=== PATIENT | male | born 1975 | race Caucasian/White ===

== ENCOUNTER → 2016-10-02 08:14 | Outpatient (CLI) | payer BC ==
[~2016-10-02 08:14] MED LIST: BUPRENORPHIN-N1 EACH SL; CELEXA20 MG PO; DEPAKOTE500 MG PO; PEPCID40 MG PO; PERCOCET 10/3251 TA1 PO; PROTONIX40 MG PO; SUBOXONE MIS 8-2; VALIUM5 MG PO; VYVANSE70 MG PO
[2016-11-06 14:15] VITALS: BMI 22.9
== END | disposition home or self-care (01) ==
LOC: D.MRI 08:14
DX: K86.9 Disease of pancreas, unspecified (principal)

== ENCOUNTER 2016-10-26 06:26 | Inpatient (IN) | payer BC ==
[2016-10-25 14:02] LABS: BASOPHILS 0.1 % (0.0-2.0); EOSINOPHILS 0.7 % (0-7); HEMATOCRIT 45.6 % (42.0-54.0); LYMPHOCYTES 28.7 % (15-50); MCH 29.5 pg (26.0-34.0); MCHC 35.1 g/dL (31.0-37.0); MEAN PLATELET VOLUME 10.1 fL (7.4-10.4); MONOCYTES 6.6 % (2-11); NEUTROPHILS 63.9 % (40-80); PLATELET COUNT 183 10x3/uL (130-400); RBC 5.43 10x6/uL (4.20-6.10); RDW 12.4 % (11.5-14.5); WBC 7.2 10x3/uL (4.8-10.8)
[2016-10-25 14:20] LABS: CALC OSMOLALITY 283 mosm/kg (275-300); CALCIUM 9.6 mg/dL (8.5-10.1); CARBON DIOXIDE 32.3 mmol/L (21.0-32.0); CHLORIDE - SERUM 102 mmol/L (98-107); CREATININE - SERUM 0.9 mg/dL (0.6-1.3); GLUCOSE 179 mg/dL (74-106); SODIUM 141 mmol/L (136-145); UREA NITROGEN 10 mg/dL (7-18); eGFR NON AFRICAN AMERICAN > 90 mL/min (90-120)
[~2016-10-26] VITALS: Ht 177.8 cm; Wt 81.6 kg
[~2016-10-26 06:26] MED LIST changes: -PEPCID40 MG PO; -PERCOCET 10/3251 TA1 PO; -PROTONIX40 MG PO
[2016-10-26 07:45] VITALS: BP 111/74; BMI 25.8
[2016-10-26 11:24] LABS: BASOPHILS 0.1 % (0.0-2.0); EOSINOPHILS 0.1 % (0-7); HEMATOCRIT 37.2 % (42.0-54.0); HEMOGLOBIN 12.8 g/dL (13.5-17.5); IMMATURE GRANULOCYTES 0.2 % (0-5); LYMPHOCYTES 14.9 % (15-50); MCH 28.8 pg (26.0-34.0); MCHC 34.4 g/dL (31.0-37.0); MCV 83.6 fL (80.0-100.0); MEAN PLATELET VOLUME 10.1 fL (7.4-10.4); MONOCYTES 3.6 % (2-11); NEUTROPHILS 81.1 % (40-80); PLATELET COUNT 203 10x3/uL (130-400); RBC 4.45 10x6/uL (4.20-6.10); RDW 12.3 % (11.5-14.5)
[2016-10-26 11:32] LABS: WBC 14.4 10x3/uL (4.8-10.8)
--- NOTE | 2016-10-26 12:55 | NUR ---
THE PATIENT TAKES SUBOXONE AT HOME AND HAS POOR PAIN CONTROL. UMPON ARRIVAL TO RECOVERY HE WAS SCREAMING AND THRASHING ARMS. VERSED DECREASED HIS AGITATION SOME.
--- NOTE | 2016-10-26 13:06 | NUR ---
FSBS 264 ANESTHESIA ORDERED NO TREATMENT FOR BS AT THIS TIME
--- NOTE | 2016-10-26 13:08 | NUR ---
DR MONTAGUE NOTIFIED OF PTS PAIN AND HE CAME TO BEDSIDE AND REVIEWED PACU MEDS GIVEN. NO MORE MEDS ORDERED AND DR MONTAGUE ORDERED TRANSPORT TO FLOOR.
[2016-10-26 13:25] VITALS: BP 128/88
[2016-10-26 13:58] VITALS: BP 128/86; BMI 25.8
--- NOTE | 2016-10-26 14:04 | NUR ---
PT RECIEVED FROM PACU PER BED. COMPLAINTS OF UNCONTROLLED PAIN-WILL SET UP BALANCE CLERK. TOVA X 2 NOTED WITH 1 DRAIN FULL OF BLOODY DRAINAGE AND THE OTHER DRAIN STILL TO SUCTION. MIDLINE DRESSING NOTED CLEAN DRY AND INTACT. NG NOTED TO RIGHT NARE DRAINING DARK DRAINAGE CONNECTED TO LIS. NO BOWEL SOUNDS HEARD. LUNG SOUNDS CLEAR BILAT. SCDS ON BILAT. ACEVEDO NOTED TO STAT LOCK. ETC02 CONNECTED AND READING OF 25 MM/HG. CALL LIGHT N REACH AND FAMILY AT BEDSIDE
--- NOTE | 2016-10-26 15:46 | NUR ---
PT RESTING WELL IN BED AFTER DOSE OF ATIVAN. PER ORDER FOR ANXIETY
[2016-10-26 20:00] VITALS: BP 150/78
[2016-10-27 03:00] VITALS: BP 135/83
[2016-10-27 06:09] LABS: ANION GAP 14.6 mmol/L (8-16); CALCIUM 8.4 mg/dL (8.5-10.1); CARBON DIOXIDE 24.5 mmol/L (21.0-32.0); HEMATOCRIT 37.9 % (42.0-54.0); HEMOGLOBIN 13.3 g/dL (13.5-17.5); MAGNESIUM - SERUM 1.6 mg/dL (1.8-2.4); MCH 29.1 pg (26.0-34.0); MCHC 35.1 g/dL (31.0-37.0); MCV 82.9 fL (80.0-100.0); MEAN PLATELET VOLUME 10.4 fL (7.4-10.4); PHOSPHOROUS 3.7 mg/dL (2.5-4.9); PLATELET COUNT 276 10x3/uL (130-400); POTASSIUM - SERUM 4.1 mmol/L (3.5-5.1); RBC 4.57 10x6/uL (4.20-6.10); RDW 12.5 % (11.5-14.5); WBC 23.3 10x3/uL (4.8-10.8)
[2016-10-27 06:13] LABS: CREATININE - SERUM 1.3 mg/dL (0.6-1.3)
[2016-10-27 07:16] LABS: LYMPHOCYTES 9 % (15-50); MONOCYTES 4 % (2-11); NEUTROPHILS 87 % (40-80); PLATELET ESTIMATE NORMAL
[2016-10-27 07:51] VITALS: BP 128/84
--- NOTE | 2016-10-27 08:32 | NUR ---
PT NOTED THIS AM TO HAVE MORE ANXIETY TURNED VOLUME DOWN ON PULSE OXIMETER LESS ANXIETY NOTED. PT HAD ATIVAN PER ORDER THIS AM FOR ANXIETY MOTHER AT BEDSIDE. NEW ORDER PER DR HASTINGS FOR MG++ RIDER AND TORADOL GIVEN IV PER ORDER MG++ OVER 2 HR INFUSING AT THIS TIME. TOVA DRAIN X 2 PATENT TO SANGUANOUS DRAINAGE MIDLINE DRESSING INTACT. NGT PATENT TO DARK BROWN FLUID TO LIS.
[2016-10-27 12:22] VITALS: Ht 177.8 cm; Wt 81.6 kg
[2016-10-27 12:26] VITALS: BP 124/81
--- NOTE | 2016-10-27 13:33 | OP ---
PATIENT NAME: GILDARDO VASQUEZ JR MEDICAL RECORD: [id number] :73 LOCATION:[id number] ADMISSION DATE:10/26/16 SURGEON: DAVIDE HASTINGS MD DATE OF OPERATION: 10/26/2016 PREOPERATIVE DIAGNOSES: 1. Distal pancreatic mass. 2. Incarcerated ventral hernia. 3. Incarcerated umbilical hernia. 4. Tobacco dependence syndrome. 5. Bipolar disorder. POSTOPERATIVE DIAGNOSES: 1. Distal pancreatic mass. 2. Incarcerated ventral hernia. 3. Incarcerated umbilical hernia. 4. Tobacco dependence syndrome. 5. Bipolar disorder. PROCEDURES: 1. Distal pancreatectomy with splenectomy. 2. Partial posterior gastrectomy with immediate repair. 3. Ventral and umbilical hernia repair with excision of umbilicus and abdominal wall inflammatory mass. SURGEON: Davide Hastings MD. REPORT OF PROCEDURE: The patient's abdomen was prepped and draped in sterile fashion. A midline incision was performed using a 10 blade. Electrocautery was used to dissect through the subcutaneous tissues and fascia. We entered the abdominal cavity. Once in the abdominal cavity, we followed the incision down towards the umbilical and ventral hernias. These ventral hernias had some incarcerated fatty tissue present within it. The surrounding tissues were very swollen. Once the tissues were freed up, I could feel another area of very firm swollen tissue in the fascia and extending into the muscular tissue on the left side of the abdomen. We excised all of this inflammatory tissue including the umbilicus, which was very inflamed with the skin excoriated and with the patient's known pancreatic mass, there is concern that this might actually be a metastatic disease. We removed all grossly abnormal tissue from the anterior abdominal wall and skin. This was sent off for permanent specimen. We then approached the patient's pancreas. We started by taking down any attachments we could find to the patient's spleen from the splenocolic ligament. This was done using electrocautery. We were then able to mobilize the spleen medially. The spleen itself was very large and inflamed. As we continued our dissection superiorly to free up any adhesions of the spleen to the diaphragm, we were able to get around to the stomach and can see that this large pancreatic mass was actually adherent to the posterior wall of the stomach. I continued my dissection down into the lesser sac using an EnSeal device. Once in the lesser sac, we could clearly visualize this attachment of the stomach to the anterior aspect of the mass. I was able to get inferior to the mass and then took down any of the mesenteric attachments that I could find. We were able to free up the inferior aspect of the pancreas and get past the mass. There were some enlarged blood vessels, which were encountered doing this and these were tied off with 2-0 silk ties. We continued our dissection from the inferior aspect of the pancreas out lateral. As we continued this, we were able to mobilize the OPERATIVE REPORT [id number] GILDARDO VASQUEZ JR spleen more medially. Eventually, got this completely freed up and started on the superior aspect of the patient's pancreas, we took down the peritoneal attachments and began mobilization of the superior attachments of the spleen to the posterior abdomen. As we continued this dissection eventually, we got held up by the attachments of the mass to the posterior stomach and eventually just took a chunk of the posterior aspect of the stomach, which is about the size of half dollar. At this point, we were able to dissect out the pancreas, which was normal. As we got more proximal towards the head, we were able to dissect posterior to the pancreas over the portal vein. The pancreas was then transected with a 60 white load Endo-SOLOMON stapler. The splenic artery was dissected free and this was transected with a 60 white load Endo-SOLOMON and was tied off with 2-0 silk ties. As we continued our dissection medially to take the spleen off, we were able to encounter the patient's splenic vein. This was transected with 3 ties proximally with 2-0 silks and once tie laterally. At this point, we had all the vascular attachments off of the spleen and pancreas. We continued our dissection with the EnSeal and was eventually able to take the pancreas off the posterior abdominal wall. It appeared that part of the patient's adrenal gland was adherent to this mass and a portion of the left adrenal was removed. After we had taken the mass out, we sent it off for frozen specimen and came back as pancreatic adenocarcinoma with the margins being clear. The attachments of the stomach did not show any evidence of malignant invasion. The area was irrigated out thoroughly with normal saline and any sign of any bleeding was treated with either 2-0 stick ties or with electrocautery. Eventually, we just had a little bit of oozing from the bed where the adrenal gland was present and we eventually just put some Deonna around this area and allowed it to sit for a while. At this point, we had no sign of any active bleeding. A 19-Tuvaluan Nikhil drains times 2 were inserted through the left upper quadrant and the lateral subcostal region. The superior one was placed deep in the recess of the diaphragm where the spleen had been present and rotated this around to the distal end of the pancreas. The other one was placed more over the abdominal tissues and again, rested at the distal end of the pancreas and posterior to the stomach. The gastrotomy was then closed with a 2-layer closure using internal layer of running 3-0 Vicryls followed by multiple Lemberted 3-0 silks. The NG tube was affixed in good position and it rested in the antrum of the stomach. At this point, the midline fascia was reapproximated with running #1 loop PDS times 2 and the skin was closed with matilde. A total of 20 cc of 0.25% Marcaine with epinephrine was infused in the posterior aspect of the patient's fascial layer as TAP block. The skin was then closed with matilde after the wound was irrigated out with normal saline. COMPLICATIONS: None. CONDITION: Stable. ANESTHESIA: General endotracheal and a TAP block. BLOOD LOSS: 500 mL. TRANSINT:[id number] Voice Confirmation ID: [id number] DOCUMENT ID: [id number] OPERATIVE REPORT [id number] GILDARDO VASQUEZ JR, CHRISTIAN MD at 1333 CC: SHANTE PARADA MD and MICHAEL ALLEN MD [id number] DICTATION DATE: 10/26/16 1246 MOTORCYCLE DELIVERER: 10/26/16 1404 ADM IN [facility] [address] [facility] [place] [address]
[2016-10-27 16:09] VITALS: BP 135/77
--- NOTE | 2016-10-27 19:38 | NUR ---
ASSESSMENT COMPLETED, ACEVEDO DRAINING TO GRAVITY, ALL IV FLUIDS INFUSING WITHOUT DIFFICULTY, ECO2 MONITOR IN PLACE ALONG WITH SCD'S, NO ACUTE DISTRESS NOTED, SR'S UP X2, CL IN REACH, WILL MONITOR
--- NOTE | 2016-10-27 22:26 | NUR ---
PRN ATIVAN GIVEN PER REQUEST FOR ANXIETY ALONG WITH ICE CHIPS, KRISHAN WELL, DENIES OTHER NEEDS AT THIS TIME, NO DISTRESS NOTED, CL IN REACH
[2016-10-28 04:00] VITALS: BP 107/67
[2016-10-28 05:43] LABS: BASOPHILS 0.1 % (0.0-2.0); EOSINOPHILS 0.1 % (0-7); HEMATOCRIT 34.7 % (42.0-54.0); HEMOGLOBIN 11.9 g/dL (13.5-17.5); IMMATURE GRANULOCYTES 0.3 % (0-5); LYMPHOCYTES 9.9 % (15-50); MCH 29.1 pg (26.0-34.0); MCHC 34.3 g/dL (31.0-37.0); MCV 84.8 fL (80.0-100.0); MEAN PLATELET VOLUME 10.1 fL (7.4-10.4); MONOCYTES 5.7 % (2-11); NEUTROPHILS 83.9 % (40-80); PLATELET COUNT 250 10x3/uL (130-400); RBC 4.09 10x6/uL (4.20-6.10); RDW 12.5 % (11.5-14.5); WBC 25.1 10x3/uL (4.8-10.8)
[2016-10-28 06:09] LABS: CALC OSMOLALITY 272 mosm/kg (275-300); CALCIUM 8.5 mg/dL (8.5-10.1); CARBON DIOXIDE 27.6 mmol/L (21.0-32.0); CHLORIDE - SERUM 99 mmol/L (98-107); GLUCOSE 191 mg/dL (74-106); POTASSIUM - SERUM 3.6 mmol/L (3.5-5.1); SODIUM 134 mmol/L (136-145); UREA NITROGEN 13 mg/dL (7-18)
[2016-10-28 06:11] LABS: CREATININE - SERUM 0.8 mg/dL (0.6-1.3); PHOSPHOROUS 1.9 mg/dL (2.5-4.9); eGFR NON AFRICAN AMERICAN > 90 mL/min (90-120)
--- NOTE | 2016-10-28 07:00 | NUR ---
REPORT RECIEVED ASSUMED CARE. PATIENT IN BED WITH IV INTACT. NO COMPLAINTS. CALL LIGHT WITHIN REACH.
[2016-10-28 08:12] VITALS: BP 118/62
--- NOTE | 2016-10-28 08:45 | NUR ---
ASSESSMENT COMPLETE, VS STABLE. NO COMPLAINTS AT THIS TIME. IV INTACT. DRESSING TO ABDDOMEN CLEAN AND DRY. TOVA X 2 INTACT AND COMPRESSED. BSCDS ON AND WORKING. ACEVEDO INTACT. CALL LIGHT WITHIN REACH. FAMILY AT BEDSIDE.
[2016-10-28 11:37] VITALS: BP 139/87
--- NOTE | 2016-10-28 13:00 | NUR ---
PATIENT IN BED WITH IV INTACT. NO COMPLAINTS AT THIS TIME. CALL LIGHT WITHIN REACH. EYES CLOSED RESTING QUIETLY.
[2016-10-28 15:07] VITALS: BP 123/81
--- NOTE | 2016-10-28 15:57 | NUR ---
PATIENT ACEVEDO REMOVED AT THIS TIME. TOLERATED WITH SMALL AMOUNT OF PAIN. IV INTACT. NO COMPLAINTS. CALL LIGHT WITHIN REACH.
--- NOTE | 2016-10-28 18:27 | NUR ---
PATIENT IN BED WITH IV INTACT. BSCDS ON AND WORKING. DRESSING TO ABDOMEN CDI. TOVA X 2 INTACT AND COMPRESSED. NO COMPLAINTS. CALL LIGHT WITHIN REACH.
--- NOTE | 2016-10-28 18:32 | NUR ---
PATIENT IN BED WITH IV INTACT. NO COMPLAINTS AT THIS TIME. BSCDS ON AND WORKING. CALL LIGHT WITHIN REACH.
--- NOTE | 2016-10-28 19:45 | NUR ---
LYING IN BED AWAKE, FAMILY AT BEDSIDE, ASSESSMENT COMPLETED, NO ACUTE DISTRESS NOTED, FALL PRECAUTIONS IN PLACE, CL IN REACH, WILL MONITOR
--- NOTE | 2016-10-28 21:04 | NUR ---
MEDS GIVEN PER KRISHAN MUNOZ WELL, FAMILY IN ROOM, EDUCATED ON AIRCRAFT REFUELLER USE, UNDERSTANDING VOICED, CL IN REACH
[2016-10-28 21:58] VITALS: BP 117/79
--- NOTE | 2016-10-28 23:07 | NUR ---
RESTING WITH EYES CLOSED, RESP WITH EASE, ECO2 MONITOR IN PLACE, FAMILY IN ROOM, CL IN REACH
[2016-10-29 05:00] VITALS: BP 135/74
--- NOTE | 2016-10-29 07:00 | NUR ---
REPORT RECIEVED ASSUMED CARE. PATIENT IN BED WITH NO COMPLAINTS. IV INTACT. NGT INTACT. CALL LIGHT WITHIN REACH.
--- NOTE | 2016-10-29 08:15 | NUR ---
PATIENT ASSESSMENT COMPLETE, VS STABLE. NO COMPLAINTS AT THIS TIME. IV INTACT. NGT LIWS. TOVA X 2 COMPRESSED AND DRESSING CDI. ABDOMINAL INCISION WITH DRESSING CDI. CALL LIGHT WITHIN REACH.
[2016-10-29 08:37] VITALS: BP 133/75
[2016-10-29 12:00] VITALS: BP 126/71
--- NOTE | 2016-10-29 12:50 | NUR ---
PATIENT IN BED EYES CLOSED RESTING QUIETLY AT THIS TIME. CALL LIGHT WITHIN REACH.
[2016-10-29 15:58] VITALS: BP 115/71
--- NOTE | 2016-10-29 16:30 | NUR ---
PATIENT IN BED WITH NO COMPLAINTS AT THIS TIME. IV INTACT. NGT LIWS. CALL LIGHT WITHIN REACH.
--- NOTE | 2016-10-29 18:08 | NUR ---
PATIENT IN BED WITH NO COMPLAINTS AT THIS TIME. NGT AND TOVA DRAINS INTACT. BSCDS ON AND WORKING. IV INTACT. CALL LIGHT WITHIN REACH.
--- NOTE | 2016-10-29 19:10 | NUR ---
RECIEVED SHIFT REPORT. PT IS LYING IN BED. ALERT AND ORIENTED AND ABLE TO VERBALIZE NEEDS. IV IS PATENT AND FLUIDS ARE RUNNING PER ORDER. SCD'S OFF AT THIS TIME. NGT TO RIGHT NARE PATENT AND CONNECTED TO LIWS PER ORDER. DRESSING TO ABDOMEN C/D/I. TOVA DRAINS X 2 INTACT AND COMPRESSED WITH SITE CLEAN. PT STATES PAIN IS 4/10. PT HAS BEEN UP WITH PHYSICAL THERAPY BUT IS ABLE TO TURN SELF IN BED FOR COMFORT AND SKIN CARE. NO NEEDS ARE VERBALIZED AT THIS TIME. WILL CONTINUE TO MONITOR. SIDE RAILS ARE UP X 2. BED IS IN LOWEST POSITION. CALL LIGHT IS WITHIN REACH.
--- NOTE | 2016-10-29 19:11 | NUR ---
DR STEVE CARTAGENA. REMOVAL OF NGT POSSIBLE TOMORROW. PATIENT C/O "CRAMPS" @ SURGICAL SITE. DAVOL DRAINS X 2. USING PLASTIC SHEETING CUTTER FOR PAIN MANAGEMENT.
--- NOTE | 2016-10-29 20:29 | NUR ---
SHIFT ASSESSMENT COMPLETED. NIGHT MEDS GIVEN WITH NO PROBLEMS. PT REQUESTING PRN ATIVAN FOR ANXIETY. ADMINISTERED PER ORDER. DENIES FURTHER NEEDS. WILL MONITOR. SIDE RAILS X 2. BED LOW. CALL LIGHT IN REACH.
[2016-10-29 21:00] VITALS: BP 131/78
[2016-10-30 01:00] VITALS: BP 122/68
[2016-10-30 05:00] VITALS: BP 133/82
--- NOTE | 2016-10-30 07:00 | NUR ---
REPORT RECIEVED ASSUMED CARE. PATIENT IN BED WITH IV INTACT. NO COMPLAINTS AT THIS TIME. CALL LIGHT WITHIN REACH.
--- NOTE | 2016-10-30 07:50 | NUR ---
ASSESSMENT COMPLETE, VS STABLE. COMPLAINTS OF ABDOMINAL PAIN AT THIS TIME. EXPLAINED TO PUSH MATERIAL HANDLER LOADER BUTTON FOR PAIN. VERBALIZED UNDERSTANDING. IV INTACT. NGT LIWS. TOVA X 2 CDI AND COMPRESSED. REFUSES BSCDS AT THIS TIME. CALL LIGHT WITHIN REACH.
[2016-10-30 07:56] VITALS: BP 125/70
[2016-10-30 09:01] LABS: BASOPHILS 0.1 % (0.0-2.0); EOSINOPHILS 1.1 % (0-7); HEMATOCRIT 32.2 % (42.0-54.0); IMMATURE GRANULOCYTES 0.3 % (0-5); LYMPHOCYTES 8.1 % (15-50); MCH 28.8 pg (26.0-34.0); MCHC 34.2 g/dL (31.0-37.0); MCV 84.3 fL (80.0-100.0); NEUTROPHILS 81.4 % (40-80); RBC 3.82 10x6/uL (4.20-6.10); RDW 12.6 % (11.5-14.5); WBC 15.7 10x3/uL (4.8-10.8)
[2016-10-30 09:02] LABS: PLATELET COUNT 409 10x3/uL (130-400)
[2016-10-30 09:15] LABS: CALC OSMOLALITY 282 mosm/kg (275-300); CALCIUM 8.7 mg/dL (8.5-10.1); CARBON DIOXIDE 32.5 mmol/L (21.0-32.0); CHLORIDE - SERUM 101 mmol/L (98-107); CREATININE - SERUM 0.7 mg/dL (0.6-1.3); GLUCOSE 191 mg/dL (74-106); MAGNESIUM - SERUM 1.8 mg/dL (1.8-2.4); PHOSPHOROUS 3.6 mg/dL (2.5-4.9); POTASSIUM - SERUM 3.8 mmol/L (3.5-5.1); SODIUM 139 mmol/L (136-145); UREA NITROGEN 13 mg/dL (7-18); eGFR NON AFRICAN AMERICAN > 90 mL/min (90-120)
--- NOTE | 2016-10-30 09:19 | NUR ---
Patient Name: GILDARDO VASQUEZ Admission Status: Elective Accout number: [id number] Admission Date: 10-26-2016 : 1975 Admission Diagnosis: Attending: AHMET Current LOS: 4 Anticipated DC Date: 11-03-2016 Planned Disposition: Home or Self Care Primary Insurance: [employer] O Discharge Planning Comments: CM MET WITH PATIENT REGARDING D/C NEEDS AND PLANS. PATIENT STATED HE LIVES WITH HIS MOTHER AND SHE WILL DRIVE HIM HOME AT DISCHARGE. PATIENT STATED THERE ARE 3 STEPS W/RAILS TO ENTER HOME AND NO STAIRS INSIDE. PATIENT STATED HE IS INDEPENDENT WITH HIS CARE AND HAS A WALKER, AND CANE AT HOME IF NEEDED. PATIENTS PCP IS DR. ALLEN AND USES [facility]. PATIENT REFUSED HOME HEALTH AT THIS TIME AND STATED IF HIS DOCTOR SAYS HE NEEDS IT AT DISCHARGE THEN HE WILL USE HOME HEALTH. CM WILL CONTINUE TO FOLLOW PATIENT WITH D/C NEEDS AND PLANS. PCP DR. ALLEN [facility]- [phone] [place] [phone] Smoke Jumper: Eloisa Castano Is the patient Alert and Oriented? Yes 0 * How many steps to enter\exit or inside your home? 3 W/RAILS 0 * PCP DR. ALLEN 0 * [facility]acy [facility] 0 * Preadmission Environment Home with Family 0 * ADLs Independent 0 * Equipment Cane Walker 0 * List name and contact numbers for known caregivers / representatives who currently or will assist patient after discharge: [place] [place] [phone] * Community resources currently utilized None 0 * Additional services required to return to the preadmission environment? Yes 0 * Can the patient safely return to the preadmission environment? Yes 0 * Has this patient been hospitalized within the prior 30 days at any hospital? No 0 Grand Total: 0
--- NOTE | 2016-10-30 11:45 | NUR ---
PATIENT NGT DISCONTINUED PER PHYSICIANS ORDERS BY VERNON BURRIS. PATIENT RECIEVED CLEAR LIQUIDS AT THIS TIME. IV INTACT. NO COMPLAINTS. CALL LIGHT WITHIN REACH.
[2016-10-30 12:42] VITALS: BP 136/83
--- NOTE | 2016-10-30 13:00 | NUR ---
PATIENT TOLERATED CLEARS WITH NO N/V. IV INTACT. FAMILY AT BEDSIDE. CALL LIGHT WITHIN REACH.
--- NOTE | 2016-10-30 13:11 | NUR ---
NUTRITION MONITORING & EVAL CHART REVIEWED. CLEAR LIQUID DIET STARTED. WILL MONITOR DIET ADVANCEMENT, PO INTAKE. RD FOLLOWING
[2016-10-30 16:07] VITALS: BP 113/60
--- NOTE | 2016-10-30 16:45 | NUR ---
PATIENT SITTING UP IN BED WITH NO COMPLAINTS. IV INTACT. TOVA X 2 INTACT. DRESSING TO ABDOMINAL INCISION CLEAN AND DRY. CALL LIGHT WITHIN REACH.
--- NOTE | 2016-10-30 18:45 | NUR ---
PATIENT IN BED WITH IVINTACT. NO COMPLAINTS AT THIS TIME. IV INTACT. CALL LIGHT WITHIN REACH.
--- NOTE | 2016-10-30 19:10 | NUR ---
RECIEVED SHIFT REPORT. PT IS LYING IN BED. ALERT AND ORIENTED AND ABLE TO VERBALIZE NEEDS. IV IS PATENT AND FLUIDS ARE RUNNING PER ORDER. SCD'S OFF AT THIS TIME. PT IS AMBULATORY WITH ASSISTANCE BUT IS ABLE TO TURN SELF IN BED FOR COMFORT AND SKIN CARE. DRESSING TO MIDLINE ABDOMEN C/D/I. TOVA DRAINS X 2 INTACT WITH SITE C/D AND BULBS COMPRESSED. PT STATES PAIN IS 5/10 WITH MEDICAL CENTER MANAGER PUMP. NO NEEDS ARE VERBALIZED AT THIS TIME. WILL CONTINUE TO MONITOR. SIDE RAILS ARE UP X 2. BED IS IN LOWEST POSITION. CALL LIGHT IS WITHIN REACH.
--- NOTE | 2016-10-30 20:05 | NUR ---
SHIFT ASSESSMENT COMPLETED. PT STATUS REMAINS UNCHANGED FROM PREVIOUS. STUDENT WITH INSTRUCTOR WILL BE GIVING NIGHT TIME MEDS. NO NEEDS ARE VOICED. WILL MONITOR. SIDE RAILS X 2. BED LOW. CALL LIGHT IN REACH.
[2016-10-30 21:00] VITALS: BP 119/73
[2016-10-31 01:00] VITALS: BP 122/68
[2016-10-31 05:00] VITALS: BP 110/68
[2016-10-31 05:50] LABS: BASOPHILS 0.3 % (0.0-2.0); EOSINOPHILS 4.9 % (0-7); HEMATOCRIT 30.4 % (42.0-54.0); HEMOGLOBIN 10.2 g/dL (13.5-17.5); IMMATURE GRANULOCYTES 0.3 % (0-5); LYMPHOCYTES 15.6 % (15-50); MCH 28.6 pg (26.0-34.0); MCHC 33.6 g/dL (31.0-37.0); MCV 85.2 fL (80.0-100.0); MEAN PLATELET VOLUME 9.3 fL (7.4-10.4); MONOCYTES 13.4 % (2-11); NEUTROPHILS 65.5 % (40-80); PLATELET COUNT 482 10x3/uL (130-400); RBC 3.57 10x6/uL (4.20-6.10); RDW 12.3 % (11.5-14.5); WBC 13.8 10x3/uL (4.8-10.8)
[2016-10-31 06:25] LABS: CALC OSMOLALITY 282 mosm/kg (275-300); CALCIUM 8.4 mg/dL (8.5-10.1); CHLORIDE - SERUM 101 mmol/L (98-107); CREATININE - SERUM 0.7 mg/dL (0.6-1.3); GLUCOSE 154 mg/dL (74-106); MAGNESIUM - SERUM 1.8 mg/dL (1.8-2.4); PHOSPHOROUS 4.3 mg/dL (2.5-4.9); POTASSIUM - SERUM 3.6 mmol/L (3.5-5.1); SODIUM 140 mmol/L (136-145); UREA NITROGEN 14 mg/dL (7-18); eGFR NON AFRICAN AMERICAN > 90 mL/min (90-120)
--- NOTE | 2016-10-31 08:18 | NUR ---
PT. AOX4 RESP.EVEN AND NONLABORED LUNG SOUNDS CLEAR. PT. DENIES NEEDS AT THIS TIME. SITTING IN BED AND EATING BREAKFAST. SKIN PINK WARM AND DRY WITH ABD SI CLEAN DRY AND INTACT WITH NO DRAINAGE ON DRESSINGS.[id number](HYPOACTIVE) BED IN LOWEST SETTING, CALL LIGHT WITHIN REACH. WILL CONTINUE TO MONITOR.
[2016-10-31 08:19] VITALS: BP 94/48
--- NOTE | 2016-10-31 10:22 | NUR ---
IV TO RIGHT FOREARM IS LEAKING. D/C WITH CATHETER INTACT. RESITED FURTHER UP RIGHT FOREARM WITH 20G AFTER ONE ATTEMPT.
[2016-10-31 11:46] VITALS: BP 98/65
--- NOTE | 2016-10-31 14:50 | NUR ---
TOVA DRAIN #2 REMOVED VIA ORDERS WITH 23 ML OF SERSAGUINOUS DRAINAGE PT TOLERATED WITH MINIMAL DISCOMFORT AND DENIES PAIN AT THIS TIME. WILL CONTINUE TO MONITOR
[2016-10-31 15:08] VITALS: BP 91/63
--- NOTE | 2016-10-31 19:20 | NUR ---
RECIEVED SHIFT REPORT. PT IS LYING IN BED. ALERT AND ORIENTED AND ABLE TO VERBALIZE NEEDS. IV IS PATENT AND SALINE LOC AT THIS TIME. PT IS AMBULATORY BUT WAS INSTRUCTED TO CALL FOR ANY ASSISTANCE NEEDED. DRESSING TO MIDLINE ABDOMEN C/D/I. TOVA DRAIN TO LEFT ABDOMEN INTACT WITH SITE CLEAN AND COMPRESSED. PT STATES PAIN IS 5/10. SCD'S OFF PER PT REQUEST. NO NEEDS ARE VERBALIZED AT THIS TIME. WILL CONTINUE TO MONITOR. SIDE RAILS ARE UP X 2. BED IS IN LOWEST POSITION. CALL LIGHT IS WITHIN REACH.
[2016-10-31 21:00] VITALS: BP 108/62
--- NOTE | 2016-10-31 21:40 | NUR ---
SHIFT ASSESSMENT COMPLETED. NIGHT MEDS GIVEN WITH NO PROBLEMS. PT C/O PAIN 12/11. ADMNISTERED PRESCRIBED PRN PERCOCET PER ORDER. DENIES FURTHER NEEDS. WILL MONITOR. SIDE RAILS X 2. BED LOW. CALL LIGHT IN REACH.
[2016-11-01 01:00] VITALS: BP 110/66
[2016-11-01 05:00] VITALS: BP 122/60
[2016-11-01 07:54] VITALS: BP 93/50
[2016-11-01 12:31] VITALS: BP 110/57
[2016-11-01] MEDS ORDERED: PERCOCET 10/3251 TA1 PO (12:55)
[2016-11-01] MEDS ORDERED: PROTONIX40 MG PO (12:55)
--- NOTE | 2016-11-01 13:10 | NUR ---
CM REASSESSMENT NOTE: PATIENT IS DISCHARGING HOME TODAY AND DENIED HOME HEALTH OR ANY OTHER NEEDS. PATIENTS MOTHER IS DRIVING HIM HOME.
--- NOTE | 2016-11-01 13:35 | NUR ---
REQUESTED AND GIVEN ONE PERCOCET PO FOR C/O ABDOMINAL PAIN LEVEL 5. WILL MONITOR.
--- NOTE | 2016-11-01 14:12 | NUR ---
PT AND SPOUSE INSTRUCTED ON PROPER TOVA DRAIN SITE CLEANING AND MEASUREMENT OF DRAINAGE FROM DRAIN. SIGNS AND SYMPTOMS OF INFECTION TO REPORT TO . PT. AND GAVE RETURN DEMOSTRATION ON CARE AND MONITORING OF TOVA DRAIN. ONE NEW PRESCRIPTION FOR PAIN MEDICATION SENT WITH PT. AND . PT. VERBALIZES UNDERSTANDING FOR ALL DISCHARGE INSTRUCTIONS.
--- NOTE | 2016-11-01 14:13 | NUR ---
IV DISCONTINUED WITH CATHETER INTACT. PT. TAKEN TO PRIVATE VEHICLE VIA WHEELCHAIR. PT. DENIES NEEDS AT THIS TIME.
== END 2016-11-01 14:15 | disposition home or self-care (01) | DRG 406 ==
LOC: D.SDCHOLD 06:26 → D.MS 06:26 → D.SDCHOLD 08:30 → D.MS 13:13
PROVIDERS: Anesthesiology; ADMIT Surgery
PROC: 07TP0ZZ Resection of Spleen, Open Approach (ICD-10-PCS; 2016-10-26)
PROC: 0DB60ZZ Excision of Stomach, Open Approach (ICD-10-PCS; 2016-10-26)
PROC: 0WQF0ZZ Repair Abdominal Wall, Open Approach (ICD-10-PCS; 2016-10-26)
PROC: 0FBG0ZZ Excision of Pancreas, Open Approach (ICD-10-PCS; principal; 2016-10-26 08:45)
DX: C25.9 Malignant neoplasm of pancreas, unspecified (principal); K43.6 Other and unspecified ventral hernia with obstruction, without gangrene; K42.0 Umbilical hernia with obstruction, without gangrene; D64.89 Other specified anemias; R73.9 Hyperglycemia, unspecified; F17.200 Nicotine dependence, unspecified, uncomplicated; F31.9 Bipolar disorder, unspecified

== ENCOUNTER 2016-11-05 11:38 | Inpatient (IN) | payer BC ==
[~2016-11-05] VITALS: Ht 177.8 cm; Wt 72.6 kg
[~2016-11-05 11:38] MED LIST changes: +PERCOCET 10/3251 TA1 PO; +PROTONIX40 MG PO
[2016-11-05 12:08] LABS: HEMATOCRIT 29.8 % (42.0-54.0); HEMOGLOBIN 9.9 g/dL (13.5-17.5); MCH 28.8 pg (26.0-34.0); MCHC 33.2 g/dL (31.0-37.0); MCV 86.6 fL (80.0-100.0); MEAN PLATELET VOLUME 8.3 fL (7.4-10.4); PLATELET COUNT 909 10x3/uL (130-400); RBC 3.44 10x6/uL (4.20-6.10); RDW 12.3 % (11.5-14.5); WBC 26.6 10x3/uL (4.8-10.8)
[2016-11-05 12:21] LABS: ALBUMIN 2.3 g/dL (3.4-5.0); ALKALINE PHOSPHATASE 121 U/L (46-116); ALT (SGPT) 25 U/L (10-68); BILIRUBIN - TOTAL 0.25 mg/dL (0.2-1.3); CALC OSMOLALITY 277 mosm/kg (275-300); CALCIUM 8.2 mg/dL (8.5-10.1); CARBON DIOXIDE 35.1 mmol/L (21.0-32.0); CHLORIDE - SERUM 96 mmol/L (98-107); CREATININE - SERUM 0.8 mg/dL (0.6-1.3); GLUCOSE 194 mg/dL (74-106); POTASSIUM - SERUM 3.7 mmol/L (3.5-5.1); PROTEIN - SERUM 6.4 g/dL (6.4-8.2); SODIUM 137 mmol/L (136-145); UREA NITROGEN 10 mg/dL (7-18); eGFR NON AFRICAN AMERICAN > 90 mL/min (90-120)
[2016-11-05 12:38] LABS: LYMPHOCYTES 14 % (15-50); MONOCYTES 7 % (2-11); NEUTROPHILS 79 % (40-80); PLATELET ESTIMATE INCREASED
[2016-11-05 14:16] LABS: COLOR YELLOW (YELLOW)
[2016-11-05 14:17] LABS: APPEARANCE CLEAR (CLEAR); BILIRUBIN NEGATIVE (NEGATIVE); GLUCOSE 250 mg/dL (NEGATIVE); KETONE NEGATIVE (NEGATIVE); LEUKOCYTE ESTERASE NEGATIVE (NEGATIVE); NITRITE NEGATIVE (NEGATIVE); PROTEIN NEGATIVE (NEGATIVE); SPECIFIC GRAVITY 1.015 (1.005-1.020); UROBILINOGEN NORMAL (NORMAL)
[2016-11-05 15:59] LABS: UDS - AMPHET NEGATIVE QUAL (NEGATIVE); UDS - BARB NEGATIVE QUAL (NEGATIVE); UDS - BENZO POSITIVE QUAL (NEGATIVE); UDS - COCAINE NEGATIVE QUAL (NEGATIVE); UDS - METH NEGATIVE QUAL (NEGATIVE); UDS - OPIATE POSITIVE QUAL (NEGATIVE); UDS - PCP NEGATIVE QUAL (NEGATIVE); UDS - THC NEGATIVE QUAL (NEGATIVE)
--- NOTE | 2016-11-05 16:30 | NUR ---
PT REPORT REC'D FROM FATUMA TRIANA. ROOM READY AND AWAITING PT ARRIVAL.
--- NOTE | 2016-11-05 17:00 | NUR ---
PT REC'D TO ROOM. AAOX4. EXTREMELY LETHARGIC TO THE POINT WHERE IT IS HARD TO KEEP PT AWAKE DURING CONVERSATION. REGULAR HEART RATE AND RHYTHM. LUNG SOUNDS CLEAR AND EQUAL BIILAT. BOWEL SOUNDS ACTIVE X4 QUADRANTS. TOVA DRAIN TO LLQ EMPTIED OF 40CC'S OF THICK ALDRIDGE FLUID THAT HAS A SOUR ODOR. MIDLINE ABD INCISION HAS 30 LEV. APPROXIMATE, RED AROUND EDGES OF LEV, NO DRAINAGE OR SWELLING. DRAIN SITE RED AND SWOLLEN WITHOUT DRAINAGE. BED LOW, CALL LIGHT IN REACH, DENEIS NEEDS.
[2016-11-05 17:07] VITALS: BP 78/51; BMI 23.0
[2016-11-05] MEDS ORDERED: PEPCID40 MG PO (17:07)
--- NOTE | 2016-11-05 18:26 | NUR ---
Patient Name: GILDARDO LAURA Admission Status: Elective Accout number: [id number] Admission Date: 11-05-2016 : 1975 Admission Diagnosis: Pneumonia Attending: CORRY Current LOS: 1 Anticipated DC Date: 11-10-2016 Planned Disposition: Home with Home Health Primary Insurance: [employer] O Discharge Planning Comments: Cm met with patient to complete initial discharge planning assessment. Patient and his mother gave consent to complete assessment. Patient lives at home with his mother. He recently had surgery and still has yenifer present. Consult to Dr. Aranda made from the ER as patient had follow up apt scheduled for 11/08/16. Patient currently has [facility]. Patient plans to return home with his mother's assistance and resumption of [facility] at discharge. CM will continue to follow and assist with dc plan/needs. Disability Examiner: Yuliana Campbell RN, [facility] [phone] Is the patient Alert and Oriented? Yes * How many steps to enter\exit or inside your home? THREE * PCP Dr. Vigil * Pharmacy [facility] * Preadmission Environment Home with Family * ADLs Partial Dependent * Partial ADLs (Assistance needed) Bathing Dressing Transfers * Equipment None * Other Equipment Yenifer present to abdomen. Has a follow up with Dr. Aranda scheduled for 11/08/16. * List name and contact numbers for known caregivers / representatives who currently or will assist patient after discharge: Bridget Laura - mother - [phone] or [phone] * Community resources currently utilized Home Health * Please name any agencies selected above. [facility] * Additional services required to return to the preadmission environment? No * Can the patient safely return to the preadmission environment? Yes * Has this patient been hospitalized within the prior 30 days at any hospital? Yes
--- NOTE | 2016-11-05 20:00 | NUR ---
ASSESSMENT PER FLOWSHEET. ABDOMINAL INCISION DRESSING C/D/I WITH TOVA DRAIN IN PLACE AND COMPRESSED WITH ALDRIDGE COLORED DRAINAGE. IV PATENT LEFT FOREARM OF NS AT 999 CC'S/HR BOLUS INFUSING. IV #2 LEFT AC SALINE LOCKED. AT BEDSIDE ACEVEDO TO BS DRAINAGE WITH MATILDA COLORED URINE.
[2016-11-05 21:00] VITALS: BP 83/40
--- NOTE | 2016-11-05 21:30 | NUR ---
RESTING QUIETLY/ BP STILL RUNNING 86/55.
--- NOTE | 2016-11-05 23:24 | NUR ---
BOLUS COMPLETED PATIENT'S B/P STILL RUNNING 88 SYSTOLIC. 1000CC'S NS HUNG RUNNING AT 100CC'S/HR. AT BEDSIDE.
--- NOTE | 2016-11-06 00:36 | NUR ---
C/O INCISIONAL PAIN IN ABDOMEN RATES PAIN LEVEL #6 MORPHINE 4 MG IV GIVEN FOR PAIN CONTROL.
[2016-11-06 01:30] VITALS: BP 109/64
[2016-11-06 04:00] VITALS: BP 104/63
--- NOTE | 2016-11-06 04:22 | NUR ---
EYES CLOSED RESPIRATIONS WITH EASE AND UNLABORED.
--- NOTE | 2016-11-06 07:10 | NUR ---
PATIENT IS RESTING QUIETLY WITH EYES CLOSED. AWOKE TO MY ENTRY, AT THE BEDSIDE. DENIES NEEDS AT THIS TIME. IVF INFUSING.
[2016-11-06 07:48] VITALS: BP 99/59
--- NOTE | 2016-11-06 10:15 | NUR ---
PATIENT GIVEN MORPHINE FOR ABDOMINAL PAIN THAT HE RATES A 4-5. HE DESCRIBES IT A DULL CRAMP WITH AN OCCASIONAL SHARP PAIN. HIS IS RESTING IN THE BEDSIDE CHAIR WITH EYES CLOSED. HIS IV FLUIIDS ARE INFUSING PER ORDERS. HE HAS THE CALL LIGHT WITHIN HIS REACH. DENIES OTHER NEEDS AT THIS TIME. URINE IS PATENT TO THE BEDSIDE DRAINAGE BAG.
[2016-11-06 11:50] LABS: HEMATOCRIT 27.5 % (42.0-54.0); HEMOGLOBIN 8.8 g/dL (13.5-17.5); MCV 87.6 fL (80.0-100.0); MEAN PLATELET VOLUME 8.5 fL (7.4-10.4); PLATELET COUNT 941 10x3/uL (130-400); RBC 3.14 10x6/uL (4.20-6.10); RDW 12.6 % (11.5-14.5)
[2016-11-06 12:20] LABS: ALBUMIN 2.2 g/dL (3.4-5.0); ALKALINE PHOSPHATASE 118 U/L (46-116); ALT (SGPT) 20 U/L (10-68); CALC OSMOLALITY 276 mosm/kg (275-300); CALCIUM 8.5 mg/dL (8.5-10.1); CARBON DIOXIDE 31.7 mmol/L (21.0-32.0); CHLORIDE - SERUM 101 mmol/L (98-107); CREATININE - SERUM 0.7 mg/dL (0.6-1.3); GLUCOSE 148 mg/dL (74-106); PROTEIN - SERUM 5.4 g/dL (6.4-8.2); SODIUM 138 mmol/L (136-145); UREA NITROGEN 8 mg/dL (7-18); eGFR NON AFRICAN AMERICAN > 90 mL/min (90-120)
[2016-11-06 12:23] LABS: POTASSIUM - SERUM 4.8 mmol/L (3.5-5.1)
[2016-11-06 12:27] VITALS: BP 96/61
[2016-11-06 12:32] LABS: LYMPHOCYTES 6 % (15-50); MONOCYTES 6 % (2-11); NEUTROPHILS 86 % (40-80)
[2016-11-06 12:33] LABS: PLATELET MORPHOLOGY NORMAL PLT MORPH
[2016-11-06 12:34] LABS: POLYCHROMASIA OCC
[2016-11-06 12:40] LABS: PLATELET ESTIMATE INCREASED
[2016-11-06 14:15] VITALS: Ht 177.8 cm; Wt 72.6 kg
[2016-11-06 16:05] VITALS: BP 100/67
--- NOTE | 2016-11-06 17:30 | NUR ---
ACEVEDO CATHETER REMOVED AFTER BALLOON REMOVED. FULLY INTAT.
--- NOTE | 2016-11-06 17:35 | NUR ---
PATIENT GIVEN DULCOLAX SUPP AFTER UNSUCESSFUL ATTEMPT TO HAVE BM.
[2016-11-06 19:00] VITALS: BP 103/66
--- NOTE | 2016-11-07 03:35 | NUR ---
PATIENT HAS BEEN RESTING IN BED ALL NIGHT. IS ALERT AND ORIENTED X4. IS GETTING UP BY HIMSELF TO GO TO THE BATHROOM. PLACED TELEMTRY ON PATIENT. HAS ASKED FOR SOMETHING FOR PAIN TWICE AND I HAVE ADMINISTERED PER ORDERS. INTRUCTED TO CALL IF NEEDED ANYTHING. PATIENT VERBALIZED UNDERSTANDING. BED LOW, LOCKED, CALL LIGHT IN REACH.
[2016-11-07 04:00] VITALS: BP 103/69
[2016-11-07 05:38] LABS: BASOPHILS 0.3 % (0.0-2.0); EOSINOPHILS 1.3 % (0-7); HEMATOCRIT 25.4 % (42.0-54.0); HEMOGLOBIN 8.7 g/dL (13.5-17.5); IMMATURE GRANULOCYTES 0.9 % (0-5); LYMPHOCYTES 14.6 % (15-50); MCH 29.8 pg (26.0-34.0); MCHC 34.3 g/dL (31.0-37.0); MEAN PLATELET VOLUME 8.7 fL (7.4-10.4); MONOCYTES 10.6 % (2-11); NEUTROPHILS 72.3 % (40-80); RBC 2.92 10x6/uL (4.20-6.10); RDW 12.6 % (11.5-14.5)
[2016-11-07 05:43] LABS: WBC 19.3 10x3/uL (4.8-10.8)
[2016-11-07 05:44] LABS: PLATELET COUNT 1005 10x3/uL (130-400)
--- NOTE | 2016-11-07 06:17 | NUR ---
PATIENT IS RESTING IN BED. ADMINISTERED PAIN PILL EARLIER AND IS NOW OUT OF PAIN. DENIED NEEDS AT THIS TIME. INSTUCTED TO CALL IF NEEDED ANYTHING. PATIENT VERBALIZED UNDERSTANDING. BED LOW, LOCKED, CALL LIGHT IN REACH.
[2016-11-07 06:20] LABS: ALBUMIN 2.1 g/dL (3.4-5.0); ALKALINE PHOSPHATASE 123 U/L (46-116); ALT (SGPT) 24 U/L (10-68); BILIRUBIN - TOTAL 0.13 mg/dL (0.2-1.3); CALCIUM 8.2 mg/dL (8.5-10.1); CHLORIDE - SERUM 105 mmol/L (98-107); CREATININE - SERUM 0.7 mg/dL (0.6-1.3); GLUCOSE 161 mg/dL (74-106); POTASSIUM - SERUM 4.1 mmol/L (3.5-5.1); PROTEIN - SERUM 5.1 g/dL (6.4-8.2); SODIUM 140 mmol/L (136-145); eGFR NON AFRICAN AMERICAN > 90 mL/min (90-120)
[2016-11-07 06:21] LABS: CALC OSMOLALITY 278 mosm/kg (275-300); UREA NITROGEN 5 mg/dL (7-18)
--- NOTE | 2016-11-07 07:00 | NUR ---
REPORT RECIEVED ASSUMED CARE. PATIENT IN BED WITH IV INTACT. NO COMPLAINTS AT THIS TIME. CALL LIGHT WITHIN REACH.
--- NOTE | 2016-11-07 08:00 | NUR ---
PATIENT ASSESSMENT COMPLETE VS STABLE. NO COMPLAINTS AT THIS TIME. TOVA DRAIN DRAIN WHITE/GRIMALDO DRAINAGE. INCISION CDI. CALL LIGHT WITHIN REACH. REFUSES BSCDS.
[2016-11-07 08:13] VITALS: BP 100/66
--- NOTE | 2016-11-07 11:30 | NUR ---
PATIENT WANTING TO BE DISCHARGED. EXPLAINED TO PATIENT HE HAD TO WAIT UNTIL DR. TOMLINSON MADE ROUNDS. PATIENT VERBALIZED UNDERSTANDING. STATED DR. HASTINGS ALREADY TOLD HIM HE COULD BE DC'D. EXPLAINED THAT DR. TOMLINSON WAS MEDICAL DR AND HAD TO BE OK WITH HIM GOING HOME TOO. VERBALIZED UNDERSTANDING.
[2016-11-07 12:18] VITALS: BP 115/68
--- NOTE | 2016-11-07 13:24 | NUR ---
PATIENT LEAVING AMA. CALLED MARIE GARCIA TO NOTIFY, WELL FINISHER CARD TENDER. DR. HASTINGS ALSO NOTIFIED. PATIENTS IV X 2 REMOVED WITH CATH TIPS INTACT. NO QUESTIONS AT THIS TIME. CALL LIGHT WITHIN REACH.
--- NOTE | 2016-11-07 15:43 | NUR ---
PATIENT LEFT AMA
== END 2016-11-07 14:15 | disposition left against medical advice (07) | DRG 862 ==
LOC: D.ER 11:38 → D.MS 15:56
PROVIDERS: Emergency Medicine; Family Medicine Adult Medicine; ADMIT Emergency Medicine
DX: T81.4XXA Infection following a procedure, initial encounter (principal); J18.1 Lobar pneumonia, unspecified organism; K91.89 Other postprocedural complications and disorders of digestive system; L03.311 Cellulitis of abdominal wall; C25.9 Malignant neoplasm of pancreas, unspecified; D62 Acute posthemorrhagic anemia; F17.203 Nicotine dependence unspecified, with withdrawal; D47.3 Essential (hemorrhagic) thrombocythemia; R73.9 Hyperglycemia, unspecified; Y83.8 Other surgical procedures as the cause of abnormal reaction of the patient, or of later complication, without mention of misadventure at the time of the procedure

== ENCOUNTER 2017-01-09 06:07 | Day surgery (SDC) | payer BC ==
[~2017-01-09] VITALS: Ht 177.8 cm; Wt 68.0 kg
--- NOTE | ~2017-01-09 | OP ---
PATIENT NAME: GILDARDO VASQUEZ JR MEDICAL RECORD: [id number] :71 LOCATION:D.OPS ADMISSION DATE: SURGEON: DAVIDE HASTINGS MD DATE OF OPERATION: 01/09/2017 PREOPERATIVE DIAGNOSES: 1. Metastatic pancreatic cancer. 2. Tobacco dependence syndrome. POSTOPERATIVE DIAGNOSES: 1. Metastatic pancreatic cancer. 2. Tobacco dependence syndrome. PROCEDURE: Right subclavian vein PowerPort placement with fluoroscopic interpretation. SURGEON: Davide Hastings MD REPORT OF PROCEDURE: The patient's right chest was prepped and draped in sterile fashion. A needle was used to cannulate the right subclavian vein. The guidewire was advanced with ease. Fluoro was used to note that the wire was in good position in the venous system. A skin incision was made on the right superior and lateral chest. Electrocautery was used to dissect through the subcutaneous tissue down to the pectoral fascia. A subcutaneous pouch was made overlying this fascia. The catheter was then tunneled between this pouch and the wire exit site. The port was sutured to the pectoral fascia using interrupted 0 Prolenes times 2. The catheter was then cut with a beveled tip. The dilator trocar device was placed over the wire and the wire and dilator were removed. The catheter tip was advanced through this trocar with ease and the trocar was removed. The catheter tip resting in good position in the right atrial superior vena caval junction. The catheter aspirated nonpulsatile dark blood and flushed easily with heparinized saline. The subcutaneous tissues were reapproximated with interrupted 3-0 Vicryls and the skin was closed with running subcutaneous 5-0 Monocryl. We then accessed the port and placed a dressing over the wound. COMPLICATIONS: None. CONDITION: Stable. ANESTHESIA: General endotracheal. BLOOD LOSS: Minimal. TRANSINT:[id number] Voice Confirmation ID: [id number] DOCUMENT ID: [id number] DAVIDE HASTINGS MD CC: MICHAEL ALLEN MD and RAO CUNNINGHAM MD [id number] DICTATION DATE: 01/09/17939 ROBOTIC MAINTENANCE TECHNICIAN: 01/09/17 1712 [facility] 01/09/17 [place] [id number]
[~2017-01-09 06:07] MED LIST changes: +CREON DR 24,001 EACH PO; +DILAUDID2 MG PO; +PEPCID40 MG PO; +PHENERGAN25 M1 PO
[2017-01-09] MEDS ORDERED: CREON DR 24,001 EACH PO (06:57)
[2017-01-09 06:59] VITALS: BP 106/79; Ht 177.8 cm; Wt 68.0 kg
[2017-01-09] MEDS ORDERED: ZOFRAN4 MG PO (06:59)
[2017-01-09 07:00] LABS: BASOPHILS 0.3 % (0-2); HEMOGLOBIN 15.5 g/dL (13.5-17.5); IMMATURE GRANULOCYTES 0.2 % (0-5); LYMPHOCYTES 21.8 % (15-50); MCH 28.3 pg (26.0-34.0); MCV 85.9 fL (80.0-100.0); MEAN PLATELET VOLUME 8.9 fL (7.4-10.4); MONOCYTES 8.4 % (2-11); NEUTROPHILS 64.3 % (40-80); RBC 5.47 10x6/uL (4.20-6.10); RDW 14.2 % (11.5-14.5); WBC 12.9 10x3/uL (4.8-10.8)
[2017-01-09 07:03] LABS: PLATELET COUNT 512 10x3/uL (130-400)
[2017-01-09 07:11] LABS: CALC OSMOLALITY 282 mosm/kg (275-300); CALCIUM 9.4 mg/dL (8.5-10.1); CARBON DIOXIDE 33.3 mmol/L (21.0-32.0); CHLORIDE - SERUM 102 mmol/L (98-107); GLUCOSE 174 mg/dL (74-106); POTASSIUM - SERUM 4.2 mmol/L (3.5-5.1); SODIUM 140 mmol/L (136-145); UREA NITROGEN 12 mg/dL (7-18); eGFR NON AFRICAN AMERICAN 86 mL/min (90-120)
[2017-01-09 07:29] LABS: INR 1.07 (0.85-1.17); PROTIME 13.6 SECONDS (11.6-15.0)
== END 2017-01-09 12:35 | disposition home or self-care (01) ==
LOC: D.OPS 06:07 → D.PAN 08:30 → D.OPS 12:35
PROVIDERS: Anesthesiology; Surgery
DX: C25.9 Malignant neoplasm of pancreas, unspecified (principal); F17.200 Nicotine dependence, unspecified, uncomplicated; C79.9 Secondary malignant neoplasm of unspecified site; K86.89 Other specified diseases of pancreas; Z01.812 Encounter for preprocedural laboratory examination

== ENCOUNTER 2017-02-13 12:38 | Emergency (ER) | payer BC ==
[2017-01-09 06:59] VITALS: BMI 21.5
--- NOTE | ~2017-02-13 | CN ---
PATIENT NAME:GILDARDO VASQUEZ JR MEDICAL RECORD: [id number] : 71 LOCATION:[facility] ADMIT DATE: ACCOUNT: [id number] CONSULTING PHYSICIAN: DUC WILSON MD REFERRING PHYSICIAN: CHELSEA SMITH MD DATE OF CONSULTATION: 02/13/2017 CHIEF COMPLAINT: Abdominal pain. HISTORY OF PRESENT ILLNESS: I was asked to see the patient in consultation. The patient was initially evaluated by Dr. Smith. The patient has undergone a Whipple procedure by Dr. Hastings. He comes in today with abdominal pain. A family member states that he has had a recent 60-pound weight loss. He has undergone chemotherapy. His abdomen is not distended. He has had some nausea as well as some occasional vomiting. I personally reviewed the CT images. I personally reviewed the CT report. I think that he does not have a bowel obstruction. He appears to be very constipated. I believe that there is fecalization of the small bowel as well. I recommended that he get an entire bottle of MiraLax and drink the whole thing. He has some nausea medicine at home, which should aid him in drinking the MiraLax. He may need to have a feeding tube placed sometime in the future due to the significant weight loss. He and his family member appear to be very disappointed with the answers that I had for them this evening. They wanted him to have a better appetite and put on weight. I told him that that is not something that I was going to be able to accomplish this evening. He has had some intermittent chest numbness. He says he is unsteady on his feet. No night sweats. He has had weight loss. He has early satiety as well. SOCIAL HISTORY: He is a smoker. I have advised him to quit smoking. REVIEW OF SYSTEMS: Negative other than as is described above. PAST MEDICAL AND SURGICAL HISTORY: Anemia, pancreatic cancer, Whipple procedure, left pleural effusion, syncope, pneumonia. ALLERGIES: No known drug allergies. HOME MEDICATIONS: Partial list of home medicine includes diazepam, famotidine, citalopram, Protonix, oxycodone. PHYSICAL EXAMINATION: GENERAL: The patient appears acutely ill. Also appears chronically ill. VITAL SIGNS: Reviewed. HEAD: External ears appear normal. EYES: Extraocular movements are intact. NECK: Trachea is midline. CHEST: No intercostal retractions. PULMONARY: Nonlabored, no stridor. ABDOMEN: He has an indurated area in the left side of the abdomen, which likely represents the scarring from a jejunostomy tube site. Also, well-healed scar in the midline. EXTREMITIES: No peripheral cyanosis. INTEGUMENT: No ulcerations. A healed scar in the midline. BACK: Mild thoracic kyphosis. CONSULT REPORT [id number] GILDARDO VASQUEZ JR LYMPHATICS: No lymphangitic streaking of the exposed extremities. IMPRESSION: Abdominal pain, likely due do so severe constipation. I think that it is less likely that he has a partial small-bowel obstruction. PLAN: As described above. I will see the patient on a p.r.n. basis. I will discuss this case with Dr. Hastings when I see him tomorrow. TRANSINT:[id number] Voice Confirmation ID: [id number] DOCUMENT ID: [id number] DUC WILSON MD CC: MICHAEL ALLEN MD, JUSTINE HASTINGS MD and OLAF SMITH MD [id number] DICTATION DATE: 02/13/171901 CAFE ASSOCIATE: 02/14/17 0243 [facility] 02/13/17 [facility] [address] [place] [address]
[~2017-02-13 12:38] MED LIST changes: +ZOFRAN4 MG PO
[2017-02-13 13:03] LABS: BASOPHILS 0.5 % (0-2); EOSINOPHILS 0.2 % (0-7); HEMATOCRIT 44.5 % (42.0-54.0); HEMOGLOBIN 15.6 g/dL (13.5-17.5); IMMATURE GRANULOCYTES 0.2 % (0-5); LYMPHOCYTES 38.5 % (15-50); MCH 28.7 pg (26.0-34.0); MCHC 35.1 g/dL (31.0-37.0); MEAN PLATELET VOLUME 8.4 fL (7.4-10.4); MONOCYTES 13.4 % (2-11); NEUTROPHILS 47.2 % (40-80); RBC 5.43 10x6/uL (4.20-6.10); WBC 6.6 10x3/uL (4.8-10.8)
[2017-02-13 13:04] LABS: PLATELET COUNT 626 10x3/uL (130-400)
[2017-02-13 13:18] LABS: ALKALINE PHOSPHATASE 69 U/L (46-116); ALT (SGPT) 28 U/L (10-68); BILIRUBIN - TOTAL 0.35 mg/dL (0.2-1.3); CALC OSMOLALITY 277 mosm/kg (275-300); CALCIUM 9.8 mg/dL (8.5-10.1); CARBON DIOXIDE 27.9 mmol/L (21.0-32.0); CHLORIDE - SERUM 97 mmol/L (98-107); GLUCOSE 161 mg/dL (74-106); POTASSIUM - SERUM 3.7 mmol/L (3.5-5.1); PROTEIN - SERUM 7.8 g/dL (6.4-8.2); SODIUM 138 mmol/L (136-145); UREA NITROGEN 9 mg/dL (7-18); eGFR NON AFRICAN AMERICAN 86 mL/min (90-120)
[2017-02-13 13:26] LABS: TROPONIN-I < 0.017 ng/mL (0.000-0.060)
[2017-02-13 14:11] LABS: APPEARANCE HAZY (CLEAR); BILIRUBIN NEGATIVE (NEGATIVE); COLOR YELLOW (YELLOW); GLUCOSE 100 mg/dL (NEGATIVE); KETONE MODERATE mg/dL (NEGATIVE); LEUKOCYTE ESTERASE NEGATIVE (NEGATIVE); NITRITE NEGATIVE (NEGATIVE); PROTEIN NEGATIVE (NEGATIVE); UROBILINOGEN NORMAL (NORMAL)
== END 2017-02-13 19:21 | disposition home or self-care (01) ==
LOC: D.ER 12:38
PROVIDERS: Emergency Medicine
DX: R10.9 Unspecified abdominal pain (principal); K59.00 Constipation, unspecified; F17.200 Nicotine dependence, unspecified, uncomplicated

== ENCOUNTER 2017-02-16 23:57 | Inpatient (IN) | payer BC ==
[~2017-02-16] VITALS: Ht 177.8 cm; Wt 63.4 kg
[2017-02-17 00:30] LABS: BASOPHILS 0.2 % (0-2); EOSINOPHILS 0.6 % (0-7); HEMATOCRIT 43.5 % (42.0-54.0); HEMOGLOBIN 15.1 g/dL (13.5-17.5); IMMATURE GRANULOCYTES 0.2 % (0-5); LYMPHOCYTES 15.9 % (15-50); MCH 28.3 pg (26.0-34.0); MCHC 34.7 g/dL (31.0-37.0); MCV 81.6 fL (80.0-100.0); MEAN PLATELET VOLUME 8.6 fL (7.4-10.4); MONOCYTES 14.1 % (2-11); RBC 5.33 10x6/uL (4.20-6.10); RDW 16.7 % (11.5-14.5); WBC 12.9 10x3/uL (4.8-10.8)
[2017-02-17 00:36] LABS: PLATELET COUNT 485 10x3/uL (130-400)
[2017-02-17 00:50] LABS: ALBUMIN 3.7 g/dL (3.4-5.0); ALKALINE PHOSPHATASE 58 U/L (46-116); ALT (SGPT) 21 U/L (10-68); AMYLASE - SERUM 15 U/L (25-115); CALC OSMOLALITY 274 mosm/kg (275-300); CALCIUM 9.1 mg/dL (8.5-10.1); CHLORIDE - SERUM 99 mmol/L (98-107); CREATININE - SERUM 0.9 mg/dL (0.6-1.3); GLUCOSE 130 mg/dL (74-106); LIPASE 50 U/L (73-393); POTASSIUM - SERUM 4.1 mmol/L (3.5-5.1); SODIUM 137 mmol/L (136-145); UREA NITROGEN 9 mg/dL (7-18); eGFR NON AFRICAN AMERICAN > 90 mL/min (90-120)
[2017-02-17 02:07] LABS: APPEARANCE CLEAR (CLEAR); BILIRUBIN 2+ (NEGATIVE); COLOR DK YELLOW (YELLOW); GLUCOSE NEGATIVE (NEGATIVE); KETONE LARGE mg/dL (NEGATIVE); LEUKOCYTE ESTERASE NEGATIVE (NEGATIVE); NITRITE NEGATIVE (NEGATIVE); PROTEIN NEGATIVE (NEGATIVE); SPECIFIC GRAVITY 1.025 (1.005-1.020); UROBILINOGEN NORMAL (NORMAL)
[2017-02-17 03:21] VITALS: BP 104/82; BMI 19.4
[2017-02-17 04:00] VITALS: BP 104/82; BP 104/83
[2017-02-17 10:08] VITALS: BP 113/81
--- NOTE | 2017-02-17 11:03 | NUR ---
PATIENT VERBALIZED ANXIETY TOWARD THE CT MACHINE. ADMINISTERED VALIUM. PATIENT RATED HIS PAIN A 7/10. ADMINISTERED DILAUDID PO.
[2017-02-17 13:13] VITALS: BP 109/67
[2017-02-17 13:20] VITALS: Ht 177.8 cm; Wt 63.4 kg
--- NOTE | 2017-02-17 14:20 | NUR ---
SET UP VP MARKETING. PATIENT'S MOM AT BEDSIDE. BOTH DENY NEEDS AT THIS TIME.
--- NOTE | 2017-02-17 15:30 | NUR ---
PATIENT RESTING QUIETLY WITH EYES CLOSED.
[2017-02-17 17:37] VITALS: BP 133/81
[2017-02-17 20:00] VITALS: BP 130/81
--- NOTE | 2017-02-17 23:04 | NUR ---
2300-bird keeper note-resting quietly with eyes closed. resp easy and unlabored. bowel sounds hypoactive. call light in reach
[2017-02-18 00:35] VITALS: BP 135/78
[2017-02-18 04:00] VITALS: BP 117/85
[2017-02-18 06:19] LABS: BASOPHILS 0.2 % (0-2); EOSINOPHILS 1.2 % (0-7); HEMATOCRIT 41.8 % (42.0-54.0); HEMOGLOBIN 14.2 g/dL (13.5-17.5); IMMATURE GRANULOCYTES 0.2 % (0-5); LYMPHOCYTES 18.8 % (15-50); MCH 27.8 pg (26.0-34.0); MEAN PLATELET VOLUME 8.9 fL (7.4-10.4); MONOCYTES 13.6 % (2-11); PLATELET COUNT 450 10x3/uL (130-400); RDW 16.7 % (11.5-14.5); WBC 10.8 10x3/uL (4.8-10.8)
[2017-02-18 06:48] LABS: ALBUMIN 3.2 g/dL (3.4-5.0); ALKALINE PHOSPHATASE 53 U/L (46-116); ALT (SGPT) 22 U/L (10-68); BILIRUBIN - TOTAL 0.37 mg/dL (0.2-1.3); CALC OSMOLALITY 271 mosm/kg (275-300); CALCIUM 8.9 mg/dL (8.5-10.1); CARBON DIOXIDE 27.7 mmol/L (21.0-32.0); CHLORIDE - SERUM 101 mmol/L (98-107); CREATININE - SERUM 0.6 mg/dL (0.6-1.3); GLUCOSE 137 mg/dL (74-106); POTASSIUM - SERUM 4.1 mmol/L (3.5-5.1); PROTEIN - SERUM 6.4 g/dL (6.4-8.2); SODIUM 136 mmol/L (136-145); UREA NITROGEN 7 mg/dL (7-18); eGFR NON AFRICAN AMERICAN > 90 mL/min (90-120)
[2017-02-18 08:42] VITALS: BP 127/84
[2017-02-18 11:36] VITALS: BP 118/88
[2017-02-18 15:41] VITALS: BP 148/79
[2017-02-18 20:00] VITALS: BP 138/95
--- NOTE | 2017-02-18 20:00 | NUR ---
ASSESSMENT PER FLOWSHEET. IV PATENT LEFT AC OF NS AT 50CC'S/HR SITE CLEAR. PROCAL INFUSING AT 50CC'S/HR. THEATRE ARTS PROFESSOR OF DILAUDID IN USE WITH SETTINGS AT 0.2MG Q10MIN W/4MG Q4HR L/O. REFUSES SCD'S FAMILY MEMBERS AT BEDSIDE. PORTABLE ABDOMINAL XRAY DONE.
--- NOTE | 2017-02-18 21:00 | NUR ---
MEDS GIVEN PER MAR.
--- NOTE | 2017-02-18 22:25 | NUR ---
C/O ANXIETY. VALIUM 5MG PO TAB ONE GIVEN FOR ANXIETY.
[2017-02-19] VITALS: BP 133/88
--- NOTE | 2017-02-19 | NUR ---
RESTING QUIETLY AT THIS TIME.SR UP X2 CALL LIGHT WITHIN REACH.
[2017-02-19 04:00] VITALS: BP 130/91
[2017-02-19 06:42] LABS: BASOPHILS 0.1 % (0-2); EOSINOPHILS 0.9 % (0-7); HEMATOCRIT 42.3 % (42.0-54.0); HEMOGLOBIN 14.3 g/dL (13.5-17.5); IMMATURE GRANULOCYTES 0.1 % (0-5); LYMPHOCYTES 14.3 % (15-50); MCH 27.9 pg (26.0-34.0); MCHC 33.8 g/dL (31.0-37.0); MCV 82.5 fL (80.0-100.0); MEAN PLATELET VOLUME 9.4 fL (7.4-10.4); MONOCYTES 13.8 % (2-11); NEUTROPHILS 70.8 % (40-80); PLATELET COUNT 425 10x3/uL (130-400); RBC 5.13 10x6/uL (4.20-6.10); RDW 16.8 % (11.5-14.5); WBC 11.7 10x3/uL (4.8-10.8)
[2017-02-19 07:07] LABS: ALBUMIN 3.4 g/dL (3.4-5.0); ALKALINE PHOSPHATASE 57 U/L (46-116); CALC OSMOLALITY 267 mosm/kg (275-300); CALCIUM 8.8 mg/dL (8.5-10.1); CARBON DIOXIDE 26.3 mmol/L (21.0-32.0); CHLORIDE - SERUM 100 mmol/L (98-107); CREATININE - SERUM 0.5 mg/dL (0.6-1.3); GLUCOSE 141 mg/dL (74-106); POTASSIUM - SERUM 3.8 mmol/L (3.5-5.1); PROTEIN - SERUM 6.7 g/dL (6.4-8.2); SODIUM 134 mmol/L (136-145); UREA NITROGEN 6 mg/dL (7-18); eGFR NON AFRICAN AMERICAN > 90 mL/min (90-120)
[2017-02-19 07:08] LABS: ALT (SGPT) 15 U/L (10-68)
--- NOTE | 2017-02-19 07:15 | NUR ---
AWAKE AND ALERT AT THIS TIME. BEHAVIORAL HEALTH THERAPIST IN USE FOR PAIN CONTROL. ASSESSMENT PERFORMED PER FLOWSHEET. PAIN 7/10 ABDOMINALLY. REMAINS NPO AT THIS TIME. CALL LIGHT IN REACH, WILL CONTINUE WITH PLAN OF CARE.
[2017-02-19 08:00] VITALS: BP 128/91
--- NOTE | 2017-02-19 09:53 | NUR ---
SCHEDULED MEDICATIONS ADMINISTERED AT THIS TIME. FAMILY AT BEDSIDE. PT REMAINS NPO AT THIS TIME. CALL LIGHT IN REACH, WILL CONTINUE WITH PLAN OF CARE.
[2017-02-19 11:35] VITALS: BP 120/97
--- NOTE | 2017-02-19 12:35 | NUR ---
SUPERVISOR HOSPITALITY HOUSE MAX LIMIT REACHED AT THIS TIME. PT'S PAIN REMAINS 7/10. WILL NOTIFY DR REGARDING PAIN LEVEL REMAINING 7/10. CALL LIGHT IN REACH, WILL CONTINUE WITH PLAN OF CARE.
--- NOTE | 2017-02-19 15:10 | NUR ---
NUTRITION MONITORING & EVAL CHART REVIEWED, PT CONTINUES PROCALAMINE @ 50 CC/HR. CLEAR LIQUID DIET. WILL MONITOR DIET ADVANCMENT. RD FOLLOWING
[2017-02-19 15:24] VITALS: BP 124/92
--- NOTE | 2017-02-19 16:56 | NUR ---
PRN VALIUM ADMINISTERED FOR ANXIETY PER ORDER.
--- NOTE | 2017-02-19 19:35 | NUR ---
ASSESSMENT COMPLETED, NO ACUTE DISTRESS NOTED, FAMILY IN ROOM, CL IN REACH, WILL MONITOR
[2017-02-19 20:00] VITALS: BP 136/105
--- NOTE | 2017-02-19 21:35 | NUR ---
SITTING UP IN BED, DENIES NEEDS, FALL PRECAUTIONS IN PLACE, CL IN REACH
[2017-02-20 06:47] LABS: BASOPHILS 0.2 % (0-2); EOSINOPHILS 1.1 % (0-7); HEMATOCRIT 41.7 % (42.0-54.0); HEMOGLOBIN 14.5 g/dL (13.5-17.5); IMMATURE GRANULOCYTES 0.2 % (0-5); LYMPHOCYTES 14.2 % (15-50); MCH 28.7 pg (26.0-34.0); MCHC 34.8 g/dL (31.0-37.0); MCV 82.6 fL (80.0-100.0); MEAN PLATELET VOLUME 8.9 fL (7.4-10.4); MONOCYTES 11.5 % (2-11); NEUTROPHILS 72.8 % (40-80); PLATELET COUNT 411 10x3/uL (130-400); RBC 5.05 10x6/uL (4.20-6.10); RDW 17.1 % (11.5-14.5); WBC 12.7 10x3/uL (4.8-10.8)
[2017-02-20 07:05] LABS: ALBUMIN 3.3 g/dL (3.4-5.0); ALKALINE PHOSPHATASE 53 U/L (46-116); ALT (SGPT) 16 U/L (10-68); CALC OSMOLALITY 270 mosm/kg (275-300); CALCIUM 8.9 mg/dL (8.5-10.1); CARBON DIOXIDE 27.9 mmol/L (21.0-32.0); CHLORIDE - SERUM 100 mmol/L (98-107); CREATININE - SERUM 0.6 mg/dL (0.6-1.3); GLUCOSE 137 mg/dL (74-106); POTASSIUM - SERUM 4.1 mmol/L (3.5-5.1); PROTEIN - SERUM 6.6 g/dL (6.4-8.2); SODIUM 136 mmol/L (136-145); UREA NITROGEN 5 mg/dL (7-18); eGFR NON AFRICAN AMERICAN > 90 mL/min (90-120)
[2017-02-20 08:17] VITALS: BP 132/100
[2017-02-20 08:17] LABS: FOLATE (FOLIC ACID) - SERUM 2.9 ng/mL (>3.0)
--- NOTE | 2017-02-20 08:25 | NUR ---
ASSESSMENT PER FLOW SHEET.PT WITHOUT DISTRESS.STATES PAIN 8/10 SCALE TO ABDOMEN.INSTRUCTED SLITTER SCORER CUT OFF OPERATOR USE.DR CUNNINGHAM AT BEDSIDE TO SEE PT.MONITOR FOR NEEDS.CALL LIGHT IN REACH
--- NOTE | 2017-02-20 10:04 | PN ---
PATIENT:GILDARDO VASQUEZ JR MEDICAL RECORD: [id number] LOCATION:D.[id number] ADMISSION DATE: 02/17/17 PROGRESS NOTE DATE OF SERVICE: 02/18/2017 CHIEF COMPLAINT: Abdominal pain. HISTORY OF PRESENT ILLNESS: The patient has had recurrent abdominal pain since undergoing a Whipple procedure. He was seen in the Emergency Room earlier in the week. I am not sure we have much to offer him with regard to improving his abdominal pain. He states that his nausea has already improved since his admission on the . This is a progress note addendum. The typed portion of the progress note, please see the chart. This would include the past medical and surgical history, allergies, social history, as well as home medications. His symptoms are constant. Palpation aggravates. Nothing alleviates. His symptoms are difficult to characterize. REVIEW OF SYSTEMS: As described above, otherwise negative. PHYSICAL EXAMINATION: GENERAL: The patient does not appear acutely ill. He does appear chronically ill. VITAL SIGNS: Reviewed. HEAD: External ears appear normal. EYES: Extraocular movements are intact. NECK: Trachea is midline. CHEST: No intercostal retractions. PULMONARY: Nonlabored, no stridor. ABDOMEN: Tenderness within the midline scar. There is indurated area at the cephalad portion of the scar as well as the left lower quadrant. INTEGUMENT: No rash, no ulcerations. PSYCHIATRIC: Normal effect. NEUROLOGIC: Nonfocal, no lethargy. The patient answers questions appropriately, moves all extremities well. BACK: Mild thoracic kyphosis. LYMPHATICS: No lymphangitic streaking of the exposed extremities. IMPRESSION: Abdominal pain of uncertain etiology. I will review his CT images. PLAN: As described above. TRANSINT:[id number] Voice Confirmation ID: [id number] DOCUMENT ID: [id number] PROGRESS NOTE [id number] VASQUEZKARTHIK McguireGILDARDODUC CHAVEZ JR, MD at 1004 CC: [id number] DICTATION DATE: 02/18/17 1603 CONTROL DIRECTOR: 02/18/17 2204 ADM IN [facility] [address] [place] [address]
--- NOTE | 2017-02-20 10:12 | NUR ---
Patient Name: GILDARDO VASQUEZ Admission Status: ER Accout number: [id number] Admission Date: 02-17-2017 : 1975 Admission Diagnosis: Attending: DANITZA Current LOS: 3 Anticipated DC Date: 02-23-2017 Planned Disposition: Home Primary Insurance: [employer] O Discharge Planning Comments: CM MET WITH PATIENT AND MOM (CHANDLER) REGARDING D/C NEEDS AND PLANS. MOTHER STATED PATIENT LIVED WITH HER AND THERE ARE 2 STEPS W/RAILS TO ENTER HOME AND NO STAIRS INSIDE. PATIENT STATED HIS MOTHER WOULD DRIVE HIM HOME AT DISCHARGE. PATIENT IS INDEPENDENT WITH HIS CARE AND HAS A WALKER AT HOME IF NEEDED. PATIENTS PCP IS DR. ALLEN AND USES [facility]. PATIENT HAS NOT HAD HOME HEALTH IN LAST FEW MONTHS AND DOES NOT THINK HE WILL NEED IT. CM WILL CONTINUE TO FOLLOW PATIENT WITH D/C NEEDS AND PLANS. PCP DR. ALLEN [facility]- [phone] CHANDLER (MOM) [phone] Combination Welder: Eloisa Castano Is the patient Alert and Oriented? Yes 0 * How many steps to enter\exit or inside your home? 2 W/RAILS 0 * PCP DR. ALLEN 0 * Pharmacy [facility] 0 * Preadmission Environment Home with Family 0 * ADLs Independent 0 * Equipment Walker 0 * List name and contact numbers for known caregivers / representatives who currently or will assist patient after discharge: CHANDLER VASQUEZ (MOM) [phone] * Community resources currently utilized None 0 * Additional services required to return to the preadmission environment? Yes 0 * Can the patient safely return to the preadmission environment? Yes 0 * Has this patient been hospitalized within the prior 30 days at any hospital? No 0 Grand Total: 0
[2017-02-20 12:32] VITALS: BP 139/80
[2017-02-20 16:03] VITALS: BP 132/74
--- NOTE | 2017-02-20 18:56 | NUR ---
REMAINS WITHOUT NEEDS,WIHTOUT CHANGE FROM INITIAL ASSESSMENT.CONT PLAN OF CARE
--- NOTE | 2017-02-20 19:25 | NUR ---
ASSESSMENT COMPLETED, NO ACUTE DISTRESS NOTED, DENIES NEEDS AT THIS TIME, FALL PRECAUTIONS IN PLACE, CL IN REACH, WILL MONITOR
[2017-02-20 20:00] VITALS: BP 137/93
--- NOTE | 2017-02-20 23:41 | NUR ---
RESTING WITH EYES CLOSED, RESP WITH EASE, NO DISTRESS NOTED, SAFETY MEASURES IN PLACE, CL IN REACH
[2017-02-21 04:00] VITALS: BP 132/88
[2017-02-21 06:43] LABS: ALBUMIN 3.3 g/dL (3.4-5.0); ALKALINE PHOSPHATASE 59 U/L (46-116); ALT (SGPT) 14 U/L (10-68); CALC OSMOLALITY 268 mosm/kg (275-300); CALCIUM 8.9 mg/dL (8.5-10.1); CARBON DIOXIDE 26.4 mmol/L (21.0-32.0); CHLORIDE - SERUM 99 mmol/L (98-107); CREATININE - SERUM 0.6 mg/dL (0.6-1.3); GLUCOSE 135 mg/dL (74-106); POTASSIUM - SERUM 3.9 mmol/L (3.5-5.1); PROTEIN - SERUM 6.8 g/dL (6.4-8.2); SODIUM 135 mmol/L (136-145); UREA NITROGEN 5 mg/dL (7-18); eGFR NON AFRICAN AMERICAN > 90 mL/min (90-120)
[2017-02-21 06:47] LABS: BASOPHILS 0.2 % (0-2); HEMOGLOBIN 14.2 g/dL (13.5-17.5); IMMATURE GRANULOCYTES 0.2 % (0-5); LYMPHOCYTES 15.2 % (15-50); MCH 28.1 pg (26.0-34.0); MCHC 33.8 g/dL (31.0-37.0); MEAN PLATELET VOLUME 9.5 fL (7.4-10.4); MONOCYTES 10.1 % (2-11); NEUTROPHILS 73.3 % (40-80); PLATELET COUNT 464 10x3/uL (130-400); RBC 5.06 10x6/uL (4.20-6.10); RDW 17.5 % (11.5-14.5); WBC 13.2 10x3/uL (4.8-10.8)
--- NOTE | 2017-02-21 07:45 | NUR ---
ASSESSMENT PER FLOW SHEET.PT WITHOUT DISTRESS.STATES PAIN IN ABDOMEN.INSTRUCTED DRYWALL APPLICATOR USE.CALL LIGHT IN REACH
[2017-02-21 09:04] VITALS: BP 138/84
[2017-02-21 12:44] VITALS: BP 143/93
[2017-02-21 16:30] VITALS: BP 129/91
--- NOTE | 2017-02-21 18:46 | NUR ---
FAMILY REMAINS IN ROOM.REMAINS WITHOUT NEEDS,WITHOUT CHNAGE.BREATHING BETTER AFTER [address] APROXIMATELY 1400 TODAY BY VERNON CHOI RN. SHE STATES WHILE I WAS OFF UNIT PT 02 DROPPED TO 87-88% ON ROOM AIR.CONT PLAN OF CARE
--- NOTE | 2017-02-21 18:49 | NUR ---
REMIANS WITHOUT NEEDS,WITHOUT CHANGE FROM INITIAL SHIFT ASSESSMENT.CONT PLAN OF CARE
[2017-02-21 19:00] VITALS: BP 136/98
[2017-02-22] VITALS: BP 114/86
--- NOTE | 2017-02-22 00:34 | NUR ---
EYES CLOSED RESPIRATIONS WITH EASE AND UNLABORED.
[2017-02-22 04:00] VITALS: BP 121/81
--- NOTE | 2017-02-22 04:44 | NUR ---
REC'D PATIENT LYING IN BED. ALERT AND ORIENTED X4. STATED PAIN WAS AT A 8/10 HAS INTERACTIVE PROJECT MANAGER PUMP FOR PAIN CONTROL. STATED HE DID NOT SLEEP LAST NIGHT AND HAS SOME SCHEDULED RESTORIL FOR BEDTIME. WILL ADMIN PER ORDERS. INSTRUCTED TO CALL IF NEEDED ANYTHING. BED LOW, LOCKED, CALL LIGHT IN REACH.
[2017-02-22 05:55] LABS: BASOPHILS 0.1 % (0-2); EOSINOPHILS 0.5 % (0-7); HEMATOCRIT 42.7 % (42.0-54.0); HEMOGLOBIN 14.5 g/dL (13.5-17.5); IMMATURE GRANULOCYTES 0.3 % (0-5); LYMPHOCYTES 7.7 % (15-50); MCH 28.2 pg (26.0-34.0); MCV 83.1 fL (80.0-100.0); MONOCYTES 8.7 % (2-11); NEUTROPHILS 82.7 % (40-80); PLATELET COUNT 527 10x3/uL (130-400); RBC 5.14 10x6/uL (4.20-6.10); RDW 17.5 % (11.5-14.5)
[2017-02-22 05:57] LABS: WBC 18.8 10x3/uL (4.8-10.8)
[2017-02-22 06:17] LABS: ALBUMIN 3.3 g/dL (3.4-5.0); ALKALINE PHOSPHATASE 63 U/L (46-116); ALT (SGPT) 12 U/L (10-68); CALC OSMOLALITY 274 mosm/kg (275-300); CALCIUM 8.9 mg/dL (8.5-10.1); CARBON DIOXIDE 29.8 mmol/L (21.0-32.0); CHLORIDE - SERUM 99 mmol/L (98-107); CREATININE - SERUM 0.6 mg/dL (0.6-1.3); GLUCOSE 158 mg/dL (74-106); POTASSIUM - SERUM 4.1 mmol/L (3.5-5.1); PROTEIN - SERUM 6.6 g/dL (6.4-8.2); SODIUM 137 mmol/L (136-145); eGFR NON AFRICAN AMERICAN > 90 mL/min (90-120)
[2017-02-22 06:18] LABS: UREA NITROGEN 8 mg/dL (7-18)
[2017-02-22 09:36] VITALS: BP 121/84
[2017-02-22 11:49] VITALS: BP 122/78
--- NOTE | 2017-02-22 15:35 | NUR ---
Nutrition Follow Up: Pt is eating 21% meal avg on a full liquid diet. Per chart review pt has pain with eating. +BM 02/21/17. Wt loss 2# since admit. Labs reviewed. Meds noted. Procalamine @ 125 ml/hr providing 735 kcal, 87 g protein. 20% Lipids 250 ml every 48 hours providing 250 kcal. Pt with poor po intake at this time. Rec continue current diet as tolerated. RD will continue to monitor pt progress.
[2017-02-22 20:00] VITALS: BP 125/91
[2017-02-23] VITALS (10 sets, daily range): BP systolic 116–145; BP diastolic 76–100
[2017-02-23 05:29] LABS: BASOPHILS 0.1 % (0-2); EOSINOPHILS 1.2 % (0-7); HEMATOCRIT 42.6 % (42.0-54.0); HEMOGLOBIN 14.5 g/dL (13.5-17.5); IMMATURE GRANULOCYTES 0.2 % (0-5); LYMPHOCYTES 11.2 % (15-50); MCH 28.1 pg (26.0-34.0); MCV 82.6 fL (80.0-100.0); MEAN PLATELET VOLUME 9.5 fL (7.4-10.4); MONOCYTES 12.3 % (2-11); PLATELET COUNT 537 10x3/uL (130-400); RBC 5.16 10x6/uL (4.20-6.10); RDW 17.3 % (11.5-14.5); WBC 14.7 10x3/uL (4.8-10.8)
[2017-02-23 05:57] LABS: ALBUMIN 3.4 g/dL (3.4-5.0); ALKALINE PHOSPHATASE 70 U/L (46-116); ALT (SGPT) 14 U/L (10-68); CALC OSMOLALITY 272 mosm/kg (275-300); CALCIUM 9.1 mg/dL (8.5-10.1); CARBON DIOXIDE 30.1 mmol/L (21.0-32.0); CHLORIDE - SERUM 98 mmol/L (98-107); CREATININE - SERUM 0.6 mg/dL (0.6-1.3); GLUCOSE 154 mg/dL (74-106); POTASSIUM - SERUM 4.1 mmol/L (3.5-5.1); SODIUM 136 mmol/L (136-145); UREA NITROGEN 6 mg/dL (7-18); eGFR NON AFRICAN AMERICAN > 90 mL/min (90-120)
[2017-02-23 08:05] LABS: APTT 30.7 SECONDS (22.8-39.4); INR 1.01 (0.85-1.17); PROTIME 13.2 SECONDS (11.6-15.0)
--- NOTE | 2017-02-23 12:44 | NUR ---
PATIENT BACK FROM BIOPSY. AWAKE AND ALERT.
[2017-02-23 14:46] LABS: APPEARANCE CLEAR (CLEAR); BILIRUBIN NEGATIVE (NEGATIVE); COLOR YELLOW (YELLOW); GLUCOSE 250 mg/dL (NEGATIVE); KETONE NEGATIVE (NEGATIVE); LEUKOCYTE ESTERASE NEGATIVE (NEGATIVE); NITRITE NEGATIVE (NEGATIVE); PROTEIN NEGATIVE (NEGATIVE); UROBILINOGEN NORMAL (NORMAL)
--- NOTE | 2017-02-23 19:02 | NUR ---
OFFERED PATIENT A DULCOLAX SUPP, PATIENT REFUSED, HE STATED "MAYBE LATER."
[2017-02-24] VITALS: BP 136/89
[2017-02-24 05:09] VITALS: BP 132/80
[2017-02-24 07:37] LABS: BASOPHILS 0.2 % (0-2); EOSINOPHILS 0.9 % (0-7); HEMATOCRIT 42.9 % (42.0-54.0); HEMOGLOBIN 14.4 g/dL (13.5-17.5); IMMATURE GRANULOCYTES 0.3 % (0-5); LYMPHOCYTES 12.3 % (15-50); MCHC 33.6 g/dL (31.0-37.0); MCV 83.5 fL (80.0-100.0); MEAN PLATELET VOLUME 9.4 fL (7.4-10.4); MONOCYTES 11.8 % (2-11); NEUTROPHILS 74.5 % (40-80); PLATELET COUNT 626 10x3/uL (130-400); RBC 5.14 10x6/uL (4.20-6.10); RDW 17.2 % (11.5-14.5); WBC 12.8 10x3/uL (4.8-10.8)
--- NOTE | 2017-02-24 08:25 | NUR ---
ASSESSMENT PER FLOW SHEET.PT WITHOUT DISTRESS.DENIES NEEDS.CALL LIGHT IN REACH
[2017-02-24 08:27] LABS: ALBUMIN 3.4 g/dL (3.4-5.0); ALKALINE PHOSPHATASE 71 U/L (46-116); ALT (SGPT) 16 U/L (10-68); BILIRUBIN - TOTAL 0.54 mg/dL (0.2-1.3); CALC OSMOLALITY 271 mosm/kg (275-300); CALCIUM 9.4 mg/dL (8.5-10.1); CARBON DIOXIDE 29.2 mmol/L (21.0-32.0); CHLORIDE - SERUM 97 mmol/L (98-107); CREATININE - SERUM 0.7 mg/dL (0.6-1.3); GLUCOSE 150 mg/dL (74-106); PROTEIN - SERUM 7.2 g/dL (6.4-8.2); SODIUM 135 mmol/L (136-145); eGFR NON AFRICAN AMERICAN > 90 mL/min (90-120)
[2017-02-24 08:40] LABS: UREA NITROGEN 11 mg/dL (7-18)
[2017-02-24 09:14] VITALS: BP 142/103
--- NOTE | 2017-02-24 12:00 | NUR ---
PT REPORTS SMALL BM AFTER MEDS ORDERED.
[2017-02-24 12:20] VITALS: BP 130/95
[2017-02-24 15:58] VITALS: BP 131/104
--- NOTE | 2017-02-24 16:14 | NUR ---
REMAINS WITHOUT NEEDS.FAMILY AT BEDSIDE.
[2017-02-24 23:14] VITALS: BP 153/93
[2017-02-25 04:00] VITALS: BP 128/101
[2017-02-25 07:08] LABS: BASOPHILS 0.2 % (0-2); EOSINOPHILS 0.7 % (0-7); HEMATOCRIT 43.7 % (42.0-54.0); HEMOGLOBIN 14.7 g/dL (13.5-17.5); IMMATURE GRANULOCYTES 0.2 % (0-5); LYMPHOCYTES 12.1 % (15-50); MCH 28.2 pg (26.0-34.0); MCHC 33.6 g/dL (31.0-37.0); MCV 83.7 fL (80.0-100.0); MEAN PLATELET VOLUME 9.7 fL (7.4-10.4); MONOCYTES 12.9 % (2-11); NEUTROPHILS 73.9 % (40-80); PLATELET COUNT 684 10x3/uL (130-400); RBC 5.22 10x6/uL (4.20-6.10); RDW 17.3 % (11.5-14.5); WBC 13.2 10x3/uL (4.8-10.8)
[2017-02-25 07:32] LABS: ALBUMIN 3.6 g/dL (3.4-5.0); ALKALINE PHOSPHATASE 77 U/L (46-116); ALT (SGPT) 17 U/L (10-68); BILIRUBIN - TOTAL 0.52 mg/dL (0.2-1.3); CALC OSMOLALITY 269 mosm/kg (275-300); CALCIUM 9.6 mg/dL (8.5-10.1); CARBON DIOXIDE 31.3 mmol/L (21.0-32.0); CHLORIDE - SERUM 96 mmol/L (98-107); CREATININE - SERUM 0.7 mg/dL (0.6-1.3); GLUCOSE 144 mg/dL (74-106); POTASSIUM - SERUM 4.1 mmol/L (3.5-5.1); PROTEIN - SERUM 7.5 g/dL (6.4-8.2); SODIUM 134 mmol/L (136-145); UREA NITROGEN 11 mg/dL (7-18); eGFR NON AFRICAN AMERICAN > 90 mL/min (90-120)
--- NOTE | 2017-02-25 08:00 | NUR ---
PT AOX4 RESP EVEN AND NONLABORED PT DENIES NEEDS AT TIME IV TO LEFT FOREARM PATENT AND INTACT SRX2 BED AT LOWEST SETTING CALL LIGHT WITHIN REACH WILL CONTINUE TO MONITOR
[2017-02-25 09:35] VITALS: BP 143/98
[2017-02-25 18:22] VITALS: BP 132/68
--- NOTE | 2017-02-25 19:54 | NUR ---
RECEIVED IN BEDROOM. AMBULATING FOR BATHROOM. ALERT AND ORIENTED.DRESSING TO ABDOMEN INTACT. NO NEEDS VOICED AT THIS TIME. CALL LIGHT IN REACH
[2017-02-25 20:00] VITALS: BP 129/92
--- NOTE | 2017-02-26 02:54 | NUR ---
RESTING IN BED EYES CLOSED. NO SIGNS OF DISTRESS. CALL LIGHT IN REACH
[2017-02-26 04:00] VITALS: BP 124/92
[2017-02-26 06:42] LABS: BASOPHILS 0.2 % (0-2); EOSINOPHILS 0.8 % (0-7); HEMOGLOBIN 13.7 g/dL (13.5-17.5); IMMATURE GRANULOCYTES 0.3 % (0-5); LYMPHOCYTES 13.1 % (15-50); MCH 27.8 pg (26.0-34.0); MCHC 33.4 g/dL (31.0-37.0); MCV 83.3 fL (80.0-100.0); MEAN PLATELET VOLUME 9.6 fL (7.4-10.4); MONOCYTES 13.8 % (2-11); NEUTROPHILS 71.8 % (40-80); PLATELET COUNT 688 10x3/uL (130-400); RBC 4.92 10x6/uL (4.20-6.10); RDW 17.2 % (11.5-14.5); WBC 14.9 10x3/uL (4.8-10.8)
[2017-02-26 07:05] LABS: ALBUMIN 3.2 g/dL (3.4-5.0); ALKALINE PHOSPHATASE 70 U/L (46-116); ALT (SGPT) 14 U/L (10-68); CALC OSMOLALITY 267 mosm/kg (275-300); CALCIUM 9.2 mg/dL (8.5-10.1); CARBON DIOXIDE 29.6 mmol/L (21.0-32.0); CHLORIDE - SERUM 96 mmol/L (98-107); CREATININE - SERUM 0.7 mg/dL (0.6-1.3); GLUCOSE 158 mg/dL (74-106); PROTEIN - SERUM 6.9 g/dL (6.4-8.2); SODIUM 133 mmol/L (136-145); UREA NITROGEN 10 mg/dL (7-18); eGFR NON AFRICAN AMERICAN > 90 mL/min (90-120)
--- NOTE | 2017-02-26 07:50 | NUR ---
PT AOX4 RESP EVEN AND NONLABORED PT DENIES NEEDS AT THIS TIME IV TO LEFT FOREARM PATENT AND INTACT SRX2 BED AT LOWEST SETTING CALL LIGHT WITHIN REACH WILL CONTINUE TO MONITOR
[2017-02-26 08:31] VITALS: BP 143/85
[2017-02-26 12:32] VITALS: BP 140/84
--- NOTE | 2017-02-26 13:12 | NUR ---
CM REASSESSMENT NOTE: MAHNAZ SPOKE WITH JI GARBER (DIRECTOR OF CM) AND SHE APPROVED CHEMO DRUG (ABRAXANE) 100MG FOR PATIENT. KIT IN PHARMACY WAS NOTIFIED BY CM.
[2017-02-26 16:09] VITALS: BP 116/92
--- NOTE | 2017-02-26 19:33 | NUR ---
REQUESTING PILL FOR HIS NERVES. VALIUM 5MG PO GIVEN FOR NERVES.
[2017-02-26 20:00] VITALS: BP 150/96
--- NOTE | 2017-02-26 20:00 | NUR ---
ASSESSMENT PER FLOWSHEET. IV PATENT LEFT FOREARM OF PROCAL INFUSING AT 125CC'S/HR NS AT 20CC'S/HR SOUND SYSTEM INSTALLER OF DILAUDID IN USE WITH SETTINGS AT 0.2MG Q10MIN W/6MG Q4H L/O. REFUSES SCD'S. TELM. SHOWS ST WITH HR 110.
--- NOTE | 2017-02-26 21:30 | NUR ---
MEDS GIVEN PER NOV. PT SITTING UPRIGHT IN BEDSIDE CHAIR.
[2017-02-27] VITALS: BP 131/89
--- NOTE | 2017-02-27 01:41 | NUR ---
RESING IN CHAIR DENIES NEEDS.
--- NOTE | 2017-02-27 03:30 | NUR ---
AWAKE SITTING UPRIGHT IN RECLINER CHAIR DENIES NEEDS.
[2017-02-27 04:00] VITALS: BP 144/88
--- NOTE | 2017-02-27 05:23 | NUR ---
AWAKE DRINKING HIS ICE TEA DENIES NEEDS.
--- NOTE | 2017-02-27 06:13 | NUR ---
REMAINS UP IN CHAIR DENIES NEEDS.
[2017-02-27 06:14] LABS: BASOPHILS 0.2 % (0-2); EOSINOPHILS 0.4 % (0-7); HEMATOCRIT 41.1 % (42.0-54.0); HEMOGLOBIN 13.8 g/dL (13.5-17.5); IMMATURE GRANULOCYTES 0.3 % (0-5); LYMPHOCYTES 9.7 % (15-50); MCH 27.9 pg (26.0-34.0); MCHC 33.6 g/dL (31.0-37.0); MEAN PLATELET VOLUME 9.1 fL (7.4-10.4); MONOCYTES 13.2 % (2-11); NEUTROPHILS 76.2 % (40-80); PLATELET COUNT 625 10x3/uL (130-400); RBC 4.95 10x6/uL (4.20-6.10); RDW 17.3 % (11.5-14.5)
[2017-02-27 06:44] LABS: ALBUMIN 3.3 g/dL (3.4-5.0); ALKALINE PHOSPHATASE 74 U/L (46-116); ALT (SGPT) 12 U/L (10-68); BILIRUBIN - TOTAL 0.49 mg/dL (0.2-1.3); CALC OSMOLALITY 267 mosm/kg (275-300); CALCIUM 9.4 mg/dL (8.5-10.1); CARBON DIOXIDE 28.8 mmol/L (21.0-32.0); CHLORIDE - SERUM 96 mmol/L (98-107); CREATININE - SERUM 0.6 mg/dL (0.6-1.3); GLUCOSE 174 mg/dL (74-106); POTASSIUM - SERUM 4.3 mmol/L (3.5-5.1); PROTEIN - SERUM 6.9 g/dL (6.4-8.2); SODIUM 132 mmol/L (136-145); UREA NITROGEN 10 mg/dL (7-18); eGFR NON AFRICAN AMERICAN > 90 mL/min (90-120)
--- NOTE | 2017-02-27 07:23 | NUR ---
IV TO LEFT FOREARM RED AND TENDER, D/C WITH CATHETER INTACT.
--- NOTE | 2017-02-27 08:03 | NUR ---
IV STARTED TO RIGHT FOREARM X'S 1 ATTEMPT. 22G.
[2017-02-27 08:17] VITALS: BP 125/96
--- NOTE | 2017-02-27 10:49 | NUR ---
SOAPS SUDS ENEMA COMPLETED AT THIS TIME
[2017-02-27 12:01] VITALS: BP 136/91
[2017-02-27 15:58] VITALS: BP 125/95
[2017-02-27 20:00] VITALS: BP 130/89
--- NOTE | 2017-02-27 20:00 | NUR ---
ASSESSMENT PER FLOWSHEET. IV PATENT RT FOREARM OF PROCAL AT 125CC'S/HR NS AT 20CC'S/HR CAVITY PUMP OPERATOR OF DILAUDID WITH SETTINGS AT 0.2MG Q10 MIN W/6MG Q4H L/O.
--- NOTE | 2017-02-27 22:00 | NUR ---
MEDS GIVEN PER MAR. RT ARM IV SITE NOTED AT HARD TO TOUCH AND RED. REMOVED IV WITH TIP INTACT. ATTEMPT TO RESITE. UNABLE TO OBTAIN IV SITE PT STATES i HAVE A PORT. ACCESSED IV INFUSAPORT GOOD BLOOD RETURN NOTED. RSUMED IV FLUIDS AND STAVE CUTTER.
[2017-02-28] VITALS: BP 130/83
--- NOTE | 2017-02-28 01:00 | NUR ---
RESTING QUIETLY DENIES NEEDS VOIDS WELL IN URINAL.
[2017-02-28 04:00] VITALS: BP 130/89
--- NOTE | 2017-02-28 04:00 | NUR ---
RESTING QUIELY DENIES NEEDS. BODY IN GOOD ALIGNMENT.
[2017-02-28 05:23] LABS: BASOPHILS 0.2 % (0-2); EOSINOPHILS 0.3 % (0-7); HEMATOCRIT 40.1 % (42.0-54.0); HEMOGLOBIN 13.7 g/dL (13.5-17.5); IMMATURE GRANULOCYTES 0.3 % (0-5); LYMPHOCYTES 12.6 % (15-50); MCHC 34.2 g/dL (31.0-37.0); MCV 81.8 fL (80.0-100.0); MEAN PLATELET VOLUME 8.8 fL (7.4-10.4); MONOCYTES 11.6 % (2-11); PLATELET COUNT 639 10x3/uL (130-400); WBC 15.8 10x3/uL (4.8-10.8)
--- NOTE | 2017-02-28 06:12 | NUR ---
NO CHAGES IN ASSESSMENT
[2017-02-28 06:24] LABS: ALBUMIN 3.2 g/dL (3.4-5.0); ALKALINE PHOSPHATASE 70 U/L (46-116); ALT (SGPT) 14 U/L (10-68); CALC OSMOLALITY 267 mosm/kg (275-300); CALCIUM 9.4 mg/dL (8.5-10.1); CARBON DIOXIDE 26.8 mmol/L (21.0-32.0); CHLORIDE - SERUM 97 mmol/L (98-107); CREATININE - SERUM 0.5 mg/dL (0.6-1.3); GLUCOSE 168 mg/dL (74-106); POTASSIUM - SERUM 4.2 mmol/L (3.5-5.1); SODIUM 132 mmol/L (136-145); UREA NITROGEN 9 mg/dL (7-18); eGFR NON AFRICAN AMERICAN > 90 mL/min (90-120)
[2017-02-28 08:51] VITALS: BP 126/88
--- NOTE | 2017-02-28 10:54 | NUR ---
PATIENT IS SITTING IN BED WITH HIS HEAD LEANED DOWN INTO HIS LAP. PATIENT STATED "YOU ARE GOING TO HAVE TO CALL ONE OF THOSE DOCTORS AND GET ME SOMETHING ORDERED FOR MY NERVES THAT VALIUM IS NOT CUTTING IT." SPOKE WITH MAYRA BARRAZA SHE STATED GIVE VALIUM IV 2MG ONE TIME DOSE.
[2017-02-28 13:12] VITALS: BP 140/95
--- NOTE | 2017-02-28 13:41 | NUR ---
PATIENT IS CRYING. HE STATED HIS PAIN IS A 10/10. TOLD HIM THAT INCREASED HIS FENTANYL PATCH. HE STATED "THAT DOES NOTHING FOR ME EXCEPT MAKE ME SICK. I HAVE 25MCG PATCHES AT HOME. IF I DO NOT GET SOME RELIEF SOON I AM LEAVING AND I WILL GO SOMEWHERE ELSE."
--- NOTE | 2017-02-28 13:41 | NUR ---
GAVE PATIENT A BOLUS OF 0.4MG ON HIS DILAUDID FISH HATCHERY INSPECTOR. ON HOLD TO SPEAK WITH NOW.
[2017-02-28 14:50] VITALS: BP 124/87
--- NOTE | 2017-02-28 15:22 | NUR ---
NUTRITION MONITORING & EVAL CHART REVIEWED. CURRENTLY NPO FOR TEST. HAS HAD POOR INTAKE FULL LIQUID DIET. PROCALAMINE AND LIPIDS PROVIDING 985 KCAL, [address] PROTE[address] DAY. RD FOLLOWING
--- NOTE | 2017-02-28 19:00 | NUR ---
BEDSIDE REPORT RECEIVED AND CARE OF PT ASSUMED. PT LYING IN SEMI FORD'S POSITION WATCHING TV. RIGHT PORT ACCESSED WITH TPN INFUSING AT 75 ML / HR, NS INFUSING AT 20 ML / HR, AND LIPIDS INFUSING AT 31.5 . HEALTH ECONOMIST / DILAUDID IN USE FOR PAIN CONTROL. WILL MONITOR CLOSELY FOR NEEDS. CALL LIGHT WITHIN REACH.
--- NOTE | 2017-02-28 19:25 | NUR ---
PT WENT TO RADILOGY FOR CTA.
--- NOTE | 2017-02-28 19:35 | NUR ---
PT BACK FROM RADIOLOGY. IV FLUIDS RE-STARTED.
[2017-02-28 20:00] VITALS: BP 130/87
--- NOTE | 2017-02-28 21:57 | NUR ---
HS MEDICATIONS GIVEN. WILL CONTINUE TO MONITOR FOR NEEDS.
[2017-03-01] VITALS: BP 112/72
--- NOTE | 2017-03-01 03:00 | NUR ---
CHANGED DRESSING ON RIGHT PORT USING STERILE TECHNIQUE.
[2017-03-01 04:00] VITALS: BP 109/80
--- NOTE | 2017-03-01 05:10 | NUR ---
STARTED NEW BAG OF TPN EARLY WITH NEW TUBING OTHER HAD SEDIMENT IN BOTTOM OF BAG, AND WAS CONSTANTLY SOUNDING OCCLUSION ALARM, EVEN AFTER CHANGING PUMPS.
--- NOTE | 2017-03-01 07:30 | NUR ---
AWAKE AND ALERT. ORIENTED X3. NO C/O THIS AM. LUNGS ARE CLEAR BILATERALLY, NO COUGH NOTED. SKIN IS INTACT WITHOUT REDNESS. RIGHT PORT IS PATENT WITHOUT REDNESS AT INSERTION SITE. DENIES NEEDS.
--- NOTE | 2017-03-01 08:30 | NUR ---
ATE/DRANK MOST OF FULL LIQUID BREAKFAST. ALSO REQUESTED AND GIVEN 2 THINGS OF ICECREAM AFTER BREAKFAST. DENIES NEEDS.
[2017-03-01 10:13] VITALS: BP 102/75
--- NOTE | 2017-03-01 11:07 | NUR ---
RESTING QUIETLY AT THIS TIME. DENIES NEEDS.
[2017-03-01 12:27] VITALS: BP 107/80
[2017-03-01 13:26] LABS: BASOPHILS 0.2 % (0-2); EOSINOPHILS 0.7 % (0-7); IMMATURE GRANULOCYTES 0.2 % (0-5); LYMPHOCYTES 14.5 % (15-50); MCH 28.1 pg (26.0-34.0); MCHC 34.2 g/dL (31.0-37.0); MCV 82.1 fL (80.0-100.0); MEAN PLATELET VOLUME 8.9 fL (7.4-10.4); MONOCYTES 14.4 % (2-11); RBC 4.63 10x6/uL (4.20-6.10); RDW 17.1 % (11.5-14.5); WBC 16.2 10x3/uL (4.8-10.8)
[2017-03-01 13:38] LABS: PLATELET COUNT 508 10x3/uL (130-400)
[2017-03-01 13:43] LABS: ALBUMIN 3.2 g/dL (3.4-5.0); ALKALINE PHOSPHATASE 63 U/L (46-116); ALT (SGPT) 14 U/L (10-68); BILIRUBIN - TOTAL 0.45 mg/dL (0.2-1.3); CALC OSMOLALITY 266 mosm/kg (275-300); CALCIUM 9.5 mg/dL (8.5-10.1); CARBON DIOXIDE 30.8 mmol/L (21.0-32.0); CHLORIDE - SERUM 98 mmol/L (98-107); CREATININE - SERUM 0.4 mg/dL (0.6-1.3); GLUCOSE 121 mg/dL (74-106); POTASSIUM - SERUM 4.6 mmol/L (3.5-5.1); PROTEIN - SERUM 6.3 g/dL (6.4-8.2); SODIUM 134 mmol/L (136-145); UREA NITROGEN 8 mg/dL (7-18); eGFR NON AFRICAN AMERICAN > 90 mL/min (90-120)
[2017-03-01 16:08] VITALS: BP 114/74
--- NOTE | 2017-03-01 19:38 | NUR ---
DIDN'T EAT ANY SUPPER. NO CHANGES NOTED. DENIES NEEDS.
[2017-03-01 20:00] VITALS: BP 115/71
[2017-03-02] VITALS: BP 121/76
[2017-03-02 04:31] LABS: BASOPHILS 0.2 % (0-2); EOSINOPHILS 1.1 % (0-7); HEMOGLOBIN 13.2 g/dL (13.5-17.5); IMMATURE GRANULOCYTES 0.3 % (0-5); MCH 28.1 pg (26.0-34.0); MCHC 33.8 g/dL (31.0-37.0); MEAN PLATELET VOLUME 9.1 fL (7.4-10.4); MONOCYTES 14.5 % (2-11); NEUTROPHILS 68.9 % (40-80); PLATELET COUNT 443 10x3/uL (130-400); RDW 17.3 % (11.5-14.5); WBC 16.4 10x3/uL (4.8-10.8)
[2017-03-02 05:46] LABS: ALBUMIN 3.4 g/dL (3.4-5.0); ALKALINE PHOSPHATASE 67 U/L (46-116); BILIRUBIN - TOTAL 0.44 mg/dL (0.2-1.3); CALC OSMOLALITY 274 mosm/kg (275-300); CALCIUM 9.6 mg/dL (8.5-10.1); CARBON DIOXIDE 32.6 mmol/L (21.0-32.0); CHLORIDE - SERUM 98 mmol/L (98-107); GLUCOSE 136 mg/dL (74-106); POTASSIUM - SERUM 4.3 mmol/L (3.5-5.1); PROTEIN - SERUM 6.5 g/dL (6.4-8.2); SODIUM 137 mmol/L (136-145); UREA NITROGEN 9 mg/dL (7-18)
[2017-03-02 05:49] LABS: ALT (SGPT) 18 U/L (10-68); CREATININE - SERUM 0.7 mg/dL (0.6-1.3); eGFR NON AFRICAN AMERICAN > 90 mL/min (90-120)
--- NOTE | 2017-03-02 07:30 | NUR ---
AWAKE AND ALERT. ORIENTED X3. NO C/O AT THIS TIME. LUNGS ARE CLEAR BILATERALLY, NO COUGH NOTED. SKIN IS INTACT WITHOUT REDNESS. RIGHT PORT PATENT WITHOUT REDNESS AT INSERTIONS SITE. DENIES NEEDS.
[2017-03-02 08:42] VITALS: BP 107/78
--- NOTE | 2017-03-02 09:30 | NUR ---
ATE ABOUT HALF OF BREAKFAST WITHOUT INCREASED PAIN. DENIES NEEDS.
--- NOTE | 2017-03-02 12:00 | NUR ---
LUNCH SERVED IN ROOM. ATE A SMALL AMOUNT OF FOOD. VISITORS AT BEDSIDE. DENIES NEEDS.
--- NOTE | 2017-03-02 12:40 | NUR ---
Nutrition Follow Up: Pt reported that he was able to eat breakfast this am. He said that he had some pain with eating but denied any nausea. +BM 03/01/17. Meds noted. Labs reviewed. Noted diet has been advanced to regular. Current TPN regimen: D25 AA 4.25% @ 75 ml/hr; 20% Lipids 250 ml q 48 hours. Rec continue current diet as tolerated. If pt is able to tolerate po diet rec tapering TPN. Will order labs x [address] will continue to monitor pt progress.
[2017-03-02 12:52] VITALS: BP 111/52
--- NOTE | 2017-03-02 14:00 | NUR ---
PREMEDICATED FOR CHEMO.
--- NOTE | 2017-03-02 15:02 | NUR ---
ABRAXANE 195 MG/39 ML 0.9% SALINE INITITAED VIA RT. IP PER CHEMO POLICY @ 39 ML/HR. RT. IP DEMONSTRATED GOOD BLOOD RETURN AND FLUSHED WITH EASE PRIOR TO INITIATION OF CHEMO WITHOUT S/S OF EXTRAVASATION. VS: 118/67, 16, 102, O2 SAT 98 PERCENT ON RA. AFEBRILE. WILL CONT. TO MONITOR.
--- NOTE | 2017-03-02 16:14 | NUR ---
CHEMO INFUSED PER VERNON CHOI RN. NO DIFFICULTY WITH INFUSION.
--- NOTE | 2017-03-02 18:37 | NUR ---
REQUESTED AND GIVEN 5MG VALIUM PO FOR C/O FEELING JITTERY. WILL MONITOR. DENIES NEEDS. NO CHANGES NOTED.
[2017-03-02 20:00] VITALS: BP 126/90
--- NOTE | 2017-03-02 20:00 | NUR ---
ASSESSMENT PER FLOW SHEET.PT WITHOUT DISTRESS.DENIES NEEDS.REQUEST PM SLEEPING MEDS BE BROUGHT BACK AT LATER TIME.CALL LIGHT IN REACH
--- NOTE | 2017-03-02 23:54 | NUR ---
STILL AWAKE.SLEEPING MEDS GIVEN PT REQUESTED.MEDS HAD BEEN DECLINED EARLIER.MONITOR FOR NEEDS
[2017-03-03] VITALS: BP 101/76
--- NOTE | 2017-03-03 02:53 | NUR ---
DENIES NEEDS,REMAINS WITHOUT DISTRES.DECLINED SUPPOSITOR DURING NIGHT.MONITOR FOR NEEDS
[2017-03-03 04:00] VITALS: BP 100/69
--- NOTE | 2017-03-03 05:10 | NUR ---
REMAINS WITHOUT CHANGE FROM INITIAL SHIFT ASSESSMENT.CONT PLAN OF CARE
[2017-03-03 05:35] LABS: BASOPHILS 0.2 % (0-2); EOSINOPHILS 1.6 % (0-7); HEMATOCRIT 37.4 % (42.0-54.0); HEMOGLOBIN 12.7 g/dL (13.5-17.5); IMMATURE GRANULOCYTES 0.5 % (0-5); LYMPHOCYTES 11.1 % (15-50); MCV 82.6 fL (80.0-100.0); MEAN PLATELET VOLUME 9.4 fL (7.4-10.4); MONOCYTES 9.5 % (2-11); NEUTROPHILS 77.1 % (40-80); PLATELET COUNT 400 10x3/uL (130-400); RBC 4.53 10x6/uL (4.20-6.10); RDW 17.6 % (11.5-14.5)
[2017-03-03 05:47] LABS: ALBUMIN 3.1 g/dL (3.4-5.0); ALKALINE PHOSPHATASE 67 U/L (46-116); ALT (SGPT) 22 U/L (10-68); CALC OSMOLALITY 269 mosm/kg (275-300); CALCIUM 8.7 mg/dL (8.5-10.1); CARBON DIOXIDE 29.4 mmol/L (21.0-32.0); CHLORIDE - SERUM 98 mmol/L (98-107); CREATININE - SERUM 0.6 mg/dL (0.6-1.3); GLUCOSE 160 mg/dL (74-106); MAGNESIUM - SERUM 2.1 mg/dL (1.8-2.4); POTASSIUM - SERUM 4.6 mmol/L (3.5-5.1); PROTEIN - SERUM 6.5 g/dL (6.4-8.2); SODIUM 134 mmol/L (136-145); UREA NITROGEN 10 mg/dL (7-18); eGFR NON AFRICAN AMERICAN > 90 mL/min (90-120)
[2017-03-03 08:35] VITALS: BP 121/72
--- NOTE | 2017-03-03 11:30 | NUR ---
PATIENT STATED HE HAD A LARGE FORMED BOWEL MOVEMENT.
[2017-03-03 12:01] VITALS: BP 98/71
[2017-03-03 16:13] VITALS: BP 111/73
[2017-03-03 20:00] VITALS: BP 111/73
--- NOTE | 2017-03-03 20:00 | NUR ---
ASSESSEENT PER FLOW SHEET.PT WITHOUT DISTRESS.CALL LIGHT IN REACH
[2017-03-04] VITALS: BP 101/61
[2017-03-04 04:00] VITALS: BP 98/66
--- NOTE | 2017-03-04 04:16 | NUR ---
RESTING AFTER MEDS FOR SLEEP EARLIER IN NIGHT.PT REFUSES TO TAKE THEM AT 2100 AND REQUEST MEDS AROUND 2300.MONITOR FOR NEEDS
--- NOTE | 2017-03-04 06:24 | NUR ---
AWAKE,WITHOUT CHANGE.CONT PLAN OF CARE
[2017-03-04 06:46] LABS: BASOPHILS 0.1 % (0-2); EOSINOPHILS 1.1 % (0-7); HEMATOCRIT 35.9 % (42.0-54.0); HEMOGLOBIN 12.2 g/dL (13.5-17.5); IMMATURE GRANULOCYTES 0.4 % (0-5); LYMPHOCYTES 8.2 % (15-50); MCV 82.3 fL (80.0-100.0); MEAN PLATELET VOLUME 9.1 fL (7.4-10.4); MONOCYTES 8.2 % (2-11); PLATELET COUNT 326 10x3/uL (130-400); RBC 4.36 10x6/uL (4.20-6.10); WBC 14.2 10x3/uL (4.8-10.8)
[2017-03-04 06:56] LABS: ALBUMIN 2.9 g/dL (3.4-5.0); ALKALINE PHOSPHATASE 69 U/L (46-116); ALT (SGPT) 24 U/L (10-68); BILIRUBIN - TOTAL 0.74 mg/dL (0.2-1.3); CALC OSMOLALITY 270 mosm/kg (275-300); CALCIUM 8.6 mg/dL (8.5-10.1); CARBON DIOXIDE 28.9 mmol/L (21.0-32.0); CHLORIDE - SERUM 99 mmol/L (98-107); CREATININE - SERUM 0.7 mg/dL (0.6-1.3); GLUCOSE 175 mg/dL (74-106); MAGNESIUM - SERUM 1.9 mg/dL (1.8-2.4); POTASSIUM - SERUM 4.3 mmol/L (3.5-5.1); PROTEIN - SERUM 6.4 g/dL (6.4-8.2); SODIUM 134 mmol/L (136-145); UREA NITROGEN 9 mg/dL (7-18); eGFR NON AFRICAN AMERICAN > 90 mL/min (90-120)
--- NOTE | 2017-03-04 07:10 | NUR ---
PT IS AWKAKE, ALERT AND ORIENTED X 4, EMPTIED 400CC FROM PT URINAL, ACTIVE BOWEL SOUNDS, VERBALIZED NO PAIN AT THIS TIME. BED IS IN LOW POSITION, CALL LIGHT WITHIN REACH
[2017-03-04 08:04] VITALS: BP 112/73
[2017-03-04 12:00] VITALS: BP 107/74
--- NOTE | 2017-03-04 12:56 | NUR ---
PATIENT REQUESTED ASSISTANCE AND INFORMATION REGARDING SOCIAL SECURITY DISABILITIY PREPLANNING IN CASE HE CANNOT RETURN TO WORK WHEN ST DISABILITY EXPIRES. TC TO MED DATA. CM LEFT VOICEMAIL MESSAGE FOR DAVE OR MATILDA TO SPEAK WITH THE PATIENT REGARDING ABOVE.
--- NOTE | 2017-03-04 13:29 | NUR ---
PT IS SITTING IN BED READING PAPER, PT REQUESTED SHOWER TO BE DONE ABOUT 3 TODAY. NO SIGNS OF DISTRESS
--- NOTE | 2017-03-04 14:37 | NUR ---
PATIENT IN BED. NO SIGNS OF DISTRESS NOTED. PATIENT DENIES NEEDS. CHANGED PATIENT'S IV TUBINGS.
[2017-03-04 16:00] VITALS: BP 106/70
[2017-03-04 20:00] VITALS: BP 118/80
--- NOTE | 2017-03-04 23:01 | NUR ---
PT WITHOUT DISTRESS.DENIES NEEDS.CALL LIGHT IN REACG.LEGAL ASSISTANT FOR PAIN.
[2017-03-05 04:00] VITALS: BP 96/66
[2017-03-05 05:02] LABS: BASOPHILS 0.1 % (0-2); EOSINOPHILS 1.9 % (0-7); HEMATOCRIT 35.4 % (42.0-54.0); HEMOGLOBIN 11.9 g/dL (13.5-17.5); IMMATURE GRANULOCYTES 0.3 % (0-5); LYMPHOCYTES 9.8 % (15-50); MCH 27.8 pg (26.0-34.0); MCHC 33.6 g/dL (31.0-37.0); MCV 82.7 fL (80.0-100.0); MEAN PLATELET VOLUME 9.8 fL (7.4-10.4); MONOCYTES 6.2 % (2-11); NEUTROPHILS 81.7 % (40-80); PLATELET COUNT 367 10x3/uL (130-400); RBC 4.28 10x6/uL (4.20-6.10); WBC 13.6 10x3/uL (4.8-10.8)
[2017-03-05 05:25] LABS: ALBUMIN 2.9 g/dL (3.4-5.0); ALKALINE PHOSPHATASE 66 U/L (46-116); ALT (SGPT) 18 U/L (10-68); BILIRUBIN - TOTAL 0.47 mg/dL (0.2-1.3); CALC OSMOLALITY 268 mosm/kg (275-300); CALCIUM 8.7 mg/dL (8.5-10.1); CARBON DIOXIDE 29.3 mmol/L (21.0-32.0); CHLORIDE - SERUM 98 mmol/L (98-107); CREATININE - SERUM 0.6 mg/dL (0.6-1.3); GLUCOSE 159 mg/dL (74-106); MAGNESIUM - SERUM 1.9 mg/dL (1.8-2.4); PHOSPHOROUS 4.3 mg/dL (2.5-4.9); POTASSIUM - SERUM 4.3 mmol/L (3.5-5.1); PROTEIN - SERUM 6.4 g/dL (6.4-8.2); SODIUM 134 mmol/L (136-145); UREA NITROGEN 8 mg/dL (7-18); eGFR NON AFRICAN AMERICAN > 90 mL/min (90-120)
--- NOTE | 2017-03-05 07:30 | NUR ---
RECIEVED PT DURING WALKING ROUNDS. PT RESTING IN BED WITH COMPLAINTS OF PAIN OF A 6 ON A SCALE OF 1-10. INCLUSION SPECIAL EDUCATOR IN USE. ASSESSMENT DONE PER FLOWSHEET, BED IN LOW POSITION AND CALL LIGHT WITHIN REACH. WILL CONTINUE TO MONITOR.
[2017-03-05 09:28] VITALS: BP 113/73
--- NOTE | 2017-03-05 11:11 | NUR ---
Nutrition follow-up: TPN + lipids continue Diet advanced to regular with po intake ~50% of meals +BM Labs reviewed Wt: 139# If po intake continues to improve (at least 60% of meals consistently) would start to taper TPN. RDN following.
[2017-03-05 12:16] VITALS: BP 107/66
[2017-03-05 16:01] VITALS: BP 99/60
[2017-03-05 19:00] VITALS: BP 92/65
--- NOTE | 2017-03-06 03:38 | NUR ---
PATIENT RESTING IN BED WITH ISAURO WARREN AT BEDSIDE. BED IN LOWEST POSITION AND CALL LIGHT WITHIN REACH. ENCOURAGED THE PATIENT TO CALL IF HE HAS NEEDS.
[2017-03-06 04:00] VITALS: BP 105/71
[2017-03-06 07:16] LABS: BASOPHILS 0.3 % (0-2); EOSINOPHILS 3.4 % (0-7); HEMOGLOBIN 12.1 g/dL (13.5-17.5); IMMATURE GRANULOCYTES 0.3 % (0-5); LYMPHOCYTES 11.7 % (15-50); MCH 28.7 pg (26.0-34.0); MCHC 34.6 g/dL (31.0-37.0); MCV 82.9 fL (80.0-100.0); MEAN PLATELET VOLUME 9.8 fL (7.4-10.4); MONOCYTES 5.1 % (2-11); NEUTROPHILS 79.2 % (40-80); PLATELET COUNT 408 10x3/uL (130-400); RBC 4.22 10x6/uL (4.20-6.10); RDW 17.2 % (11.5-14.5); WBC 13.6 10x3/uL (4.8-10.8)
--- NOTE | 2017-03-06 07:30 | NUR ---
RECIEVED PT DURING WALKING ROUNDS, PT RESTING IN BED WITH COMPLAINTS OF PAIN OF A 5 ON A SCALE OF 1-10. CALLIOPE PLAYER IN USE, ASSESSMENT DONE PER FLOWSHEET. BED IN LOW POSITION AND CALL LIGHT WITHIN REACH. WILL CONTINUE TO MONITOR.
[2017-03-06 07:55] LABS: ALBUMIN 2.8 g/dL (3.4-5.0); ALKALINE PHOSPHATASE 65 U/L (46-116); ALT (SGPT) 16 U/L (10-68); CALC OSMOLALITY 267 mosm/kg (275-300); CALCIUM 8.5 mg/dL (8.5-10.1); CARBON DIOXIDE 27.3 mmol/L (21.0-32.0); CHLORIDE - SERUM 99 mmol/L (98-107); CREATININE - SERUM 0.6 mg/dL (0.6-1.3); GLUCOSE 140 mg/dL (74-106); MAGNESIUM - SERUM 1.8 mg/dL (1.8-2.4); POTASSIUM - SERUM 4.4 mmol/L (3.5-5.1); PROTEIN - SERUM 6.1 g/dL (6.4-8.2); SODIUM 134 mmol/L (136-145); UREA NITROGEN 7 mg/dL (7-18); eGFR NON AFRICAN AMERICAN > 90 mL/min (90-120)
[2017-03-06 08:54] VITALS: BP 117/71
[2017-03-06 19:00] VITALS: BP 114/73
--- NOTE | 2017-03-06 19:30 | NUR ---
ASSESSMENT COMPLETE. S1S2. SINUS TACHY CARDIA SHOWING ON MONITOR; RATE OF 101. RR EQUAL NON LABORED. PT C/O PAIN 4/10 IN ABD; CONSTANT DULL AT REST. ON DILAUDID FLEET OPERATIONS MANAGER. SCAR FROM MID ABD INCISION; PREVIOUS. AAO X4. RADIAL AND PEDAL PULSES PALPATED. FOLLOWS COMMANDS. DENIES ANY NEEDS AT THIS TIME.
--- NOTE | 2017-03-06 23:50 | NUR ---
PT RESTING; EYES CLOSED. NO DISTRESS NOTED. CALL LIGHT IN REACH. WILL CONTINUE TO MONITOR.
[2017-03-07 04:00] VITALS: BP 117/70
--- NOTE | 2017-03-07 04:00 | NUR ---
I/O COLLECTED; ATTEMPTED TO DRAW LAB FROM PORT; UNABLE TO GET ENOUGH BLOOD RETURN.
[2017-03-07 05:28] LABS: MAGNESIUM - SERUM 1.7 mg/dL (1.8-2.4); PHOSPHOROUS 4.5 mg/dL (2.5-4.9)
--- NOTE | 2017-03-07 06:12 | NUR ---
MAGNESIUM 1.7 TREATED PER PROTOCOL.
--- NOTE | 2017-03-07 07:30 | NUR ---
RECIEVED PT DURING WALKING ROUNDS. PT RESTING IN BED WITH COMPLAINTS OF PAIN OF A 5 ON A SCALE OF 1-10. VEGETABLE FARMER IN USE. ASSESSMENT DONE PER FLOWSHEET. BED IN LOW POSITION AND CALL LIGHT WITHIN REACH. WILL CONTINUE TO MONITOR.
[2017-03-07 08:51] VITALS: BP 109/77
[2017-03-07 11:39] LABS: BASOPHILS 0.2 % (0-2); EOSINOPHILS 2.6 % (0-7); HEMATOCRIT 35.8 % (42.0-54.0); HEMOGLOBIN 11.8 g/dL (13.5-17.5); IMMATURE GRANULOCYTES 0.2 % (0-5); LYMPHOCYTES 10.4 % (15-50); MEAN PLATELET VOLUME 9.5 fL (7.4-10.4); NEUTROPHILS 82.6 % (40-80); PLATELET COUNT 426 10x3/uL (130-400); RBC 4.21 10x6/uL (4.20-6.10); RDW 17.6 % (11.5-14.5); WBC 14.7 10x3/uL (4.8-10.8)
[2017-03-07 11:48] LABS: ALBUMIN 3.1 g/dL (3.4-5.0); ALKALINE PHOSPHATASE 73 U/L (46-116); ALT (SGPT) 17 U/L (10-68); BILIRUBIN - TOTAL 0.43 mg/dL (0.2-1.3); CALC OSMOLALITY 271 mosm/kg (275-300); CALCIUM 9.2 mg/dL (8.5-10.1); CARBON DIOXIDE 29.8 mmol/L (21.0-32.0); CHLORIDE - SERUM 98 mmol/L (98-107); CREATININE - SERUM 0.7 mg/dL (0.6-1.3); GLUCOSE 141 mg/dL (74-106); POTASSIUM - SERUM 4.4 mmol/L (3.5-5.1); PROTEIN - SERUM 6.2 g/dL (6.4-8.2); SODIUM 136 mmol/L (136-145); UREA NITROGEN 6 mg/dL (7-18); eGFR NON AFRICAN AMERICAN > 90 mL/min (90-120)
[2017-03-07 13:04] VITALS: BP 115/75
--- NOTE | 2017-03-07 15:26 | NUR ---
Patient Name: GILDARDO VASQUEZ Encounter No: [id number] : 1975 Primary Insurance: [employer] O Anticipated DC Date: 02-23-2017 Planned Disposition: Home External Planned Provider: : HAYLIE follow-up note: Patient and family in agreement with discharge plan. No changes to plan. Case management will follow and assist as needed. Eloisa Castano
[2017-03-07 16:38] VITALS: BP 116/74; BP 96/57
--- NOTE | 2017-03-07 18:20 | NUR ---
PORT DRESSING CHANGED AT THIS TIME USING STERILE TECHNIQUE.
--- NOTE | 2017-03-07 19:00 | NUR ---
BEDSIDE REPORT RECEIVED AND CARE OF PT ASSUMED. PT LYING IN HIGH FORD'S POSITION WATCHING TV. LEFT PORT ACCESSED AND SALINE LOCKED. TELEMETRY IN USE AND PT READING [address] AT THIS ASSESSMENT. WILL MONITOR FOR NEEDS.
[2017-03-07 20:00] VITALS: BP 98/69
--- NOTE | 2017-03-07 22:26 | NUR ---
HS MEDICATIONS GIVEN TO INCLUDE DILAUDID 8 MG PO PER REQUEST FOR PAIN AT LEVEL 8/10, PER PRN ORDER. WILL CONTINUE TO MONITOR FOR NEEDS.
[2017-03-08] VITALS: BP 115/74
--- NOTE | 2017-03-08 00:49 | NUR ---
PT RESTING ON RIGHT SIDE WITH EYES CLOSED AND UNLABORED BREATHING. SIDE RAILS UP X2 FOR SAFETY.
--- NOTE | 2017-03-08 01:25 | NUR ---
GAVE SCHEDULED REGLAN IVP AND REQUESTED DILAUDID 8 MG PO FOR PAIN AT LEVEL 8/10, PER PRN ORDER. WILL MONITOR FOR EFFECTIVENESS. GAVE HOT WATER AND ICE FOR PT TO MAKE TEA.
[2017-03-08 04:00] VITALS: BP 105/70
[2017-03-08 05:29] LABS: BASOPHILS 0.3 % (0-2); EOSINOPHILS 2.5 % (0-7); HEMATOCRIT 35.4 % (42.0-54.0); IMMATURE GRANULOCYTES 0.3 % (0-5); LYMPHOCYTES 14.7 % (15-50); MCH 28.1 pg (26.0-34.0); MCHC 33.9 g/dL (31.0-37.0); MEAN PLATELET VOLUME 9.1 fL (7.4-10.4); MONOCYTES 6.4 % (2-11); NEUTROPHILS 75.8 % (40-80); PLATELET COUNT 395 10x3/uL (130-400); RBC 4.27 10x6/uL (4.20-6.10); WBC 13.4 10x3/uL (4.8-10.8)
[2017-03-08 05:41] LABS: MCV 82.9 fL (80.0-100.0)
[2017-03-08 06:11] LABS: ALKALINE PHOSPHATASE 76 U/L (46-116); ALT (SGPT) 18 U/L (10-68); CALC OSMOLALITY 269 mosm/kg (275-300); CARBON DIOXIDE 28.8 mmol/L (21.0-32.0); CHLORIDE - SERUM 98 mmol/L (98-107); CREATININE - SERUM 0.7 mg/dL (0.6-1.3); GLUCOSE 137 mg/dL (74-106); POTASSIUM - SERUM 4.3 mmol/L (3.5-5.1); PROTEIN - SERUM 6.5 g/dL (6.4-8.2); SODIUM 135 mmol/L (136-145); UREA NITROGEN 6 mg/dL (7-18); eGFR NON AFRICAN AMERICAN > 90 mL/min (90-120)
--- NOTE | 2017-03-08 07:15 | NUR ---
REPORT RECEIVED FROM AUDIO VISUAL PROJECT MANAGER NURSE. CALL LIGHT IN REACH.
[2017-03-08 09:27] VITALS: BP 107/74
--- NOTE | 2017-03-08 09:57 | NUR ---
ASSESSMENT COMPLETED. DILAUDID 8 MG AND VALIUM 5 MG PO WITH AM MEDS. HELD BP MED D/T LOW BP. FAMILY IN ROOM. CALL LIGHT IN REACH. WILL CONTINUE WITH PLAN OF CARE.
[2017-03-08] MEDS ORDERED: NICODERM C1 PATCH .3 TRANSDERM (10:00)
[2017-03-08] MEDS ORDERED: LISINOPRIL10 MG PO (10:01)
[2017-03-08] MEDS ORDERED: COLACE100 MG PO (10:03)
[2017-03-08] MEDS ORDERED: CREON (PANCRELI1 CAP PO (10:03)
[2017-03-08] MEDS ORDERED: SENNA8.6 MG PO (10:03)
[2017-03-08] MEDS ORDERED: ANUSOL-HC 2.5%30 GM RC (10:04)
[2017-03-08] MEDS ORDERED: MELATONIN 3 MG1 TAB PO (10:04)
[2017-03-08] MEDS ORDERED: FOLBEE PLUS TAB1 TAB PO (10:04)
[2017-03-08] MEDS ORDERED: Duragesic TRANSDERM (10:05)
[2017-03-08] MEDS ORDERED: DILAUDID2 MG PO (10:05)
--- NOTE | 2017-03-08 10:05 | NUR ---
D/C REASSESSMENT NOTE: PATIENT IS DISCHARGING HOME TODAY WITH HIS MOTHER/ MOTHER IS DRIVING/ PATIENT REFUSED HOME HEALTH AND MOTHER AGREED. CM EXPLAINED IF HE THINKS HE NEEDS IT ONCE HOME TO CALL HIS PCP AND THEY COULD HELP HIM.
--- NOTE | 2017-03-08 11:15 | NUR ---
AWAITING DC. DENIES NEEDS AT PRESENT.
--- NOTE | 2017-03-08 12:45 | NUR ---
PT AOX4 RESP EVEN AND NONLABORED PT DENIES NEEDS AT THIS TIME PT HERE FOR PAIN CONTROL AND ANTIBIOTICS FOR THIS VISIT. SRX2 BED AT LOWEST SETTING. CALL LIGHT WITHIN REACH WILL CONTINUE TO MONITOR
--- NOTE | 2017-03-08 12:50 | NUR ---
WEBB NEEDLE DC'D WITH TIP INTACT.
--- NOTE | 2017-03-08 12:55 | NUR ---
DC INSTRUCTIONS EVEN GIVEN TO PATIENT. VERBALIZED UNDERSTANDING. RX FOR DILAUDID AND FENTANYL PATCH HANDED TO PATIENT. DC'D TO VEHICLE VIA WC WITH .
== END 2017-03-08 12:56 | disposition home or self-care (01) | DRG 826 ==
LOC: D.ER 23:57 → D.MS 02-17 02:41
PROVIDERS: Emergency Medicine; Family Medicine; Internal Medicine Hematology & Oncology; Specialist; Surgery; ADMIT Family Medicine Adult Medicine
PROC: 0WBF3ZX Excision of Abdominal Wall, Percutaneous Approach, Diagnostic (ICD-10-PCS; principal; 2017-02-23 12:17)
DX: C79.89 Secondary malignant neoplasm of other specified sites (principal); E43 Unspecified severe protein-calorie malnutrition; K56.7 Ileus, unspecified; C25.9 Malignant neoplasm of pancreas, unspecified; F17.203 Nicotine dependence unspecified, with withdrawal; D62 Acute posthemorrhagic anemia; K59.00 Constipation, unspecified; R00.0 Tachycardia, unspecified; G89.29 Other chronic pain; F41.9 Anxiety disorder, unspecified

== ENCOUNTER 2017-03-21 06:28 | Inpatient (IN) | payer BC ==
[~2017-03-21] VITALS: Ht 180.3 cm; Wt 61.2 kg
[~2017-03-21 06:28] MED LIST changes: +ANUSOL-HC 2.5%30 GM RC; +COLACE100 MG PO; +CREON (PANCRELI1 CAP PO; +Duragesic TRANSDERM; +FOLBEE PLUS TAB1 TAB PO; +LISINOPRIL10 MG PO; +MELATONIN 3 MG1 TAB PO; +NICODERM C1 PATCH .3 TRANSDERM; +SENNA8.6 MG PO
[2017-03-21 07:42] LABS: BASOPHILS 0.1 % (0-2); EOSINOPHILS 0.2 % (0-7); HEMOGLOBIN 11.1 g/dL (13.5-17.5); IMMATURE GRANULOCYTES 0.4 % (0-5); LYMPHOCYTES 5.7 % (15-50); MCHC 33.6 g/dL (31.0-37.0); MCV 83.3 fL (80.0-100.0); MEAN PLATELET VOLUME 10.4 fL (7.4-10.4); MONOCYTES 5.5 % (2-11); NEUTROPHILS 88.1 % (40-80); RBC 3.96 10x6/uL (4.20-6.10); RDW 17.6 % (11.5-14.5); WBC 15.9 10x3/uL (4.8-10.8)
[2017-03-21 07:47] LABS: PLATELET COUNT 238 10x3/uL (130-400)
[2017-03-21 08:13] LABS: ALBUMIN 2.7 g/dL (3.4-5.0); ALKALINE PHOSPHATASE 89 U/L (46-116); ALT (SGPT) 15 U/L (10-68); CALC OSMOLALITY 265 mosm/kg (275-300); CARBON DIOXIDE 26.5 mmol/L (21.0-32.0); CHLORIDE - SERUM 94 mmol/L (98-107); CREATININE - SERUM 0.6 mg/dL (0.6-1.3); GLUCOSE 114 mg/dL (74-106); POTASSIUM - SERUM 3.7 mmol/L (3.5-5.1); PROTEIN - SERUM 6.1 g/dL (6.4-8.2); SODIUM 133 mmol/L (136-145); UREA NITROGEN 10 mg/dL (7-18); eGFR NON AFRICAN AMERICAN > 90 mL/min (90-120)
[2017-03-21 08:16] LABS: LIPASE 48 U/L (73-393)
[2017-03-21 10:15] LABS: APPEARANCE CLEAR (CLEAR); BILIRUBIN NEGATIVE (NEGATIVE); COLOR DK YELLOW (YELLOW); GLUCOSE NEGATIVE (NEGATIVE); KETONE LARGE mg/dL (NEGATIVE); LEUKOCYTE ESTERASE NEGATIVE (NEGATIVE); NITRITE NEGATIVE (NEGATIVE); PROTEIN NEGATIVE (NEGATIVE); SPECIFIC GRAVITY 1.015 (1.005-1.020)
[2017-03-21 10:16] LABS: BACTERIA FEW /hpf (NONE SEEN); EPITHELIAL CELLS 0-5 /hpf (0-5); MUCUS >1+ /lpf (NONE SEEN); WHITE CELLS - URINE RARE /hpf (0-5)
--- NOTE | 2017-03-21 19:15 | NUR ---
RECEIVED PATIENT FROM ER STAFF WITH GUESTS AT BEDSIDE. PATIENT DENIES NEEDS AT THIS TIME. BED IN LOWEST POSITION AND CALL LIGHT WITHIN REACH. ENCOURAGED THE PATIENT TO CALL IF HE HAS NEEDS.
[2017-03-21 19:48] LABS: BASOPHILS 0.1 % (0-2); EOSINOPHILS 0 % (0-7); HEMATOCRIT 37.7 % (42.0-54.0); HEMOGLOBIN 12.8 g/dL (13.5-17.5); IMMATURE GRANULOCYTES 0.4 % (0-5); MCH 28.6 pg (26.0-34.0); MCV 84.2 fL (80.0-100.0); MEAN PLATELET VOLUME 10.7 fL (7.4-10.4); MONOCYTES 2.7 % (2-11); NEUTROPHILS 93.8 % (40-80); RBC 4.48 10x6/uL (4.20-6.10); RDW 17.8 % (11.5-14.5); WBC 19.3 10x3/uL (4.8-10.8)
[2017-03-21 20:11] LABS: ALBUMIN 3.1 g/dL (3.4-5.0); ALKALINE PHOSPHATASE 96 U/L (46-116); ALT (SGPT) 18 U/L (10-68); CALC OSMOLALITY 271 mosm/kg (275-300); CALCIUM 8.6 mg/dL (8.5-10.1); CARBON DIOXIDE 26.4 mmol/L (21.0-32.0); CHLORIDE - SERUM 95 mmol/L (98-107); CREATININE - SERUM 0.5 mg/dL (0.6-1.3); GLUCOSE 133 mg/dL (74-106); PHOSPHOROUS 4.2 mg/dL (2.5-4.9); PRE-ALBUMIN 9.1 mg/dL (18.0-35.7); PROTEIN - SERUM 6.5 g/dL (6.4-8.2); SODIUM 136 mmol/L (136-145); UREA NITROGEN 8 mg/dL (7-18); eGFR NON AFRICAN AMERICAN > 90 mL/min (90-120)
--- NOTE | 2017-03-21 20:16 | NUR ---
SPOKE WITH DR. GARCIA WHO CONFIRMED THE PATIENT MAY BE ADVANCED TO A CLEAR LIQUID DIET AND MAY HAVE A 1MG DILAUDID BOLUS.
[2017-03-21 20:20] LABS: PLATELET COUNT 286 10x3/uL (130-400)
--- NOTE | 2017-03-21 21:35 | NUR ---
ADMINISTERED 1MG DILAUDID BOLUS DOSE FOR C/O 04/12 PAIN
[2017-03-22] VITALS (7 sets, daily range): BP systolic 100–114; BP diastolic 62–78; Ht 180.3 cm; Wt 61.2 kg
--- NOTE | 2017-03-22 00:55 | NUR ---
PATIENT REFUSED NG-TUBE PLACEMENT AND ACEVEDO PLACEMENT
--- NOTE | 2017-03-22 04:49 | NUR ---
PATIENT REFUSED SCD'S
--- NOTE | 2017-03-22 04:57 | NUR ---
PATIENT CONTINUES TO REFUSE NG-TUBE AND ACEVEDO
--- NOTE | 2017-03-22 05:16 | NUR ---
ADMINISTERED 1MG BOLUS DOSE
--- NOTE | 2017-03-22 07:30 | NUR ---
AWAKE AND ALERT. ORIENTED X3. C/O INCREASED PAIN THIS AM. WILL ADDRESS WITH MD. LUNGS HAVE CRACKLES AND WHEEZES THROUGHOUT LUNG ANDERSON, OCCASSIONAL NON PORDUCTIVE COUGH NOTED. SKIN IS INTACT WITHOUT REDNESS. WILL NEED TO TURN FREQUENTLY TO KEEP SKIN INTEGRITTY. IV TO LEFT WRIST IS PATENT WITHOUT REDNESS AT INSERTION SITE. RIGHT PORT IS PATENT WITHOUT REDNESS AT INSERTION SITE. DENIES NEEDS.
--- NOTE | 2017-03-22 09:30 | NUR ---
DR CUNNINGHAM INCREASED DOSAGE ON SECURITY EXPERT AT THIS TIME. WILL CONTINUE TO MONITOR.
[2017-03-22] MEDS ORDERED: DURAGESIC1 PATCH .1 TRANSDERM (09:42)
--- NOTE | 2017-03-22 10:00 | NUR ---
REPORTS SLIGHT RELIEF WITH NEW DOSE ON LITIGATION LEGAL SECRETARY. WILL CONTINUE TO MONITOR.
--- NOTE | 2017-03-22 12:15 | NUR ---
REFUSED LUNCH TRAY. JUST NOT HUNGRY.
--- NOTE | 2017-03-22 15:00 | NUR ---
NO RESULTS YET FROM COLACE AND DULCOLAX SUPP. WILL CONTINUE TO MONITOR.
--- NOTE | 2017-03-22 16:48 | NUR ---
Patient Name: GILDARDO VASQUEZ Admission Status: ER Accout number: [id number] Admission Date: 03-21-2017 : 1975 Admission Diagnosis:UNSPECIFIED ABDOMINAL PAIN Attending: LANCE Current LOS: 1 Anticipated DC Date: 03-26-2017 Planned Disposition: Home Primary Insurance: [employer] [facility] Discharge Planning Comments: CM MET WITH PATIENT REGARDING D/C NEEDS AND PLANS. PATIENT STATED HE LIVES WITH HIS MOM AND FAMILY WILL DRIVE HIM HOME AT DISCHARGE. PATIENT HAS 3 STEPS W/RAILS AND NO STAIRS INSIDE. PATIENT STATED HE IS INDEPENDENT WITH HIS CARE AND HAS A WALKER, AND SHOWER CHAIR AT HOME. PATIENT STATED HIS PCP IS DR. ALLEN AND USES [facility]. PATIENT DID AGREE TO HOME HEALTH THIS VISIT AND WILL TALK WITH HIS MOTHER BEFORE CHOOSING. CM WILL CONTINUE TO FOLLOW PATIENT WITH D/C NEEDS AND PLANS. PCP DR. ALLEN [facility] [phone] [phone] Taxicab Driver: Eloisa Castano Is the patient Alert and Oriented? Yes 0 * How many steps to enter\exit or inside your home? 3 W/RAILS 0 * PCP DR. ALLEN 0 * [facility] * Preadmission Environment Home with Family 0 * ADLs Independent 0 * Equipment Shower Chair Walker 0 * List name and contact numbers for known caregivers / representatives who currently or will assist patient after discharge: [facility] [phone] 0 * Community resources currently utilized None 0 * Additional services required to return to the preadmission environment? Yes 0 * Can the patient safely return to the preadmission environment? Yes 0 * Has this patient been hospitalized within the prior 30 days at any hospital? Yes 0 Grand Total: 0
--- NOTE | 2017-03-22 18:50 | NUR ---
REFUSED SUPPER TRAY. DENIES NEEDS. NO CHANGES NOTED AT THIS TIEM.
--- NOTE | 2017-03-22 23:29 | NUR ---
ASSESSED AT THE BEGINNING OF THE SHIFT. PT IS ALERT AND ORIENTED, ABLE TO VERBALIZE NEEDS. HE HAS BEEN UP TO THE BATHROOM AD JAMAL AND IS ABLE TO TURN AND REPOSITION HIMSELF. TELEMETRY IS IN PLACE AND HE IS RUNNING SINUS TACH AT WHICH ONE TIME THE MOMITOR CALLED AND STATED HE WAS UP TO 150'S WHILE HE WAS IN THE BATHROOM. HE CAME DOWN TO 120'S WHEN BACK IN BED. HE TOOK ALL HIS MEDS AND HAS A CHILDRENS CLUB ATTENDANT FOR PAIN CONTROL. THE BED IS LOW, RAILS UP X'S 2 WITH THE CALL LIGHT AT HAND.
[2017-03-23 04:00] VITALS: BP 93/66
[2017-03-23 06:19] LABS: BASOPHILS 0.1 % (0-2); EOSINOPHILS 0.9 % (0-7); HEMATOCRIT 35.4 % (42.0-54.0); HEMOGLOBIN 11.8 g/dL (13.5-17.5); IMMATURE GRANULOCYTES 0.6 % (0-5); LYMPHOCYTES 12.5 % (15-50); MCHC 33.3 g/dL (31.0-37.0); MCV 83.9 fL (80.0-100.0); MONOCYTES 9.4 % (2-11); NEUTROPHILS 76.5 % (40-80); RBC 4.22 10x6/uL (4.20-6.10); RDW 18.1 % (11.5-14.5)
[2017-03-23 06:32] LABS: PLATELET COUNT 450 10x3/uL (130-400)
[2017-03-23 06:47] LABS: ALBUMIN 2.7 g/dL (3.4-5.0); ALKALINE PHOSPHATASE 84 U/L (46-116); ALT (SGPT) 19 U/L (10-68); CALC OSMOLALITY 271 mosm/kg (275-300); CALCIUM 8.5 mg/dL (8.5-10.1); CARBON DIOXIDE 25.8 mmol/L (21.0-32.0); CHLORIDE - SERUM 98 mmol/L (98-107); CREATININE - SERUM 0.6 mg/dL (0.6-1.3); GLUCOSE 101 mg/dL (74-106); POTASSIUM - SERUM 3.7 mmol/L (3.5-5.1); SODIUM 136 mmol/L (136-145); eGFR NON AFRICAN AMERICAN > 90 mL/min (90-120)
[2017-03-23 06:54] LABS: UREA NITROGEN 12 mg/dL (7-18)
--- NOTE | 2017-03-23 08:07 | NUR ---
AWAKE AND ALERT. ORIENTED X3. CONTINUES WITH C/O ABDOMINAL PAIN LEVEL 8. WILL MONITOR. LUNGS ARE DIMINISHED THROUGHOUT BUT NO CRACKLES NOTED THIS AM. DENIES PRODUCTIVE COUGH. SKIN IS INTACT WITHOUT REDNESS. ENCOURAGED TO CONTINUE TURNING FREQUENTLY. SL TO LEFT WRIST PATENT WITHOUT REDNESS AT INSERTION SITE. RIGHT PORT PATENT WITHOUT REDNESS AT INSERTION SITE. DENIES NEEDS.
[2017-03-23 08:55] VITALS: BP 106/70
--- NOTE | 2017-03-23 10:00 | NUR ---
DR CUNNINGHAM HERE. NEW ORDERS TO INCREASE FURNITURE REFINISHER GIVEN.
--- NOTE | 2017-03-23 12:00 | NUR ---
REPORTS SOME RELIEF WITH INCREASED DOSE OF DILAUDID. WILL CONTINUE TO MONITOR.
[2017-03-23 13:07] VITALS: BP 103/73
[2017-03-23 16:18] VITALS: BP 119/77
--- NOTE | 2017-03-23 17:58 | NUR ---
REFUSED SUPPER AT THIS TIME. REPORTS PAIN IMPROVED AND TOLERABLE AT THIS TIME. [facility] DENIES NEEDS. NO CHANGES NOTED. SL TO LEFT WRIST D/C WITH CATHETER INTACT.
[2017-03-23 20:00] VITALS: BP 138/106
[2017-03-24] VITALS: BP 108/79
[2017-03-24 04:00] VITALS: BP 115/80
[2017-03-24 05:58] LABS: BASOPHILS 0.2 % (0-2); EOSINOPHILS 0.9 % (0-7); HEMATOCRIT 34.3 % (42.0-54.0); HEMOGLOBIN 11.6 g/dL (13.5-17.5); IMMATURE GRANULOCYTES 0.9 % (0-5); LYMPHOCYTES 11.5 % (15-50); MCH 28.4 pg (26.0-34.0); MCHC 33.8 g/dL (31.0-37.0); MCV 84.1 fL (80.0-100.0); MEAN PLATELET VOLUME 9.5 fL (7.4-10.4); MONOCYTES 9.9 % (2-11); NEUTROPHILS 76.6 % (40-80); PLATELET COUNT 473 10x3/uL (130-400); RBC 4.08 10x6/uL (4.20-6.10); RDW 18.1 % (11.5-14.5)
[2017-03-24 06:19] LABS: ALBUMIN 2.6 g/dL (3.4-5.0); ALKALINE PHOSPHATASE 83 U/L (46-116); ALT (SGPT) 18 U/L (10-68); BILIRUBIN - TOTAL 0.73 mg/dL (0.2-1.3); CALC OSMOLALITY 270 mosm/kg (275-300); CALCIUM 8.1 mg/dL (8.5-10.1); CARBON DIOXIDE 28.2 mmol/L (21.0-32.0); CHLORIDE - SERUM 98 mmol/L (98-107); GLUCOSE 96 mg/dL (74-106); POTASSIUM - SERUM 3.7 mmol/L (3.5-5.1); SODIUM 136 mmol/L (136-145); UREA NITROGEN 11 mg/dL (7-18)
[2017-03-24 06:31] LABS: CREATININE - SERUM 0.4 mg/dL (0.6-1.3); eGFR NON AFRICAN AMERICAN > 90 mL/min (90-120)
--- NOTE | 2017-03-24 08:52 | NUR ---
SCHEDULED MEDICATIONS ADMINISTERED AT THIS TIME. ASSESSMENT PERFORMED PER FLOWSHEET. RIGHT CHEST PORT PATENT WITH NO S/S OF INFILTRATION. RESPIRATIONS EVEN AND NON LABORED AND FAMILY AT BEDSIDE. CALL LIGHT IN REACH, WILL CONTINUE WITH PLAN OF CARE.
[2017-03-24 09:13] VITALS: BP 111/84
--- NOTE | 2017-03-24 11:09 | NUR ---
PRN SIMETHICON ADMINISTERED FOR PT'S COMPLAINTS OF GAS. FAMILY REMAINS AT BEDSIDE. CALL LIGHT IN REACH, WILL CONTINUE WITH PLAN OF CARE.
[2017-03-24 13:11] VITALS: BP 126/70
[2017-03-24] MEDS ORDERED: Duragesic TRANSDERM (14:15)
--- NOTE | 2017-03-24 18:03 | NUR ---
Late Entry 1130 CM received telephone call regarding an order for [facility] consult. I had a telephone call out to [facility]. Lucinda is [facility] contracted provider for [facility] services. Patient wishes to stay at [facility]. TC to [facility]. Received CB from Chelsea, the on-call nurse. She will notify the sales service professional nurse for . Hospice referral packet prepared. Primary nurse advised. Patient visited by [facility] nurse. She spoke with the patient regarding [facility]. He wants to discuss it with his family. Nurse will return tomorrow to follow up.
[2017-03-24 18:05] VITALS: BP 101/76
[2017-03-24 20:00] VITALS: BP 93/71
[2017-03-25] VITALS: BP 95/78
[2017-03-25 04:00] VITALS: BP 108/80
[2017-03-25 05:30] LABS: BASOPHILS 0.2 % (0-2); EOSINOPHILS 0.4 % (0-7); HEMATOCRIT 35.1 % (42.0-54.0); HEMOGLOBIN 11.7 g/dL (13.5-17.5); IMMATURE GRANULOCYTES 0.5 % (0-5); LYMPHOCYTES 11.2 % (15-50); MCH 28.1 pg (26.0-34.0); MCHC 33.3 g/dL (31.0-37.0); MCV 84.2 fL (80.0-100.0); MEAN PLATELET VOLUME 9.5 fL (7.4-10.4); MONOCYTES 10.3 % (2-11); NEUTROPHILS 77.4 % (40-80); PLATELET COUNT 543 10x3/uL (130-400); RBC 4.17 10x6/uL (4.20-6.10); RDW 18.2 % (11.5-14.5); WBC 10.9 10x3/uL (4.8-10.8)
[2017-03-25 06:02] LABS: ALBUMIN 2.7 g/dL (3.4-5.0); ALKALINE PHOSPHATASE 86 U/L (46-116); ALT (SGPT) 18 U/L (10-68); BILIRUBIN - TOTAL 0.86 mg/dL (0.2-1.3); CALC OSMOLALITY 266 mosm/kg (275-300); CALCIUM 8.3 mg/dL (8.5-10.1); CARBON DIOXIDE 24.4 mmol/L (21.0-32.0); CHLORIDE - SERUM 97 mmol/L (98-107); CREATININE - SERUM 0.4 mg/dL (0.6-1.3); GLUCOSE 100 mg/dL (74-106); POTASSIUM - SERUM 3.9 mmol/L (3.5-5.1); PROTEIN - SERUM 6.2 g/dL (6.4-8.2); SODIUM 134 mmol/L (136-145); UREA NITROGEN 10 mg/dL (7-18); eGFR NON AFRICAN AMERICAN > 90 mL/min (90-120)
--- NOTE | 2017-03-25 07:34 | NUR ---
AM ROUNDS- PT IN BED, WITH EYES CLOSED, BED LOW AND WHEELS LOCKED. BEDSIDE RAILS X2, CALL LIGHT IN REACH, RT PORT INFUSING NS AT KVO AND DILAUDID NET WPF DEVELOPER 0.2MG CONT. AND O.5MG Q10MIN NO LOCKOUT. NAD NOTED, CALL LIGHT IN REACH, NAD NOTED, WILL CONTINUE TO MONITOR.
--- NOTE | 2017-03-25 09:03 | NUR ---
AM MEDS GIVEN. NEW DYE HOUSE WHEEL OPERATOR DILAUDID SYRINGE PLACED, PT DENIES ANY NEEDS AT THIS TIME. FAMILY AT BEDSIDE, CALL LIGHT IN REACH, NAD NOTED, WILL CONTINUE TO MONITOR.
[2017-03-25 09:12] VITALS: BP 114/80
--- NOTE | 2017-03-25 10:52 | NUR ---
DR. HANKINS NOTIFIED THIS RN, THAT PT STATED THAT HE IS READY FOR HOSPICE NOW. RECEIVED CALL FROM DR. CUNNINGHAM AND NOTIFIED HER ABOUT PT'S DECISION. NOTIFIED CORROSION TECHNICIAN DIAMOND ABOUT PT WANTING HOSPICE NOW. DIAMOND STATED THAT HOSPICE NURSE IS COMING IN TODAY TO SEE PT.
--- NOTE | 2017-03-25 11:38 | NUR ---
PATIENT ADVISED NURSING STAFF HE WANTS TO SIGN ON TO [facility]. cm TELEPHONED [facility] TO ADVISE OF DECISION. RECEIVED CB FROM ANGELIQUE. THEN SPOKE WITH LATESHA. SHE WILL BE IN TO [facility] THIS AFTERNOON.
== END 2017-03-25 16:28 | disposition hospice, inpatient (51) | DRG 389 ==
LOC: D.ER 06:28 → D.MS 11:36 → D.SDCHOLD 11:36 → OBSVTIME 11:36 → D.MS 18:41
PROVIDERS: Family Medicine; Surgery; ADMIT Family Medicine
DX: K56.69 Other intestinal obstruction (principal); C25.9 Malignant neoplasm of pancreas, unspecified; C78.7 Secondary malignant neoplasm of liver and intrahepatic bile duct; C78.6 Secondary malignant neoplasm of retroperitoneum and peritoneum; D62 Acute posthemorrhagic anemia; F17.203 Nicotine dependence unspecified, with withdrawal; G89.3 Neoplasm related pain (acute) (chronic); D72.829 Elevated white blood cell count, unspecified; R00.0 Tachycardia, unspecified

== ENCOUNTER 2017-03-25 16:41 | Inpatient (IN) | payer OTHER ==
[~2017-03-25] VITALS: Ht 180.3 cm; Wt 63.6 kg
[~2017-03-25 16:41] MED LIST changes: +DURAGESIC1 PATCH .1 TRANSDERM
--- NOTE | 2017-03-25 17:28 | NUR ---
SYRINGE CHANGE FOR DILAUDID LACTATION CONSULTANT. ALSO APPLIED FENTANYL PATCH TO RIGHT UPPER ARM. PT IN BED, DENIES ANY NEEDS AT THIS TIME. CALL LIGHT IN REACH, FAMILY AT BEDSIDE, NAD NOTED, WILL CONTINUE TO MONITOR.
[2017-03-25 18:55] VITALS: Ht 180.3 cm; Wt 63.6 kg
--- NOTE | 2017-03-25 19:20 | NUR ---
RECIEVED SHIFT REPORT. PT IS LYING IN BED. ALERT AND ORIENTED AND ABLE TO VERBALIZE NEEDS. IV IS PATENT AND FLUIDS ARE RUNNING PER ORDER. PT IS AMBULATORY BUT WAS INSTRUCTED TO CALL FOR ANY ASSISTANCE NEEDED. PT STATES PAIN STAYS 7/10 WITH MIDDLE SCHOOL SPECIAL EDUCATION TEACHER PUMP. NO NEEDS ARE VERBALIZED AT THIS TIME. WILL CONTINUE TO MONITOR. SIDE RAILS ARE UP X 2. BED IS IN LOWEST POSITION. CALL LIGHT IS WITHIN REACH.
[2017-03-25 20:00] VITALS: BP 107/51
--- NOTE | 2017-03-25 20:18 | NUR ---
SHIFT ASSESSMENT COMPLETED. NIGHT MEDS GIVEN WITH NO PROBLEMS. NO NEEDS ARE VOICED. WILL MONITOR. SIDE RAILS X 2. BED LOW. CALL LIGHT IN REACH.
--- NOTE | 2017-03-26 07:30 | NUR ---
REPORT RECIEVED, ASSUMED CARE. PT IN BED, RESTING. IV INTACT, CALL LIGHT WITHIN REACH.
[2017-03-26 08:25] VITALS: BP 94/69
--- NOTE | 2017-03-26 10:00 | NUR ---
ASSESSMENT COMPLETE, VITAL SIGNS STABLE. PT PAIN 6/10. MORPHINE WAREHOUSE TEAM LEADER INFUSING, IV INTACT. FAMILY AT BEDSIDE, CALL LIGHT WITHIN REACH.
--- NOTE | 2017-03-26 13:30 | NUR ---
PATIENT CUPROUS CHLORIDE HELPER PUMP CHANGED ORDERED. IV INTACT. FAMILY AT BEDSIDE. CALL LIGHT WITHIN REACH.
--- NOTE | 2017-03-26 17:30 | NUR ---
NOTIFIED HOSPICE NURSE ABOUT PATIENT'S NEW BEAD FILLER ORDER NOT WORKING WITH PUMP. BEAD FILLER WILL ONLY GIVE UP TO 4 MG CONTINOUS DUE TO SETTINGS. ANNELIESE VIZCAINO [facility] HOSPICE NURSE CALLED DR. TRIPLETT AND LEFT HIM A MESSAGAE ON VOICEMAIL TO CALL ME OR HER. PATIENT IN BED WITH IV INTACT. NO COMPLAINTS OR SIGNS OF DISTRESS. CALL LIGHT WITHIN REACH.
[2017-03-26 19:00] VITALS: BP 101/81
--- NOTE | 2017-03-26 19:15 | NUR ---
RECIEVED SHIFT REPORT. PT IS LYING IN BED. ALERT AND ORIENTED AND ABLE TO VERBALIZE NEEDS. IV IS PATENT AND FLUIDS ARE RUNNING PER ORDER. PT IS AMBULATORY BUT WAS INSTRUCTED TO CALL FOR ANY ASSISTANCE NEEDED. PT STATES PAIN IS 6/10. NO NEEDS ARE VERBALIZED AT THIS TIME. WILL CONTINUE TO MONITOR. SIDE RAILS ARE UP X 2. BED IS IN LOWEST POSITION. CALL LIGHT IS WITHIN REACH.
--- NOTE | 2017-03-26 20:08 | NUR ---
SHIFT ASSESSMENT COMPLETED. NIGHT MEDS GIVEN WITH NO PROBLEMS. PT REFUSED SCHEDULED MIRALAX. PT C/O NAUSEA. ADMINISTERED PRESCRIBED PRN ZOFRAN PER ORDER. DENIES FURTHER NEEDS. WILL MONITOR. SIDE RAILS X 2. BED LOW. CALL LIGHT IN REACH.
--- NOTE | 2017-03-26 22:48 | NUR ---
PT WITH NAUSEA. PRN ZOFRAN ALREADY ADMINISTERED BUT PT STATES IT IS NOT WORKING. CALL PLACED TO ANSWERING SERVICE FOR FURTHER ORDERS.
--- NOTE | 2017-03-26 23:05 | NUR ---
CALL RETURNED FROM TASSEL MAKING MACHINE OPERATOR LATESHA. NEW ORDERS RECIEVED.
--- NOTE | 2017-03-27 07:15 | NUR ---
REPORT RECIEVED, CARE ASSUMED. PT LYING IN BED, ALERT AND ABLE TO VERBALIZE NEEDS. IV PATENT, INTACT AND RUNNING ORDERED. PAIN 7/10 WITH PRICING LEAD PUMP. NO NEEDS AT THIS TIME. CALL LIGHT WITHIN REACH.
[2017-03-27 08:30] VITALS: BP 105/76
--- NOTE | 2017-03-27 11:01 | NUR ---
PT RESTING, EYES CLOSED. AROUSES EASILY. FAMILY AT BEDSIDE. CALL LIGHT WITHIN REACH.
--- NOTE | 2017-03-27 13:46 | NUR ---
SPOKE WITH HOSPICE NURSE, ELADIA NICOLAS, FENTYNL PATCH INCREASED TO 150MCG PER DR. TRIPLETT.
--- NOTE | 2017-03-27 15:59 | NUR ---
SPOKE WITH HOSPICE NURSE ELADIA NICOLAS, MULTIVITAMIN PO DAILY AND PROTEIN SHAKES WITH ALL MEALS ORDERED PER DR. TRIPLETT.
--- NOTE | 2017-03-27 18:50 | NUR ---
PT RESTING IN ROOM, EASILY AROUSED. IV INTACT. EDUCATIONAL ASSISTANT TEACHER RUNNING ORDERED. NO COMPLAINTS AT THIS TIME. CALL LIGHT WITHIN REACH.
[2017-03-27 19:00] VITALS: BP 113/75
--- NOTE | 2017-03-27 19:10 | NUR ---
RECIEVED SHIFT REPORT. PT IS LYING IN BED. ALERT AND ORIENTED AND ABLE TO VERBALIZE NEEDS. IV IS PATENT AND FLUIDS ARE RUNNING PER ORDER. PT IS AMBULATORY BUT WAS INSTRUCTED TO CALL FOR ANY ASSISTANCE NEEDED. PT STATES PAIN IS 5/10 WITH AIRBORNE MISSIONS SYSTEMS PUMP. NO NEEDS ARE VERBALIZED AT THIS TIME. WILL CONTINUE TO MONITOR. SIDE RAILS ARE UP X 2. BED IS IN LOWEST POSITION. CALL LIGHT IS WITHIN REACH.
--- NOTE | 2017-03-27 20:16 | NUR ---
SHIFT ASSESSMENT COMPLETED. NIGHT MEDS GIVEN WITH NO PROBLEMS. PT REFUSED SCHEDULED MIRALAX. NO NEEDS ARE VOICED. WILL MONITOR. SIDE RAILS X 2. BED LOW. CALL LIGHT IN REACH.
--- NOTE | 2017-03-28 07:00 | NUR ---
PT REC'D FROM FATUMA LUBIN. RESTING IN BED WITH EYES CLOSED. NO SIGNS OF DISTRESS. RESP EVEN AND UNLABORED. BED LOW, CALL LIGHT IN REACH, DENIES NEEDS. CPOC.
--- NOTE | 2017-03-28 08:00 | NUR ---
MORNING MEDS PASSED AT THIS TIME. REFUSING PO MEDS. NICOTINE PATCH APPLIED TO L SHOULDER. WASH PLANT OPERATOR SYRINGE CHANGED ALONG WITH TUBING. PRN ATIVAN ADMINISTERED PER PT REQUEST. WILL REASSESS. BED LOW, CALL LIGHT IN REACH, DENIES NEEDS. CPOC.
[2017-03-28 08:18] VITALS: BP 104/70
--- NOTE | 2017-03-28 11:33 | NUR ---
PT RESTING IN BED WITH EYES CLOSED. NO SIGNS OF DISTRESS. RESP EVEN AND UNLABORED. BED LOW, CALL LIGHT IN REACH, DENIES NEEDS. CPOC.
--- NOTE | 2017-03-28 12:59 | NUR ---
PT AOX4 RESP EVEN AND NONLABORED IV TO RIGHT PORT PATENT AND INTACT AT THIS TIME PT C/O ANXIETY AND WANTS PRN ATIVAN. SRX2 BED AT LOWEST SETTING CALL LIGHT WITHIN REACH WILL CONTINUE TO MONITOR. PT HERE ON HOSPICE FOR PANCREATIC [facility]ER FOR THIS VISIT
[2017-03-28 20:00] VITALS: BP 126/82
--- NOTE | 2017-03-28 20:44 | NUR ---
PATIENT RESTING IN BED WITH NO VISIBLE SIGNS OF DISTRESS. ADMINISTERED MEDS PER ORDERS. PATIENT DENIES OTHER NEEDS AT THIS TIME. BED IN LOWEST POSITION AND CALL LIGHT WITHIN REACH. ENCOUARAGED THE PATIENT TO CALL IF HE HAS FURTHER NEEDS.
--- NOTE | 2017-03-29 07:10 | NUR ---
PT REC'D FROM FATUMA SANCHEZ. RESTING IN BED WITH EYES CLOSED. NO SIGNS OF DISTRESS. RESP EVEN AND UNLABORED. BED LOW, CALL LIGHT IN REACH, DENIES NEEDS. CPOC.
[2017-03-29 07:55] VITALS: BP 107/70
--- NOTE | 2017-03-29 08:50 | NUR ---
MORNING MEDS PASSED AT THIS TIME. PO MEDS REFUSED. PRN ATIVAN ADMINISTERED PER PT REQUEST. AAOX4. RATING CURRENT PAIN ALL OVER 5/10. WILL REASSESS. DILAUDID SYRINGE CHANGED AT THIS TIME. BED LOW, CALL LIGHT IN REACH, DENIES NEEDS. CPOC.
--- NOTE | 2017-03-29 10:07 | NUR ---
AWAKE AND ALERT AT THIS TIME WITH CONVEYOR FEEDER IN USE. FAMILY AT BEDSIDE. RESPIRATIONS EVEN AND NON LABORED. CALL LIGHT IN REACH, WILL CONTINUE WITH PLAN OF CARE.
--- NOTE | 2017-03-29 10:48 | NUR ---
pt refused to have port dressing changed yesterday as per protocol. allowed this nurse to changed today per policy. tolerated well without complaints. dated dressing.
--- NOTE | 2017-03-29 11:40 | NUR ---
PRN ATIVAN ADMINISTERED PER PT REQUEST. DILAUDID STUDIO COORDINATOR SYRINGE CHANGED. BED LOW, CALL LIGHT IN REACH, DENIES NEEDS. CPOC.
--- NOTE | 2017-03-29 13:05 | NUR ---
PT RESTING IN BED WITH MOTHER AT BEDSIDE. NO COMPLAINTS. BED LOW, CALL LIGHT IN REACH, DENIES NEEDS. CPOC.
--- NOTE | 2017-03-29 13:45 | NUR ---
PRN ATIVAN ADMINISTERED AT THIS TIME. DILAUDID MUSIC ARRANGER SYRINGE CHANGED WELL. BED LOW, CALL LIGHT IN REACH, DENIES NEEDS. CPOC.
[2017-03-29 20:00] VITALS: BP 102/71
--- NOTE | 2017-03-30 02:10 | NUR ---
PT RESTING IN BED. COMFORT MEASURES. MANAGER MUSIC FOR PAIN CONTROL CONTINUOUS. GIVING ATIVAN NEEDED. WILL CONTINUE TO MONITOR.
--- NOTE | 2017-03-30 07:00 | NUR ---
PT REC'D FROM FATUMA SANCHEZ. RESTING IN BED WITH EYES CLOSED. NO SIGNS OF DISTRESS. RESP EVEN AND UNLABORED. BED LOW, CALL LIGHT IN REACH, CPOC.
--- NOTE | 2017-03-30 07:45 | NUR ---
DILAUDID NEWS DIRECTOR SYRINGE CHANGED AT THIS TIME. SETTINGS KEPT THE SAME ORDERED.
[2017-03-30 08:25] VITALS: BP 104/74
--- NOTE | 2017-03-30 09:00 | NUR ---
PRN ATIVAN ADMINISTERED PER PT REQUEST. MOTHER AT BEDSIDE. BED LOW, CALL LIGHT IN REACH, DENIES NEEDS. CPOC.
--- NOTE | 2017-03-30 10:00 | NUR ---
SAFE DEPOSIT BOX RENTAL CLERK IN USE FOR PAIN CONTROL. DENIES NEEDS AT THIS TIME. FAMILY AT BEDSIDE. WILL CONTINUE WITH PLAN OF CARE.
--- NOTE | 2017-03-30 11:15 | NUR ---
PRN ATIVAN ADMINISTERED PER PT REQUEST. NO COMPLAINTS. BED LOW, CALL LIGHT IN REACH, DENIES NEEDS. FAMILY AT BEDSIDE. UPDATE PROVIDED.
--- NOTE | 2017-03-30 13:18 | NUR ---
PRN ATIVAN ADMINISTERED AT THIS TIME. DILAUDID MILLER WOOD FLOUR SYRINGE CHANGED. HOSPICE NURSE AT BEDSIDE. UPDATE PROVIDED.
--- NOTE | 2017-03-30 17:09 | NUR ---
DILAUDID HAND INSERTER OPERATOR SYRINGE CHANGED AND PRN ATIVAN ADMINISTERED FOR COMFORT PER PT REQUEST. BED LOW, CALL LIGHT IN REACH, DENIES NEEDS. CPOC.
[2017-03-30 20:00] VITALS: BP 111/81
--- NOTE | 2017-03-31 07:45 | NUR ---
PT AOX4 RESP EVEN AND NONLABORED PT DENIES NEEDS AT THIS TIME IV TO RIGHT CHEST WALL PATENT AND INTACT AT THIS TIME SRX2 BED AT LOWEST SETTING WILL CONTINUE TO MONITOR
[2017-03-31 08:02] VITALS: BP 104/70
[2017-03-31 20:00] VITALS: BP 114/74
--- NOTE | 2017-04-01 04:22 | NUR ---
ASSESSED, PT IS ASLEEP WITH ESY RESPIRATIONS AND NO DISTRESS NOTED. HIS LIGHT IS ON AND HE HAS HIS SUPERVISOR FRAME ASSEMBLY IN HAND. THE BED IS LOW, RAILS UP X'S 2 WITH THE CALL LIGHT AT HAND.
--- NOTE | 2017-04-01 07:45 | NUR ---
PT AOX4 RESP EVEN AND NONLABORED PT DENIES NEEDS AT THIS TIME IV TO RIGHT CHEST PORT PATENT AND INTACT AT THIS TIME SRX2 BED AT LOWEST SETTING CALL LIGHT WITHIN REACH WILL CONTINUE TO MONITOR
[2017-04-01 11:35] VITALS: BP 106/66
--- NOTE | 2017-04-01 19:16 | NUR ---
PT SITTING UP IN BED VISITING WITH SPOUSE, BED IN LOW POSITION, ASKED WHEN LAST DOSE OF ATIVAN WAS GIVEN TILD I WOULD FIND OUT AND BRING SOON POSSIBLE, CALL LIGHT IN REACH
[2017-04-01 20:00] VITALS: BP 93/71
--- NOTE | 2017-04-02 01:13 | NUR ---
PT LYING IN BED WITH CALL LIGHT IN REACH, EVEN RISE AND FALL OF CHEST. NO SIGNS OF DISTRESS, CONTINUE WITH PLAN OF CARE
--- NOTE | 2017-04-02 03:45 | NUR ---
EYES CLOSED RESPIRATIONS WITH EASE AND UNLABORED. SR UP X2 CALL LIGHT WITHIN REACH.
--- NOTE | 2017-04-02 07:30 | NUR ---
COMPLAINTS OF SEVERE PAIN, CONFUSED THIS AM, BED LOWEST POSITION, CALL LIGHT IN REACH, WILL CONTINUE TO MONITOR
[2017-04-02 08:12] VITALS: BP 99/71
--- NOTE | 2017-04-02 08:23 | NUR ---
ATIVAN 2MG GIVEN AT 0745, PT CAN NOT REMEMBER GETTING HIS DOSE
--- NOTE | 2017-04-02 11:15 | NUR ---
PT CONFUSED AT THIS TIME. SUPERINTENDENT POWER IN USE FOR PAIN CONTROL. FAMILY AT BEDSIDE. WILL CONTINUE COMFORT MEASURES.
--- NOTE | 2017-04-02 15:41 | NUR ---
FENTANYL PATCHES ON BOTH UPPER ARMS CHANGED FROM 75MCG EACH TO 100MCG EACH, DENIES NEEDS, BED LOWEST POSITION, WILL CONTINUE TO MONITOR
--- NOTE | 2017-04-02 19:18 | NUR ---
PT IS SITTING IN BED AT HIGH FOWLERS. EYES CLOSED WITH EVEN RISE AND FALL OF CHEST.AWAKENS EASILY TO TOUCH AND SOUND OF VOICE. BED IS IN LOW POSITION, NO SIGNS OF DISTRESS, CALL LIGHT WITHIN REACH. CONTINUE W/ COMFORT CARE
[2017-04-02 20:00] VITALS: BP 110/82
--- NOTE | 2017-04-03 00:24 | NUR ---
PATIENT PUSHED CALL LIGHT, ANSWERED CALL LIGHT. PATIENT REQUESTED ATIVAN AND MORPHINE. EXPLAINED TO PATIENT THAT HE HAD ATIVAN ABOUT AN HOUR AGO AND HE CAN HAVE IT AGAIN AT 0127, PATIENT VERBALIZED UNDERSTANDING. ADMINISTERED MORPHINE ORAL. PATIENT DENIES NEEDS. BED IN LOWEST POSITION, CALL LIGHT IN REACH. BED RAILS UP X'S 2. HOB 45 DEGREES.
--- NOTE | 2017-04-03 07:00 | NUR ---
REPORT RECIEVED ASSUMED CARE. PATIENT IN BED WITH IV INTACT. NO COMPLAINTS AT THIS TIME. EYES CLOSED RESTING. CALL LIGHT WITHIN REACH.
[2017-04-03 08:22] VITALS: BP 97/72
--- NOTE | 2017-04-03 13:20 | NUR ---
NEW ORDERS RECIEVED FROM DR. TRIPLETT BY ELADIA VASQUEZ RN AND CARRIED OUT.
--- NOTE | 2017-04-03 15:15 | NUR ---
PATIENT IN BED WITH EYES CLOSED RESTING QUIETLY. IV INTACT. CALL LIGHT WITHIN REACH.
[2017-04-03 16:26] VITALS: BP 113/83
--- NOTE | 2017-04-03 17:00 | NUR ---
PATIENT IN BED RESTING QUIETLY. IV INTACT. CALL LIGHT WITHIN REACH. FAMILY AT BEDSIDE.
--- NOTE | 2017-04-03 18:55 | NUR ---
PATIENT IN BED EYES CLOSED RESTING QUIETLY AT THIS TIME. NO COMPLAINTS AT THIS TIME. CALL LIGHT WITHIN REACH.
--- NOTE | 2017-04-03 19:36 | NUR ---
PT IS LYING IN BED IN HIGH FOWLERS RESTING , EYES ARE CLOSED NO SIGNS OF DISTRESS, BED IN LOW POSITION
[2017-04-03 20:00] VITALS: BP 107/72
--- NOTE | 2017-04-04 03:27 | NUR ---
ADMINISTERED PRN ATIVAN AND MORPHINE AT THIS TIME. PT RESTING WITH SHALLOW BREATHING. NO FURTHER NEEDS ARE VOICED. SIDE RAILS X 2. BED IS LOW. CALL LIGHT IN REACH.
--- NOTE | 2017-04-04 07:00 | NUR ---
PT REC'D FROM FATUMA CABRAL. RESTING IN BED WITH MOTHER AT BEDSIDE. EYES CLOSED. RESP EVEN AND UNLABORED. NO SIGNS OF DISTRESS. BED LOW, CALL LIGHT IN REACH, DENIES NEEDS. CPOC.
[2017-04-04 07:55] VITALS: BP 111/77
--- NOTE | 2017-04-04 10:00 | NUR ---
MORNING MEDS PASSED AT THIS TIME. PT REFUSED PO MEDS. NICOTINE PATCH PLACED TO R SHOULDER. DRESSING TO R CHEST PORT CHANGED PER PROTOCOL. STERILE TECHNIQUE USED. TOLERATED WELL. BED LOW, CALL LIGHT IN REACH, DENIES NEEDS. CPOC.
--- NOTE | 2017-04-04 12:06 | NUR ---
PATIENT IN BED WITH IV INTACT. COMPLAINTS OF PAIN. FAMILY AT BEDSIDE. SPOKE WITH MOTHER AND TOLD HER I SPOKE WITH INDIGO ABOUT THE PROBLEMS WITH HOSPICE. INDGIO STATED SHE WOULD TALK TO HOSPICE. 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 ROBERT PALACIO CALLED AND THEY SAID THEY WOULD PAGE DR. TRIPLETT FOR THE MEDS.
--- NOTE | 2017-04-04 12:30 | NUR ---
HOSPICE NURSE AT BEDSIDE. PRN DOSES OF PAIN MEDICATION AND ANTIANXIETY MEDICATION ADMINISTERED. RATING CURRENT PAIN IN ABD /. WILL REASSESS.
[2017-04-04 20:00] VITALS: BP 113/81
--- NOTE | 2017-04-04 22:17 | NUR ---
REC'D LYING IN BED RESTING. REPORTED PAIN 05/13. NO DISTRESS NOTED. DENIED FURTHER NEEDS AT THIS TIME. INSTRUCTED TO CALL IF NEEDED ANYTHING. VERBALIZED UNDERSTANDING. WILL CONT TO MONITOR. BED LOW, LOCKED, CALL LIGHT IN REACH. WILL ADMIN PM/AM MEDS PRESCRIBED.
--- NOTE | 2017-04-05 02:41 | NUR ---
PT RESTING IN BED WITH SHALLOW BREATHING. NO DISTRESS NOTED. SIDE RAILS X 2. BED IS LOW. CALL LIGHT IN REACH.
--- NOTE | 2017-04-05 06:28 | NUR ---
RESTING WELL, NO DISTRESS NOTED. WILL CONT TO MONITOR.
--- NOTE | 2017-04-05 07:15 | NUR ---
REPORT RECEIVED FROM RUBBER GOODS REPAIRER NURSE. CALL LIGHT IN REACH.
--- NOTE | 2017-04-05 07:50 | NUR ---
ASSESSMENT COMPLETED. AM MEDS ADMINISTERED EXCEPT FOR ORAL MEDS. CALL LIGHT IN REACH. WILL CONTINUE WITH PLAN OF CARE.
--- NOTE | 2017-04-05 07:53 | NUR ---
PATIENT IN BED EYES CLOSED RESTING QUIETLY WITH NO SIGNS OF DISTRESS. IV INTACT. CATTLE STICKER ON AND WORKING. NO DISCOMFORT NOTED. CALL LIGHT WITHIN REACH.
[2017-04-05 08:35] VITALS: BP 112/73
--- NOTE | 2017-04-05 08:37 | NUR ---
REQUESTING MORE PAIN MEDS. MORPHINE 5 MG PO. MOTHER INSISTS HOSPICE GETS CALLED FOR MORE PAIN MEDS. WILL WAIT ANOTHER HOUR AND BRING DILAUDID AND ATIVAN.
--- NOTE | 2017-04-05 09:11 | NUR ---
PRN ATIVAN ADMINISTERED. WILL GIVE SCHEDULED MORPHINE EARLY IF THIS DOESN'T WORK.
--- NOTE | 2017-04-05 10:46 | NUR ---
RN TRIAGE CHANGED. SCHEDULED MORPHINE WAS ALSO ADMINISTERED. PATIENT WAS ASLEEP BEFORE ADMINISTRATION.
--- NOTE | 2017-04-05 12:20 | NUR ---
RESTING WITH EYES CLOSED. RESP EVEN AND UNLABORED. CALL LIGHT IN REACH.
--- NOTE | 2017-04-05 13:43 | NUR ---
SCHEDULED MOMRPHINE ADMINISTERED AND PRN ATIVAN.
--- NOTE | 2017-04-05 15:26 | NUR ---
MORPHINE AND ATIVAN SCHEDULED. DURAGESIC PATCHES CHANGED. OLD PATCHES WASTED WITH FATUMA DE [place].
--- NOTE | 2017-04-05 16:16 | NUR ---
IN ROOM WITH EYES CLOSED. RESPIRATIONS LABORED.
--- NOTE | 2017-04-05 17:15 | NUR ---
PRN ATIVAN AND MORPHINE ADMINISTERED PER PATIENT AND FAMILY REQUEST.
--- NOTE | 2017-04-05 18:20 | NUR ---
NO CHANGES IN INITIAL ASSESSMENT. CALL LIGHT IN REACH. WILL CONTINUE WITH PLAN OF CARE.
[2017-04-05 20:00] VITALS: BP 97/50
--- NOTE | 2017-04-06 05:16 | NUR ---
HOSPICE/COMFORT MEASURES. MORPHINE SYNTHETIC FILAMENT SPINNER 10MG/CONT AND SCHEDULED MORPHINE FOR PAIN. GAVE PRN MORPHINE ONE TIME. PT REQUESTS PRN ATIVAN FREQENTLY. WILL CONTINUE TO MONITOR.
--- NOTE | 2017-04-06 07:20 | NUR ---
REPORT RECEIVED FROM TAILOR MEN'S READY TO WEAR NURSE. CALL LIGHT IN REACH.
--- NOTE | 2017-04-06 07:51 | NUR ---
REQUESTING MORE PAIN MEDS. NOT TIME FOR ANYTHING EXCEPT FOR DILAUDID IVP WHICH WAS ADMINISTERED PER ORDER. CALL LIGHT IN REACH.
[2017-04-06 08:40] VITALS: BP 97/72
--- NOTE | 2017-04-06 08:48 | NUR ---
TO RADIOLOGY VIA WC WITH GASTROGRAFFIN ENEMA.
--- NOTE | 2017-04-06 09:25 | NUR ---
MOTHER STATES PATIENT NEEDS PAIN MEDS. ADMINISTERED SCHEDULED MORPHINE PO. ALSO ADMINISTERED PRN ATIVAN. MOTHER IN ROOM. CALL LIGHT IN REACH.
--- NOTE | 2017-04-06 10:22 | NUR ---
IN BED WITH EYES CLOSED. NEW VIAL OF MORPHINE INITIATED. FAMILY IN ROOM. CALL LIGHT IN REACH.
--- NOTE | 2017-04-06 12:23 | NUR ---
PRN ATIVAN IV AND SCHEDULED MORPHINE PO. CALL LIGHT IN REACH.
--- NOTE | 2017-04-06 12:53 | NUR ---
RESTING QUIETLY IN BED. DENIES NEEDS. REPORTS PAIN IS STILL BAD EVEN WITH CURRENT PAIN MANAGEMENT REGIMEN. JUST RECEIVED PAIN MEDS. WILL MONITOR.
--- NOTE | 2017-04-06 13:40 | NUR ---
EYES STILL CLOSED. NO DISTRESS NOTED. CALL LIGHT IN REACH.
--- NOTE | 2017-04-06 15:24 | NUR ---
MEDS ADMINISTERED PER ORDER. CALL LIGHT IN REACH.
--- NOTE | 2017-04-06 17:33 | NUR ---
FAMILY IN ROOM. ATIVAN SIVP AND MORPHINE CIRCULAR KNIFE CUTTER MACHINE CHANGED.
--- NOTE | 2017-04-06 18:12 | NUR ---
NO CHANGES IN INITIAL ASSESSMENT. FAMILY IN ROOM. CALL LIGHT IN REACH. WILL CONTINUE WITH PLAN OF CARE.
[2017-04-06 20:00] VITALS: BP 97/68
--- NOTE | 2017-04-06 22:42 | NUR ---
REC'D SITTING UP IN BED. NO DISTRESS NOTED. REPORTED PAIN 05/13. WILL ADMIN PM/AM MEDS PRESCRIBED. INSTUCTED TO CALL IF NEEDED ANYTHING, VERBALIZED UNDERSTANDING. BED LOW, LOCKED, CALL LIGHT IN REACH, WILL CONT TO MONITOR.
--- NOTE | 2017-04-07 02:49 | NUR ---
RESTING QUIETLY,WITHOUT DISTRESS
--- NOTE | 2017-04-07 07:05 | NUR ---
PT LAYING IN BED IN SUPINE POSITION. BRADYPENIC. NO SIGNS OF DISTRESS NOTED. DRESSING TO R CHEST PORT CDI. NO REDNESS OR SWELLING NOTED. BILAT GENERALIZED EDEMA TO LE. BED LOW, CALL LIGHT IN REACH, CPOC.
[2017-04-07 08:11] VITALS: BP 99/70
--- NOTE | 2017-04-07 08:21 | NUR ---
MORNING MEDS PASSED AT THIS TIME. PT REFUSING PO MEDS STILL. MORPHINE CHILDCARE ADMINISTRATOR SYRINGE CHANGED. FAMILY AT BEDSIDE. NO QUESTIONS OR CONCERNS VOICED. BED LOW, CALL LIGHT IN REACH, DENIES NEEDS. CPOC.
--- NOTE | 2017-04-07 10:30 | NUR ---
MORPHINE PATIENT COMPANION SYRINGE CHANGED. SCHEDULED PO MORPHINE ADMINSITERED PER NOV. PRN ATIVAN ADMINISTERED AT THIS TIME ALSO. RATING CURRENT PAIN IN ABD 04/12. WILL REASSESS. BED LOW, CALL LIGHT IN REACH, DENIES NEEDS. CPOC.
--- NOTE | 2017-04-07 11:45 | NUR ---
RESTING WITH EYES CLOSED. FAMILY AT BEDSIDE. PT CONTINUE WITH COMFORT MEASURES PER HOSPICE. PT ESCORT IN USE. BRADYPENIC. CALL LIGHT IN REACH, WILL CONTINUE WITH PLAN OF CARE.
--- NOTE | 2017-04-07 13:05 | NUR ---
MORPHINE PHOTOCOPYING EQUIPMENT MECHANIC SYRINGE CHANGED. PRN ATIVAN ADMINISTERED, AND SCHEDULED MORPHINE ADMINISTERED PER NOV. CURRENT PAIN LEVEL 8/10 IN ABD. WILL REASSESS. BED LOW, CALL LIGHT IN REACH, DENIES NEEDS. CPOC.
--- NOTE | 2017-04-07 16:30 | NUR ---
MORPHINE RECTIFYING OPERATOR SYRINGE CHANGED AT THIS TIME. SCHEDULED PO MORPHINE ADMINSTERED PER NOV. CURRENT PAIN IN ABD 04/12. WILL REASSESS. NO FAMILY AT BEDSIDE AT THIS TIME. BED LOW, CALL LIGHT IN REACH, DENIES NEEDS. CPOC.
[2017-04-07 16:32] VITALS: BP 94/65
[2017-04-07 20:00] VITALS: BP 94/64
--- NOTE | 2017-04-07 20:18 | NUR ---
LYING IN BED,WITHOUT SIGNS OF DISTRESS.CALL LIGHT IN REACH
--- NOTE | 2017-04-07 22:44 | NUR ---
REC'D LYING IN BED. ALERT AND ORIENTED X4. REPORTED PAIN 9/10. WILL ADMIN PM/AM MEDS PRESCRIBED. NO DISTRESS NOTED. INSTRUCTED TO CALL IF NEEDED ANYTHING VERBALIZED UNDERSTANDING. WILL CONT TO MONITOR
[2017-04-08] VITALS: BP 98/69
--- NOTE | 2017-04-08 07:00 | NUR ---
PT REC'D FROM ROBERT WISE. RESTING IN BED WITH EYES CLOSED. MOTHER AT BEDSIDE. AAOX4. RATING CURRENT PAIN IN ABD 04/12. MORPHINE BOILERMAKER'S ASSISTANT INFUSING CONTINUOUSLY. WILL ADMINISTER PRN MEDICATION. GENERALIZED EDEMA TO LLE. PROPED UP ON PILLOW. BED LOW, CALL LIGHT IN REACH, DENIES NEEDS. CPOC.
[2017-04-08 08:15] VITALS: BP 98/54
--- NOTE | 2017-04-08 08:50 | NUR ---
MORNING MEDS PASSED AT THIS TIME. REFUSING PO MEDICATION. MORPHINE SELF PROPELLED HOT MIX ROLLER OPERATOR SYRINGE CHANGED AT THIS TIME. SCHEDULED ATIVAN ADMINISTERED PER NOV. PRN MORPHINE ADMINISTERED AT THIS TIME WELL. BED LOW, CALL LIGHT IN REACH, DENIES NEEDS. CPOC.
--- NOTE | 2017-04-08 10:52 | NUR ---
PATIENT ALERT IN BED WITH PRIMARY NURSE ROBERT PALACIO AT BEDSIDE. SIDE RAILS UP X2. BED IN LOW POSITION. CALL LIGHT IN REACH.
--- NOTE | 2017-04-08 11:05 | NUR ---
MORPHINE CHAIN MAKER LOOM CONTROL SYRINGE CHANGED AT THIS TIME. MOTHER AT BEDSIDE. BED LOW, CALL LIGHT IN REACH, DENIES NEEDS. CPOC.
--- NOTE | 2017-04-08 14:48 | NUR ---
PT RESTING IN BED WITH EYES CLOSED. NO SIGNS OF DISTRESS. BRADYPEANIC. BED LOW, CALL LIGHT IN REACH, CPOC.
[2017-04-08 19:00] VITALS: BP 82/53
--- NOTE | 2017-04-08 19:22 | NUR ---
PT LYING IN BED EYES CLOSED, BP 82/53 P 127 R-19 O2 -90, EVEN RISE AND FALL OF CHEST NO SIGNS OF DISTRESS, BED IN LOW POSITION, CALL LIGHT IN REACH
--- NOTE | 2017-04-09 07:07 | NUR ---
REPORT RECEIVED FROM REGIONAL TRAINING MANAGER NURSE. CALL LIGHT IN REACH.
--- NOTE | 2017-04-09 07:55 | NUR ---
ASSESSMENT COMPLETED. AM MEDS ADMINISTERED EXCEPT FOR ORAL PILLS AND MIRALAX. ZOFRAN AND ATIVAN IVP. CALL LIGHT IN REACH. MOTHER IN ROOM. WILL CONTINEU WITH PLAN OF CARE.
--- NOTE | 2017-04-09 08:00 | NUR ---
CONTINUES HAVING NAUSEA AND VOMITING AT THIS TIME. MOTHER AT BEDSIDE. CONTINOUS FLAVOR MAKER IN USE FOR PAIN CONTROL.
[2017-04-09 08:15] VITALS: BP 90/53
--- NOTE | 2017-04-09 09:00 | NUR ---
MOTHER WANTS MORE PAIN MEDS GIVEN. MORPHINE 5 MG PO.
--- NOTE | 2017-04-09 09:58 | NUR ---
STILL C/O NAUSEA. PHENERGAN 25 MG CRUSHED AND ADMINISTERED WITH SCHEDULED MORPHINE.
--- NOTE | 2017-04-09 11:10 | NUR ---
VOMITING AGAIN AT THIS TIME. ZOFRAN 4 MG SIVP AND ATIVAN 2 MG SIV[P. MOTHER AND OTHER FAMILY MEMBER IN ROOM AT THIS TIME.
--- NOTE | 2017-04-09 13:41 | NUR ---
NEW VIAL OF MORPHINE ACCOUNTANT PROPERTY INITIATED. AWAKENED FOR SCHEDULED MORPHINE. WAS ABLE TO SWALLOW THE 1ST ONE BUT THE 2ND ONE HE VOMITED.
--- NOTE | 2017-04-09 14:29 | NUR ---
PRN ATIVAN ADMINISTERED PER ORDER FOR ANXIETY.
[2017-04-09 14:50] VITALS: BP 187/87
--- NOTE | 2017-04-09 14:50 | NUR ---
2ND UNIT OF PRBC INITIATED @ 100 CC/HR VIA PUMP. IN ROOM. CALL LIGHT IN REACH.
--- NOTE | 2017-04-09 16:05 | NUR ---
HOSPICE NURSE SATES THAT PATIENT WAS IN PAIN AND NAUSEATED. SCHEDULED MORPHINE AND ATIVAN ADMINISTERED. ALSO PRN PHENERGAN CRUSHED AND ADMINISTERED WITH MORPHINE.
--- NOTE | 2017-04-09 18:27 | NUR ---
DILAUDID AND ATIVAN IVP. FAMILY IN ROOM. CALL LIGHT IN REACH. WILL CONTINUE WITH PLAN OF CARE.
[2017-04-09 19:00] VITALS: BP 81/54
--- NOTE | 2017-04-09 19:39 | NUR ---
PT LYING ON RT SIDE, VERBALIZED PAIN IS AT A 7, STILL NAUSEOUS, CHANGED CASHIER CHECKER PUMP, PT VERBALIZED NO OTHER NEEDS AT THIS TIME. BED IN LOW POSITION CALL LIGHT IN REACH PT HAS FAMILY WITH HIM
--- NOTE | 2017-04-10 02:00 | NUR ---
PT IN BED WITH NO DISTRESS. RESPIRATIONS EVEN AND UNLABORED. SIDE RAILS X 2. BED LOW. CALL LIGHT IN REACH.
--- NOTE | 2017-04-10 07:15 | NUR ---
REPORT RECEIVED FROM DELIVERY MANAGER NURSE. CALL LIGHT IN REACH.
[2017-04-10 08:42] VITALS: BP 93/58
--- NOTE | 2017-04-10 09:25 | NUR ---
ASSESSMENT COMPLETED. DILAUDID 4 MG AND ATIVAN 2 MG SIVP. NICOTINE PATCH. CALL JACYI N REACH. WILL CONTINUE WITH PLAN OF CARE. MOTHER AT BEDSIDE. WILL CONTINUE WITH PLAN OF CARE.
--- NOTE | 2017-04-10 10:30 | NUR ---
RESTING QUIETLY WITH EYES CLOSED. NO S/S OF DISTRESS. CL IN REACH.
--- NOTE | 2017-04-10 11:04 | NUR ---
IV TUBING CHANGED PER HOSPITAL POLICY WITH NEW BAG OF SALINE.
--- NOTE | 2017-04-10 12:00 | NUR ---
VERY ANXIOUS AT THIS TIME. FAMILY REQUESTING ATIVAN SO ADMINISTERED IV PER ORDER. CALL LIGHT IN REACH.
--- NOTE | 2017-04-10 14:10 | NUR ---
HOSPICE NURSE IN ROOM. ATIVAN 2 MG SIVP PER C/O ANXIETY. ZOFRAN 8 MG SIVP PER C/O NAUSEA.
--- NOTE | 2017-04-10 16:40 | NUR ---
FAMILY. RESTING WITH EYES CLOSED. RESP EVEN AND UNLABORED. BED ALARM ON. CALL LIGHT IN REACH.
--- NOTE | 2017-04-10 17:34 | NUR ---
UNABLE TO CHANGED SETTINGS TO 12 MG CONTINUOUS LABORATORY ASST. SPOKE WITH LATHE MACHINE OPERATOR AND SHE SAID WE CAN SCHEDULE THE OTHER 2 MG IV. CALL LIGHT IN REACH.
--- NOTE | 2017-04-10 18:24 | NUR ---
RESTING WITH EYES CLOSED. RESP EVEN AND UNLABORED. CALL LIGHT IN REACH. FAMILY IN ROOM. WILL CONTINUE WITH PLAN OF CARE.
[2017-04-10 19:00] VITALS: BP 82/54
--- NOTE | 2017-04-10 19:17 | NUR ---
PT IS LYING IN BED WITH EYES CLOSED, MOTHER STATED PT STILL SICK AND VOMITING, BED IN LOW POSITION CALL LIGHT IN REACH
--- NOTE | 2017-04-11 02:00 | NUR ---
PT IN BED RESTING. VISITOR AT BEDSIDE. SHALLOW BREATHING AT THIS TIME. SIDE RAILS X 2. BED LOW. CALL LIGHT IN REACH.
--- NOTE | 2017-04-11 07:20 | NUR ---
REPORT RECEIVED FROM CARRIAGE RIDER NURSE. CALL LIGHT IN REACH.
--- NOTE | 2017-04-11 08:17 | NUR ---
ASSESSMENT COMPLETED. AM MEDS ADMINISTERED EXCEPT FOR ORAL MEDS. ALARM ON. CALL LIGHT IN REACH. WILL CONTINUE WITH PLAN OF CARE.
[2017-04-11 08:38] VITALS: BP 78/47
--- NOTE | 2017-04-11 09:15 | NUR ---
PATIENT ALERT IN BED WITH FAMILY AND PRIMARY NURSE LUGO, WAX POT TENDER PRESENT. NO SIGNS OF DISTRESS NOTED. SIDE RAILS UP X2. BED IN LOW POSITION. CALL LIGHT IN REACH.
--- NOTE | 2017-04-11 09:20 | NUR ---
FANNIE BONILLA INITIATED PER ORDER. MOTHER IN ROOM. DR. CUNNINGHAM WAS JUST IN ROOM SPEAKING WITH MOTHER AND PATIENT.
--- NOTE | 2017-04-11 10:37 | NUR ---
VERY IRRITABLE AT THIS TIME. ATIVAN AND SCHEDULED MORPHINE ADMINISTERED PER ORDER. AUNT AT BEDSIDE. CALL LIGHT IN REACH.
--- NOTE | 2017-04-11 12:15 | NUR ---
NEW PHOTOVOLTAIC PANEL INSTALLER VIAL INITIATED. SCHEDULED IV MORPHINE ADMINISTERED PER ORDER. CALL LIGHT IN REACH.
--- NOTE | 2017-04-11 14:46 | NUR ---
DURAGESIC PATCHES CHANGED. ATIVAN AND MORPHINE IV. CALL LIGHT IN REACH.
--- NOTE | 2017-04-11 15:58 | NUR ---
HOSPICE NURSE HERE IN ROOM TO SEE THE PATIENT.
--- NOTE | 2017-04-11 16:47 | NUR ---
VALIUM IVP PER ORDER. PHENERGAN IVP PER FATUMA MONREAL. RACK PRODUCTION WORKER IN ROOM. FAMILY ALSO IN ROOM AT THIS TIME. CALL LIGHT IN REACH.
--- NOTE | 2017-04-11 18:50 | NUR ---
FAMILY AT BEDSIDE. CALL LIGHT IN REACH. BED ALARM ON. WILL CONTINUE WITH PLAN OF CARE.
--- NOTE | 2017-04-11 19:07 | NUR ---
MOTHER REFUSED WEBB NEEDLE CHANGE AND INFUSAPORT DRSG CHANGE.
[2017-04-11 20:00] VITALS: BP 100/67
--- NOTE | 2017-04-12 07:40 | NUR ---
PT ASSESSMENT PT REMAINS ON HOSPICE CARE WITH MORPHINE INFUSING AT 10 MG /HR CONTINUOUS INFUSION ZOFRAN AT 4.7 AND NS AT KVO TO RIGHT CHEST INFUSAPORT DRESSING CLEAN DRY AND INTACT. MOTHER AT BEDSIDE. PT RESTLESS AT THIS TIME WILL GIVE MEDS PER ORDER.
--- NOTE | 2017-04-12 08:00 | NUR ---
LYING IN BED WITHOUT DISTRESS.FAMILY AT SIDE.
[2017-04-12 08:26] VITALS: BP 96/59
--- NOTE | 2017-04-12 10:45 | NUR ---
PT WITH GURGLING SOUNDS NOTED WITH BREATHING QUESTIONED PER FAMILY ABOUT SUCTION TOLD FAMILY IF IT WAS THEIR WISH I WOULD OBTAIN ORDER FOR SUCTION FOR COMFORT. FAMILY DECIDED AT THAT TIME TO ONLY USE ATROPINE DROPS
--- NOTE | 2017-04-12 11:25 | NUR ---
PT FAMILY AT NURSES STATION REQUESTED THAT PT BE SUCTIONED ANOTHER STAFF NURSE SET UP SUCTION AND SUCTION PT NO RETURN PT VERY AGGITATED AND ORAL SUCTION WAS ATTEMPTED X 2 PER STAFF NURSE HOWEVER WITH NO RESULT.
--- NOTE | 2017-04-12 11:45 | NUR ---
PT AGGIATED PULLING AT COVER AND FIGITING GIVEN 2 MG IVP ATIVAN PER ORDER WELL SCHEDULED MORPHINE 4 MG
--- NOTE | 2017-04-12 11:55 | NUR ---
CALLED TO PT ROOM PER FAMILY PT WITH NO NOTED RESPIRATIONS AND NO HEART RATE AUSCULTATED. PT FAMILY AT BEDSIDE EXPRESSED SYMPATHY AND CALL PLACED TO mmCHANNEL [phone]
--- NOTE | 2017-04-12 12:50 | NUR ---
DR CAMP FROM ER HERE TO PRONOUNCE .
--- NOTE | 2017-04-12 13:18 | NUR ---
SPOKE WITH LATESHA AT [facility] REFRENCE NUMBER [id number]
--- NOTE | 2017-04-12 13:30 | NUR ---
[facility] CALLED FOR TRANSPORT OF REMAINS. PER HOSPICE NURSE PT GIVEN BED BATH AND POST MORTEM CARE PERFORMED
--- NOTE | 2017-04-12 14:09 | NUR ---
PT REMAINS LEFT VIA STRETCHER WITH [facility]
== END 2017-04-12 14:09 | DRG 951 ==
LOC: D.MS 16:41
PROVIDERS: ADMIT Legal Medicine
DX: Z51.5 Encounter for palliative care (principal)